=== PATIENT | female | born 1960 | race Caucasian/White ===

== ENCOUNTER → 2018-02-01 09:33 | Outpatient (CLI) | payer OTHER, SELFPAY | DX: Z23 Encounter for immunization (principal) | CPT/HCPCS: 90471; 90686 ==

== ENCOUNTER → 2019-02-09 14:20 | Outpatient (CLI) | payer OTHER, SELFPAY | PROVIDERS: PCP Family Medicine | DX: Z23 Encounter for immunization (principal) | CPT/HCPCS: 90471; 90686 ==

== ENCOUNTER → 2019-04-13 06:39 | Outpatient (CLI) | payer OTHER, SELFPAY ==
--- NOTE | 2019-04-13 06:42 | DI.MRI.S_ITS ---
PROCEDURE: MR STROKE Pre- and post-contrast brain MRI, non-contrast brain MR angiogram, pre- and postcontrast neck MR angiogram INDICATIONS: Vertigo hearing loss on right and confusion TECHNIQUE: Brain: Noncontrast axial T1 spin echo, axial T2 fast spin echo, sagittal and axial FLAIR, coronal T2 fast spin echo, axial gradient echo, axial diffusion and ADC through the brain. After the administration of contrast, axial 3D VIBE of the cranial vasculature and brain. Brain MRA: Non-contrast 3-D time of flight MR angiogram, with multiple covvyaq-bvpdzopim-vweesrxezp (MIP) reformats performed. Neck MRA: Axial and sagittal TruFISP through the neck. Coronal dynamic MR angiogram during administration of contrast in the arterial and venous phases, with 3-dimenstional rdtxyhr-tqzkxbivk-jehiontapb (MIP) reformats constructed from subtraction images. COMPARISON: None. FINDINGS: Image quality: Excellent. BRAIN: CSF spaces: Ventricles are normal in size and shape. Basal cisterns are patent. No extra-axial fluid collections. Brain: No intracranial bleeds or mass effects. There is mild cerebral volume loss. Mild periventricular and subcortical white matter chronic small vessel ischemic changes are present. Diffusion weighted images show no acute ischemic insults. Brainstem appears normal. Normal intravascular flow voids are present. No abnormal intracranial enhancement. Skull and face: Calvarial marrow signal is normal. Orbits appear normal. Sinuses: Sinuses and mastoids are clear. BRAIN MR ANGIOGRAM: Anterior circulation: Intracranial internal carotid arteries are normal in size and enhancement. The flow within the paired anterior cerebral arteries is normal and symmetric. The flow within the middle cerebral arteries is normal and symmetric. The anterior communicating artery is seen. No stenoses, occlusions, or aneurysms. Posterior circulation: The visualized portions of the vertebral arteries demonstrate normal caliber, and join to form a normal appearing basilar artery. The flow within the posterior cerebral arteries is normal and symmetric. No stenoses, occlusions, or aneurysms. NECK MR ANGIOGRAM: Carotids: Great vessels demonstrate a conventional anatomy as they arise from the aortic arch. The origins of the common carotid arteries appear patent. The calibers and courses of both common carotid arteries are normal. The bifurcation regions appear normal bilaterally. The internal carotid arteries demonstrate normal course and caliber. Posterior circulation: The origins of the vertebral arteries appear patent. More superior portions of both vertebral arteries demonstrate normal course and caliber, and join to form a normal appearing basilar artery. Miscellaneous: Subclavian arteries appear patent. Pre-contrast images through the neck show no soft tissue abnormalities. IMPRESSION: BRAIN MRI: 1. No acute intracranial abnormalities. 2. Cerebral volume loss and chronic microvascular ischemic changes. BRAIN MR ANGIOGRAM: 1. No high-grade stenosis or occlusion in anterior circulations. 2. No high-grade stenosis or occlusion in posterior circulations. NECK MR ANGIOGRAM: 1. High-grade stenosis (>70%) in proximal left vertebral artery. 2. Mild stenosis (~30%) in proximal right common carotid artery. Dictated by: Pankaj López M.D. on 04/13/2019 at 9:32 Approved by: Pankaj López M.D. on 04/13/2019 at 19:17
== END ==
PROVIDERS: PCP Family Medicine; Visit Provider Family Medicine
DX: I65.02 Occlusion and stenosis of left vertebral artery (principal); I65.21 Occlusion and stenosis of right carotid artery; H91.90 Unspecified hearing loss, unspecified ear; R41.0 Disorientation, unspecified; R42 Dizziness and giddiness
CPT/HCPCS: 70548; 70553

== ENCOUNTER → 2019-04-18 07:30 | Outpatient (ROUT) | payer OTHER, SELFPAY ==
[2019-04-18 08:13] LABS: Cholesterol 206 mg/dL (140-199); Glucose 108 mg/dL (80-110); HDL Cholesterol 46 mg/dL (40-60); LDL Cholesterol Calculated 144 mg/dL (<100); Triglycerides 82 mg/dL (35-150)
== END ==
PROVIDERS: PCP Family Medicine; Visit Provider Family Medicine
DX: Z13.220 Encounter for screening for lipoid disorders (principal)
CPT/HCPCS: 36415; 80061; 82947

== ENCOUNTER 2019-04-23 12:15 | Outpatient (RCR) | payer OTHER, SELFPAY ==
--- NOTE | 2019-04-14 14:54 | PT.OIE ---
Current Diagnoses Dizziness and giddiness (04/14/19) Past Medical History (Last Updated 08/21/18 @ 10:27 by Venus Mckay MD) Genital herpes (Chronic) Seasonal allergies (Chronic) Past Surgical History (Last Updated 08/21/18 @ 10:27 by Venus Mckay MD) Status post appendectomy (Resolved) Status post delivery (Resolved 10/15/79) Visit Care Team Role Provider Type Venus Mckay MD Attending Provider Physician Primary Care Provider Specialty: [facility] Address: [address] [place] [address] Email: [email or web address] Physical Therapy Initial Evaluation PT-OP-A Visit Information Start: 04/14/19 07:32 Freq: Status: Active Protocol: Document 04/14/19 09:02 MB (Rec: 04/14/19 09:39 MB [id number]) Out-Patient Physical Therapy Visit Information Visit Information Visit Type Initial Evaluation Visit Note Pt has 60 visits Visit Start Time 09:02 Visit Stop Time 09:42 Total Visit Minutes 40 Visit Number 60 Evaluation Information Evaluation Date 04/14/19 PT-OP-B Current Condition Start: 04/14/19 07:32 Freq: Status: Active Protocol: Document 04/14/19 09:02 MB (Rec: 04/14/19 09:39 MB [id number]) Current Condition History of Current Condition Onset Date 04/05/19 Current Complaints Dizziness and neck stiffness History of Current Condition 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 She couldn 't remember her passwords. The next date, she had spinning vertigo when looking down and to the right. She is getting better. She has a strong family history of strokes. Her father and mother had ischemic strokes. Her half-sister had a hemmorrhagic stroke at age 60 and from that. She does not get HAs. Since she was 13 y/o she started having chiropractor care for dizziness and C1-2. She has an adjustment 6-12x/year when she gets dizzy. She us getting high velocity manipulations. She started seeing the optician manager as well. She had manipulation yesterday and was dizzy after treatment . 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 She works 3 12s. Pt sleeps on her right side or back and she has right UE numbness when lying on her right side. Pt denies passing out. She feels light-headed. Pt reports hearing loss in right ear. Pt reports roaring in right ear occ. Pt reports history of fear of heights. Pt reports upper orbital tension, deviated septum and all right sided plugged up. Pt reports right side of jaw goes out. The chiropractor adjusted it yesterday. She is no longer chewing gum. She has upped her B12. Pt went to ENT 2 years ago and she was checked out for BPPV. Prior Treatments and Tests ENT d/t dizziness Regular chiropractor upper cervical manipulations for greater than 45 years d/t dizziness and neck stiffness MRI/MRA head yesterday revealed NAD and 30% occlusion right carotid and 70% left vertebral arteries Future Testing and Treatments Planned Pt is willing to defer future chiropractor manipulations. 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 PT-OP-C Subjective Start: 04/14/19 07:32 Freq: Status: Active Protocol: Document 04/14/19 09:02 MB (Rec: 04/14/19 12:55 MB [id number]) OP-PT Subjective Patient Comments Patient Comments See history of current condition section Patient Questionnaires Dizziness Handicap Inventory DHI Score 72/100, perception of severe handicap DHI Functional Impairment 60 to 79% Impaired (Score 60- 79) PT-OP-K Range of Motion Start: 04/14/19 07:32 Freq: Status: Active Protocol: Document 04/14/19 09:02 MB (Rec: 04/14/19 12:55 MB [id number]) Cervical Spine Range of Motion Cervical Spine Active Testing Position Standing Flexion 20 Extension 30 Rotation Left 70 Rotation Right 60 Shoulder Goniometric Range of Motion Shoulder ROM Limitations Comments B functional PT-OP-M Strength Start: 04/14/19 07:32 Freq: Status: Active Protocol: Document 04/14/19 09:02 MB (Rec: 04/14/19 12:55 MB [id number]) Shoulder Strength Shoulder Manual Muscle Testing Left Flexion 5 Normal Abduction (C5) 5 Normal Right Flexion 5 Normal Abduction (C5) 5 Normal Elbow/Forearm Strength Elbow and Forearm Manual Muscle Testing Left Flexion (C6) 5 Normal Extension (C7) 5 Normal Pronation 5 Normal Supination 5 Normal Right Flexion (C6) 5 Normal Extension (C7) 5 Normal Pronation 5 Normal Supination 5 Normal Wrist Strength Wrist Manual Muscle Testing Left Flexion (C7) 5 Normal Extension (C6) 5 Normal Right Flexion (C7) 5 Normal Extension (C6) 5 Normal PT-OP-O Vestibular Start: 04/14/19 07:33 Freq: Status: Active Protocol: Document 04/14/19 09:02 MB (Rec: 04/14/19 12:55 MB [id number]) Vestibular Assessment Visual Testing Smooth Pursuits Horizontal Normal Smooth Pursuits Vertical Normal Convergence Test WNL Spontaneous Nystagmus Negative Positional Testing Kelly-Hallpike Negative Left,Negative Right Rolling Test Negative Left,Negative Right Supine to Sit Negative Sit to Supine Negative PT-OP-T Assessment and Plan Start: 04/14/19 07:32 Freq: Status: Active Protocol: Document 04/14/19 09:02 MB (Rec: 04/14/19 12:55 MB [id number]) Physical Therapy Assessment Rehab Potential Rehabilitation Potential Good Evaluation Complexity Number of Personal Factors/Comorbidities 1-2 Number of Body Systems Impaired 1-2 Impairments Impairments Pain,Posture,Soft Tissue Mobility,Vestibular Other Impairments 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 Systems involved include vestibular, cervical, possible left vertebral artery , postural. Goals 4 Chef Head Goal (LTG) Pt will perform progressive HEP with I including postural, ROM, VOR, core, shoulder and intrascapular strengthening by 06/15/19. 3 Jail Goal (LTG) Pt will report a 75% improvement in neck stiffness by 06/15/19. LTG Duration 8 weeks 2 Jail Goal (LTG) Pt will present with improved cervical AROM to extension to 30 deg and B rotation to 60 deg without pain by 06/15/19. LTG Duration 8 weeks 1 Chef Head Goal (LTG) Pt will present with improved Dizziness Handicap Index score to reflect no more than low perception of handicap by 06/15. LTG Duration 8 weeks Assessment Summary Assessment Pt is a 59 y/o female presenting with reports of positional vertigo when looking down and to the right that has been improving. She reports a long histoy of dizziness that started when she was 13 y/o and she reports having received intensive care medicine specialist for high velocity manipulations of C1-2 since she was 13 y/o. PT reviewed MRI/MRA of the head yesterday that reveals 70% stenosis left vertebral and 30% stenosis of right carotid. PT encourages pt to follow-up with doctor about findings and PT does encourage pt to reconsider no longer receiving upper cervical cavitations by chiropractor and to monitor her BP and cholesterol. She cut out dairy and thinks this may be helpful. Central screen is negative today. VOR Head Thrust deferred today d/t triaging and pt complaints of pain when she moves her head and with positional vertigo testing. Kelly-Hallpike and Roll Testing are both negative B this date for nystagmus and dizziness. She does not present with BPPV this date. Pt does present with decreasing BP supine to stand and reports history of feeling light-headed. BP & HR in left UE: supine 127/88, 79; standing 110/89, 98 and machine does not read after this. It is possible that pt does present with orthostasis given 17 mmHg drop and symptoms. Pt presents with decreased cervical ROM and pain with rotation and this indicates a cervicogenic component to her sxs. Decreased cervical ROM and pain with cervical rotation limit head movement and engagement of the VOR. In this manner, she will benefit from cervical and postural exercises as well. Pt will benefit from PT for vestibular , postural, cervical and balance training. Barriers include work requirements with long hours at the computer and vertebral artery changes. Physical Therapy Plan Frequency and Duration Frequency of Treatment 2x/Week Duration of Treatment 8 weeks Plan of Care Start Date 04/14/19 Plan of Care End Date 06/15/19 Therapeutic Interventions Therapeutic Interventions Balance Training,Canalithic Repositioning,Home Exercise Program,Manual Therapy, Neuromuscular Re-education, Patient/Caregiver Education, Self-Care/Home Management,Soft Tissue Mobilization,Taping, Therapeutic Exercises, Vestibular Rehabilitation Modalities Cold Pack/Ice Massage,Electric Stimulation,Hot Packs, Ultrasound Next Visit Focus/Plan Next Note Type Treatment Note Next Visit Plan Assess VOR via DVA eye chart and give exercises as appropriate, consider other cervical exercises including racquet ball with gentle cervical rotation.
--- NOTE | 2019-04-14 14:58 | PT.OIE ---
Current Diagnoses Dizziness and giddiness (04/14/19) Past Medical History (Last Updated 08/21/18 @ 10:27 by Venus Mckay MD) Genital herpes (Chronic) Seasonal allergies (Chronic) Past Surgical History (Last Updated 08/21/18 @ 10:27 by Venus Mckay MD) Status post appendectomy (Resolved) Status post delivery (Resolved 10/15/79) Visit Care Team Role Provider Type Venus Mckay MD Attending Provider Physician Primary Care Provider Specialty: [facility] Address: [address] [place] [address] Email: [email or web address] Physical Therapy Initial Evaluation PT-OP-A Visit Information Start: 04/14/19 07:32 Freq: Status: Active Protocol: Document 04/14/19 09:02 MB (Rec: 04/14/19 09:39 MB [id number]) Out-Patient Physical Therapy Visit Information Visit Information Visit Type Initial Evaluation Visit Note Pt has 60 visits Visit Start Time 09:02 Visit Stop Time 09:42 Total Visit Minutes 40 Visit Number 60 Evaluation Information Evaluation Date 04/14/19 PT-OP-B Current Condition Start: 04/14/19 07:32 Freq: Status: Active Protocol: Document 04/14/19 09:02 MB (Rec: 04/14/19 09:39 MB [id number]) Current Condition History of Current Condition Onset Date 04/05/19 Current Complaints Dizziness and neck stiffness History of Current Condition 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 She couldn 't remember her passwords. The next date, she had spinning vertigo when looking down and to the right. She is getting better. She has a strong family history of strokes. Her father and mother had ischemic strokes. Her half-sister had a hemmorrhagic stroke at age 60 and from that. She does not get HAs. Since she was 13 y/o she started having chiropractor care for dizziness and C1-2. She has an adjustment 6-12x/year when she gets dizzy. She us getting high velocity manipulations. She started seeing the patient services manager as well. She had manipulation yesterday and was dizzy after treatment . 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 She works 3 12s. Pt sleeps on her right side or back and she has right UE numbness when lying on her right side. Pt denies passing out. She feels light-headed. Pt reports hearing loss in right ear. Pt reports roaring in right ear occ. Pt reports history of fear of heights. Pt reports upper orbital tension, deviated septum and all right sided plugged up. Pt reports right side of jaw goes out. The chiropractor adjusted it yesterday. She is no longer chewing gum. She has upped her B12. Pt went to ENT 2 years ago and she was checked out for BPPV. Prior Treatments and Tests ENT d/t dizziness Regular chiropractor upper cervical manipulations for greater than 45 years d/t dizziness and neck stiffness MRI/MRA head yesterday revealed NAD and 30% occlusion right carotid and 70% left vertebral arteries Future Testing and Treatments Planned Pt is willing to defer future chiropractor manipulations. 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 PT-OP-C Subjective Start: 04/14/19 07:32 Freq: Status: Active Protocol: Document 04/14/19 09:02 MB (Rec: 04/14/19 12:55 MB [id number]) OP-PT Subjective Patient Comments Patient Comments See history of current condition section Patient Questionnaires Dizziness Handicap Inventory DHI Score 72/100, perception of severe handicap DHI Functional Impairment 60 to 79% Impaired (Score 60- 79) PT-OP-K Range of Motion Start: 04/14/19 07:32 Freq: Status: Active Protocol: Document 04/14/19 09:02 MB (Rec: 04/14/19 12:55 MB [id number]) Cervical Spine Range of Motion Cervical Spine Active Testing Position Standing Flexion 20 Extension 30 Rotation Left 70 Rotation Right 60 Shoulder Goniometric Range of Motion Shoulder ROM Limitations Comments B functional PT-OP-M Strength Start: 04/14/19 07:32 Freq: Status: Active Protocol: Document 04/14/19 09:02 MB (Rec: 04/14/19 12:55 MB [id number]) Shoulder Strength Shoulder Manual Muscle Testing Left Flexion 5 Normal Abduction (C5) 5 Normal Right Flexion 5 Normal Abduction (C5) 5 Normal Elbow/Forearm Strength Elbow and Forearm Manual Muscle Testing Left Flexion (C6) 5 Normal Extension (C7) 5 Normal Pronation 5 Normal Supination 5 Normal Right Flexion (C6) 5 Normal Extension (C7) 5 Normal Pronation 5 Normal Supination 5 Normal Wrist Strength Wrist Manual Muscle Testing Left Flexion (C7) 5 Normal Extension (C6) 5 Normal Right Flexion (C7) 5 Normal Extension (C6) 5 Normal PT-OP-O Vestibular Start: 04/14/19 07:33 Freq: Status: Active Protocol: Document 04/14/19 09:02 MB (Rec: 04/14/19 12:55 MB [id number]) Vestibular Assessment Visual Testing Smooth Pursuits Horizontal Normal Smooth Pursuits Vertical Normal Convergence Test WNL Spontaneous Nystagmus Negative Positional Testing Kelly-Hallpike Negative Left,Negative Right Rolling Test Negative Left,Negative Right Supine to Sit Negative Sit to Supine Negative PT-OP-T Assessment and Plan Start: 04/14/19 07:32 Freq: Status: Active Protocol: Document 04/14/19 09:02 MB (Rec: 04/14/19 12:55 MB [id number]) Physical Therapy Assessment Rehab Potential Rehabilitation Potential Good Evaluation Complexity Number of Personal Factors/Comorbidities 1-2 Number of Body Systems Impaired 1-2 Impairments Impairments Pain,Posture,Soft Tissue Mobility,Vestibular Other Impairments 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 Systems involved include vestibular, cervical, possible left vertebral artery , postural. Goals 4 Casino Attendant Goal (LTG) Pt will perform progressive HEP with I including postural, ROM, VOR, core, shoulder and intrascapular strengthening by 06/15/19. 3 Jail Goal (LTG) Pt will report a 75% improvement in neck stiffness by 06/15/19. LTG Duration 8 weeks 2 Jail Goal (LTG) Pt will present with improved cervical AROM to extension to 30 deg and B rotation to 60 deg without pain by 06/15/19. LTG Duration 8 weeks 1 Casino Attendant Goal (LTG) Pt will present with improved Dizziness Handicap Index score to reflect no more than low perception of handicap by 06/15. LTG Duration 8 weeks Assessment Summary Assessment Pt is a 59 y/o female presenting with reports of positional vertigo when looking down and to the right that has been improving. She reports a long histoy of dizziness that started when she was 13 y/o and she reports having received health care legal assistant for high velocity manipulations of C1-2 since she was 13 y/o. PT reviewed MRI/MRA of the head yesterday that reveals 70% stenosis left vertebral and 30% stenosis of right carotid. PT encourages pt to follow-up with doctor about findings and PT does encourage pt to reconsider no longer receiving upper cervical cavitations by chiropractor and to monitor her BP and cholesterol. She cut out dairy and thinks this may be helpful. Central screen is negative today. VOR Head Thrust deferred today d/t triaging and pt complaints of pain when she moves her head and with positional vertigo testing. Kelly-Hallpike and Roll Testing are both negative B this date for nystagmus and dizziness. She does not present with BPPV this date. Pt does state that she has had bouts of dizziness in the past, right aural plugging with sinus pressure and some hearing changes including right ear hearing loss and roaring. Possible work-up for Meniere's Disease may be appropriate in the future. Pt does present with decreasing BP supine to stand and reports history of feeling light-headed. BP & HR in left UE: supine 127/88, 79; standing 110/89, 98 and machine does not read after this. It is possible that pt does present with orthostasis given 17 mmHg drop and symptoms. Pt presents with decreased cervical ROM and pain with rotation and this indicates a cervicogenic component to her sxs. Decreased cervical ROM and pain with cervical rotation limit head movement and engagement of the VOR. In this manner, she will benefit from cervical and postural exercises as well. Pt will benefit from PT for vestibular , postural, cervical and balance training. Barriers include work requirements with long hours at the computer and vertebral artery changes. Physical Therapy Plan Frequency and Duration Frequency of Treatment 2x/Week Duration of Treatment 8 weeks Plan of Care Start Date 04/14/19 Plan of Care End Date 06/15/19 Therapeutic Interventions Therapeutic Interventions Balance Training,Canalithic Repositioning,Home Exercise Program,Manual Therapy, Neuromuscular Re-education, Patient/Caregiver Education, Self-Care/Home Management,Soft Tissue Mobilization,Taping, Therapeutic Exercises, Vestibular Rehabilitation Modalities Cold Pack/Ice Massage,Electric Stimulation,Hot Packs, Ultrasound Other Referrals/Consults Referrals/Consults Recommended Follow-up with doctor about fluctuating/dropping BP. Also, pt with chronic episodic dizziness, roaring and hearing loss in right ear and so work -up for Meniere's may be appropriate in the future. Also, recommend that she follow-up with doctor about vertebral artery changes in setting of dizziness, 45+ years of chiropractic manipulation fo C1-2 and 3 immediate family member deaths d/t stroke. Next Visit Focus/Plan Next Note Type Treatment Note Next Visit Plan Assess VOR via DVA eye chart and give exercises as appropriate, consider other cervical exercises including racquet ball with gentle cervical rotation.
--- NOTE | 2019-04-16 11:37 | PT.OTN ---
Current Diagnoses Dizziness and giddiness (04/16/19) Physical Therapy Treatment Note PT-OP-A Visit Information Start: 04/14/19 07:32 Freq: Status: Active Protocol: Document 04/16/19 10:33 MB (Rec: 04/16/19 11:34 MB [id number]) Out-Patient Physical Therapy Visit Information Visit Information Visit Type Initial Evaluation Visit Note Pt has 60 visits Visit Start Time 10:33 Visit Stop Time 11:26 Total Visit Minutes 53 Visit Number Evaluation Information Evaluation Date 04/14/19 PT-OP-B Current Condition Start: 04/14/19 07:32 Freq: Status: Active Protocol: Document 04/14/19 09:02 MB (Rec: 04/14/19 09:39 MB [id number]) Current Condition History of Current Condition Onset Date 04/05/19 Current Complaints Dizziness and neck stiffness History of Current Condition 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 She couldn 't remember her passwords. The next date, she had spinning vertigo when looking down and to the right. She is getting better. She has a strong family history of strokes. Her father and mother had ischemic strokes. Her half-sister had a hemmorrhagic stroke at age 60 and from that. She does not get HAs. Since she was 13 y/o she started having chiropractor care for dizziness and C1-2. She has an adjustment 6-12x/year when she gets dizzy. She us getting high velocity manipulations. She started seeing the electrical high tension tester as well. She had manipulation yesterday and was dizzy after treatment . 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 She works 3 12s. Pt sleeps on her right side or back and she has right UE numbness when lying on her right side. Pt denies passing out. She feels light-headed. Pt reports hearing loss in right ear. Pt reports roaring in right ear occ. Pt reports history of fear of heights. Pt reports upper orbital tension, deviated septum and all right sided plugged up. Pt reports right side of jaw goes out. The chiropractor adjusted it yesterday. She is no longer chewing gum. She has upped her B12. Pt went to ENT 2 years ago and she was checked out for BPPV. Prior Treatments and Tests ENT d/t dizziness Regular chiropractor upper cervical manipulations for greater than 45 years d/t dizziness and neck stiffness MRI/MRA head yesterday revealed NAD and 30% occlusion right carotid and 70% left vertebral arteries Future Testing and Treatments Planned Pt is willing to defer future chiropractor manipulations. 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 She had dizziness rolling to the right and sharp neck pain on the posterior right this morning. She has had dizziness all morning. PT-OP-K Range of Motion Start: 04/14/19 07:32 Freq: Status: Active Protocol: Document 04/14/19 09:02 MB (Rec: 04/14/19 12:55 MB [id number]) Cervical Spine Range of Motion Cervical Spine Active Testing Position Standing Flexion 20 Extension 30 Rotation Left 70 Rotation Right 60 Shoulder Goniometric Range of Motion Shoulder ROM Limitations Comments B functional PT-OP-M Strength Start: 04/14/19 07:32 Freq: Status: Active Protocol: Document 04/14/19 09:02 MB (Rec: 04/14/19 12:55 MB [id number]) Shoulder Strength Shoulder Manual Muscle Testing Left Flexion 5 Normal Abduction (C5) 5 Normal Right Flexion 5 Normal Abduction (C5) 5 Normal Elbow/Forearm Strength Elbow and Forearm Manual Muscle Testing Left Flexion (C6) 5 Normal Extension (C7) 5 Normal Pronation 5 Normal Supination 5 Normal Right Flexion (C6) 5 Normal Extension (C7) 5 Normal Pronation 5 Normal Supination 5 Normal Wrist Strength Wrist Manual Muscle Testing Left Flexion (C7) 5 Normal Extension (C6) 5 Normal Right Flexion (C7) 5 Normal Extension (C6) 5 Normal PT-OP-O Vestibular Start: 04/14/19 07:33 Freq: Status: Active Protocol: Document 04/14/19 09:02 MB (Rec: 04/14/19 12:55 MB [id number]) Vestibular Assessment Visual Testing Smooth Pursuits Horizontal Normal Smooth Pursuits Vertical Normal Convergence Test WNL Spontaneous Nystagmus Negative Positional Testing Kelly-Hallpike Negative Left,Negative Right Rolling Test Negative Left,Negative Right Supine to Sit Negative Sit to Supine Negative PT-OP-Q Treatments Start: 04/14/19 07:32 Freq: Status: Active Protocol: Document 04/16/19 10:33 MB (Rec: 04/16/19 11:34 MB [id number]) Therapeutic Exercises Standing Exercises Scapular retraction and chin tuck Comments Perform throughout the day Manual Therapy Treatment Manual Techniques MWM B SCM with PT providing trigger point pressure and pt performing active cervical rotation Comments Performed this date, tighter on the left. Consider adding for self-massage in future. Suboccipital release Self-Care/Home Management Treatment Education Other Education Ed pt to ask for copy of brain MRI/MRA and follow-up with provider about findings, ed pt in changing work posture by using computer on wheels and head set--emphasis on importance of this, ed pt in use of contour pillow, breathing PT-OP-T Assessment and Plan Start: 04/14/19 07:32 Freq: Status: Active Protocol: Document 04/16/19 10:33 MB (Rec: 04/16/19 11:34 MB [id number]) Physical Therapy Assessment Rehab Potential Rehabilitation Potential Good Evaluation Complexity Number of Personal Factors/Comorbidities 1-2 Number of Body Systems Impaired 1-2 Impairments Impairments Pain,Posture,Soft Tissue Mobility,Vestibular Other Impairments 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 Systems involved include vestibular, cervical, possible left vertebral artery , postural. Goals 4 Group Home Goal (LTG) Pt will perform progressive HEP with I including postural, ROM, VOR, core, shoulder and intrascapular strengthening by 06/15/19. 3 Group Home Goal (LTG) Pt will report a 75% improvement in neck stiffness by 06/15/19. LTG Duration 8 weeks 2 Group Home Goal (LTG) Pt will present with improved cervical AROM to extension to 30 deg and B rotation to 60 deg without pain by 06/15/19. LTG Duration 8 weeks 1 Group Home Goal (LTG) Pt will present with improved Dizziness Handicap Index score to reflect no more than low perception of handicap by 2/11 /20. LTG Duration 8 weeks Assessment Summary Assessment Initiated manual work this date. Pt negative for BPPV again this date. PT favors poor neck position and muscle contribution to irritate C1-2 with sleeping as provoker of positional (rolling) dizziness . Pt concerned about symptoms, lots of encouragemnt provided . Con't manual, postural, self -fascial and other exercises. Ed in some to perform at work for relief--racquet ball and band. Physical Therapy Plan Frequency and Duration Frequency of Treatment 2x/Week Duration of Treatment 8 weeks Plan of Care Start Date 04/14/19 Plan of Care End Date 06/15/19 Therapeutic Interventions Therapeutic Interventions Balance Training,Canalithic Repositioning,Home Exercise Program,Manual Therapy, Neuromuscular Re-education, Patient/Caregiver Education, Self-Care/Home Management,Soft Tissue Mobilization,Taping, Therapeutic Exercises, Vestibular Rehabilitation Modalities Cold Pack/Ice Massage,Electric Stimulation,Hot Packs, Ultrasound Other Referrals/Consults Referrals/Consults Recommended Follow-up with doctor about fluctuating/dropping BP. Also, pt with chronic episodic dizziness, roaring and hearing loss in right ear and so work -up for Meniere's may be appropriate in the future. Also, recommend that she follow-up with doctor about vertebral artery changes in setting of dizziness, 45+ years of chiropractic manipulation fo C1-2 and 3 immediate family member deaths d/t stroke. Next Visit Focus/Plan Next Note Type Treatment Note Next Visit Plan Assess VOR via DVA eye chart and give exercises as appropriate, consider other cervical exercises including racquet ball with gentle cervical rotation.
--- NOTE | 2019-04-22 15:37 | PT-OP ANOTE ---
[PT speaks with pt. Pt saw ENT, Dr. Wu Adams, who was concerned about pt's left vertebral artery stenosis. He also wanted to assess her for BPPV tomorrow and pt states that she would rather come to PT d/t having tested negative for BPPV x2. She to call ENT office and request office note. Pt also states that she saw a new PCP, Dr. Tino Whaley, and he is going to refer her to a vascular surgeon to assess her vertebral arteries. Pt c/o neck stiffness. PT educates her that will initiate Counterstrain tomorrow.
--- NOTE | 2019-04-23 13:11 | PT.OTN ---
Current Diagnoses Dizziness and giddiness (04/23/19) Physical Therapy Treatment Note PT-OP-A Visit Information Start: 04/14/19 07:32 Freq: Status: Active Protocol: Document 04/23/19 12:15 MB (Rec: 04/23/19 13:11 MB [id number]) Out-Patient Physical Therapy Visit Information Visit Information Visit Type Treatment Note Visit Note Pt has 60 visits Visit Start Time 12:15 Visit Stop Time 12:55 Total Visit Minutes 40 Visit Number 360 PT-OP-B Current Condition Start: 04/14/19 07:32 Freq: Status: Active Protocol: Document 04/14/19 09:02 MB (Rec: 04/14/19 09:39 MB [id number]) Current Condition History of Current Condition Onset Date 04/05/19 Current Complaints Dizziness and neck stiffness History of Current Condition 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 She couldn 't remember her passwords. The next date, she had spinning vertigo when looking down and to the right. She is getting better. She has a strong family history of strokes. Her father and mother had ischemic strokes. Her half-sister had a hemmorrhagic stroke at age 60 and from that. She does not get HAs. Since she was 13 y/o she started having chiropractor care for dizziness and C1-2. She has an adjustment 6-12x/year when she gets dizzy. She us getting high velocity manipulations. She started seeing the volcanology teacher as well. She had manipulation yesterday and was dizzy after treatment . 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 She works 3 12s. Pt sleeps on her right side or back and she has right UE numbness when lying on her right side. Pt denies passing out. She feels light-headed. Pt reports hearing loss in right ear. Pt reports roaring in right ear occ. Pt reports history of fear of heights. Pt reports upper orbital tension, deviated septum and all right sided plugged up. Pt reports right side of jaw goes out. The chiropractor adjusted it yesterday. She is no longer chewing gum. She has upped her B12. Pt went to ENT 2 years ago and she was checked out for BPPV. Prior Treatments and Tests ENT d/t dizziness Regular chiropractor upper cervical manipulations for greater than 45 years d/t dizziness and neck stiffness MRI/MRA head yesterday revealed NAD and 30% occlusion right carotid and 70% left vertebral arteries Future Testing and Treatments Planned Pt is willing to defer future chiropractor manipulations. 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 Adams, ENT, who states that her dizziness is related to her vertebral artery and possible BPPV. Per Dr. Adams note, pt with right hearing change. Pt has new PCP, Dr. Whaley, and thought she would see a vascular surgeon but now is referred to a neurologist. Pt reports her dizziness is the same for three weeks. The off balance is new. She has to wait on the edge of bed in the morning after rolling to the right. She reports trouble with spinning sensation, tightness on neck. She got a small anxiety pill to use. PT-OP-K Range of Motion Start: 04/14/19 07:32 Freq: Status: Active Protocol: Document 04/14/19 09:02 MB (Rec: 04/14/19 12:55 MB [id number]) Cervical Spine Range of Motion Cervical Spine Active Testing Position Standing Flexion 20 Extension 30 Rotation Left 70 Rotation Right 60 Shoulder Goniometric Range of Motion Shoulder ROM Limitations Comments B functional PT-OP-M Strength Start: 04/14/19 07:32 Freq: Status: Active Protocol: Document 04/14/19 09:02 MB (Rec: 04/14/19 12:55 MB [id number]) Shoulder Strength Shoulder Manual Muscle Testing Left Flexion 5 Normal Abduction (C5) 5 Normal Right Flexion 5 Normal Abduction (C5) 5 Normal Elbow/Forearm Strength Elbow and Forearm Manual Muscle Testing Left Flexion (C6) 5 Normal Extension (C7) 5 Normal Pronation 5 Normal Supination 5 Normal Right Flexion (C6) 5 Normal Extension (C7) 5 Normal Pronation 5 Normal Supination 5 Normal Wrist Strength Wrist Manual Muscle Testing Left Flexion (C7) 5 Normal Extension (C6) 5 Normal Right Flexion (C7) 5 Normal Extension (C6) 5 Normal PT-OP-O Vestibular Start: 04/14/19 07:33 Freq: Status: Active Protocol: Document 04/14/19 09:02 MB (Rec: 04/14/19 12:55 MB [id number]) Vestibular Assessment Visual Testing Smooth Pursuits Horizontal Normal Smooth Pursuits Vertical Normal Convergence Test WNL Spontaneous Nystagmus Negative Positional Testing Kelly-Hallpike Negative Left,Negative Right Rolling Test Negative Left,Negative Right Supine to Sit Negative Sit to Supine Negative PT-OP-Q Treatments Start: 04/14/19 07:32 Freq: Status: Active Protocol: Document 04/23/19 12:15 MB (Rec: 04/23/19 13:11 MB [id number]) Manual Therapy Treatment Other Other Manual Treatments Counterstrain to assess and treat fascial tightness. Pt is agreeable. PT treats stacks: vestibular neural fascial, epidural venous. Also performed gentle suboccipital release. 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 Systems involved include vestibular, cervical, possible left vertebral artery , postural. Goals 4 Build Engineer Goal (LTG) Pt will perform progressive HEP with I including postural, ROM, VOR, core, shoulder and intrascapular strengthening by 06/15/19. 3 Fdc Goal (LTG) Pt will report a 75% improvement in neck stiffness by 06/15/19. LTG Duration 8 weeks 2 Build Engineer Goal (LTG) Pt will present with improved cervical AROM to extension to 30 deg and B rotation to 60 deg without pain by 06/15/19. LTG Duration 8 weeks 1 Build Engineer Goal (LTG) Pt will present with improved Dizziness Handicap Index score to reflect no more than low perception of handicap by 2/11 /20. LTG Duration 8 weeks Assessment Summary Assessment Initiated Counterstrain this date. All Counterstrain treatment is gentle, slow and superficial treatment with pt' s head and neck supported. Pt is agreeable. Pt has dizziness lying flat with cervical support, reports dizziness with brushing teeth and combing hair on the right side . Pt presents with neck in left side bend in supine that always returns to this position. PT feels pt might have an upper cervical malalignment given recent manipulation by chiropractor. PT encourages pt to go to ED if her sxs worse. PT encourages pt to call MD office to let her know about multiple manipulations. Physical Therapy Plan Frequency and Duration Frequency of Treatment 2x/Week Duration of Treatment 8 weeks Plan of Care Start Date 04/14/19 Plan of Care End Date 06/15/19 Therapeutic Interventions Therapeutic Interventions Balance Training,Canalithic Repositioning,Home Exercise Program,Manual Therapy, Neuromuscular Re-education, Patient/Caregiver Education, Self-Care/Home Management,Soft Tissue Mobilization,Taping, Therapeutic Exercises, Vestibular Rehabilitation Modalities Cold Pack/Ice Massage,Electric Stimulation,Hot Packs, Ultrasound Other Referrals/Consults Referrals/Consults Recommended Follow-up with doctor about fluctuating/dropping BP. Also, pt with chronic episodic dizziness, roaring and hearing loss in right ear and so work -up for Meniere's may be appropriate in the future. Also, recommend that she follow-up with doctor about vertebral artery changes in setting of dizziness, 45+ years of chiropractic manipulation fo C1-2 and 3 immediate family member deaths d/t stroke. Next Visit Focus/Plan Next Note Type Treatment Note Next Visit Plan Assess VOR via DVA eye chart and give exercises as appropriate, consider other cervical exercises including racquet ball with gentle cervical rotation.
--- NOTE | 2019-04-23 16:12 | PT-OP ANOTE ---
Pt does not report increased dizziness during gentle fascial Counterstrain in supine with head supported. She reports dizziness when moving to sitting up to the left that has been ongoing for three weeks.
--- NOTE | 2019-05-10 12:09 | PT.OPDS ---
Current Diagnoses Dizziness and giddiness (04/23/19) Visit Care Team Role Provider Type Venus Mckay MD Attending Provider Physician Primary Care Provider Specialty: Family Practice Address: [address] [place] [address], [address], [place], [address] Email: [email or web address] Visit Number Visit Number Discharge Summary PT-OP-B Current Condition Start: 04/14/19 07:32 Freq: Status: Active Protocol: Document 04/14/19 09:02 MB (Rec: 04/14/19 09:39 MB [id number]) Current Condition History of Current Condition Onset Date 04/05/19 Current Complaints Dizziness and neck stiffness History of Current Condition 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 She couldn 't remember her passwords. The next date, she had spinning vertigo when looking down and to the right. She is getting better. She has a strong family history of strokes. Her father and mother had ischemic strokes. Her half-sister had a hemmorrhagic stroke at age 60 and from that. She does not get HAs. Since she was 13 y/o she started having chiropractor care for dizziness and C1-2. She has an adjustment 6-12x/year when she gets dizzy. She us getting high velocity manipulations. She started seeing the telegraph repeater installer as well. She had manipulation yesterday and was dizzy after treatment . 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 She works 3 12s. Pt sleeps on her right side or back and she has right UE numbness when lying on her right side. Pt denies passing out. She feels light-headed. Pt reports hearing loss in right ear. Pt reports roaring in right ear occ. Pt reports history of fear of heights. Pt reports upper orbital tension, deviated septum and all right sided plugged up. Pt reports right side of jaw goes out. The chiropractor adjusted it yesterday. She is no longer chewing gum. She has upped her B12. Pt went to ENT 2 years ago and she was checked out for BPPV. Prior Treatments and Tests ENT d/t dizziness Regular chiropractor upper cervical manipulations for greater than 45 years d/t dizziness and neck stiffness MRI/MRA head yesterday revealed NAD and 30% occlusion right carotid and 70% left vertebral arteries Future Testing and Treatments Planned Pt is willing to defer future chiropractor manipulations. 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 Adams, ENT, who states that her dizziness is related to her vertebral artery and possible BPPV. Per Dr. Adams note, pt with right hearing change. Pt has new PCP, Dr. Whaley, and thought she would see a vascular surgeon but now is referred to a neurologist. Pt reports her dizziness is the same for three weeks. The off balance is new. She has to wait on the edge of bed in the morning after rolling to the right. She reports trouble with spinning sensation, tightness on neck. She got a small anxiety pill to use. PT-OP-K Range of Motion Start: 04/14/19 07:32 Freq: Status: Active Protocol: Document 04/14/19 09:02 MB (Rec: 04/14/19 12:55 MB [id number]) Cervical Spine Range of Motion Cervical Spine Active Testing Position Standing Flexion 20 Extension 30 Rotation Left 70 Rotation Right 60 Shoulder Goniometric Range of Motion Shoulder ROM Limitations Comments B functional PT-OP-M Strength Start: 04/14/19 07:32 Freq: Status: Active Protocol: Document 04/14/19 09:02 MB (Rec: 04/14/19 12:55 MB [id number]) Shoulder Strength Shoulder Manual Muscle Testing Left Flexion 5 Normal Abduction (C5) 5 Normal Right Flexion 5 Normal Abduction (C5) 5 Normal Elbow/Forearm Strength Elbow and Forearm Manual Muscle Testing Left Flexion (C6) 5 Normal Extension (C7) 5 Normal Pronation 5 Normal Supination 5 Normal Right Flexion (C6) 5 Normal Extension (C7) 5 Normal Pronation 5 Normal Supination 5 Normal Wrist Strength Wrist Manual Muscle Testing Left Flexion (C7) 5 Normal Extension (C6) 5 Normal Right Flexion (C7) 5 Normal Extension (C6) 5 Normal PT-OP-O Vestibular Start: 04/14/19 07:33 Freq: Status: Active Protocol: Document 04/14/19 09:02 MB (Rec: 04/14/19 12:55 MB [id number]) Vestibular Assessment Visual Testing Smooth Pursuits Horizontal Normal Smooth Pursuits Vertical Normal Convergence Test WNL Spontaneous Nystagmus Negative Positional Testing Kelly-Hallpike Negative Left,Negative Right Rolling Test Negative Left,Negative Right Supine to Sit Negative Sit to Supine Negative PT-OP-T Assessment and Plan Start: 04/14/19 07:32 Freq: Status: Active Protocol: Document 05/10/19 12:08 MB (Rec: 05/10/19 12:09 MB [id number]) Physical Therapy Plan Discharge Physical Therapy Discharge Comments Pt calls to cancel all future appointments. She leaves message without reaason, per front office. PT calls pt and leaves message. Will d/c PT at this time.
== END 2019-04-23 13:15 ==
LOC: PHYS 12:15
PROVIDERS: PCP Family Medicine; Visit Provider Family Medicine
DX: R42 Dizziness and giddiness (principal)
CPT/HCPCS: 97110; 97140; 97162; 97535

== ENCOUNTER → 2019-04-29 16:43 | Outpatient (CLI) | payer OTHER, SELFPAY ==
[2019-04-29 16:59] LABS: Add Manual Diff / Slide Review NO; Basophils Absolute Auto 100 /uL (0-100); Basophils Percent Auto 1.1 % (0-2); Eosinophils Absolute Auto 100 /uL (0-450); Eosinophils Percent Auto 1.2 % (2-4); Hematocrit 42.8 % (36-46); Hemoglobin 14.5 g/dL (12.0-16.0); Lymphocytes Absolute Auto 2000 /uL (1100-4500); Lymphocytes Percent Auto 29.9 % (25-40); Mean Corpuscular Hemoglobin 32.1 PG (26-34); Mean Corpuscular Volume 94.5 fL (80-100); Monocytes Absolute Auto 400 /uL (0-900); Monocytes Percent Auto 5.8 % (3-14); Neutrophils Absolute Auto 4100 /uL (1500-7000); Platelet Count 320 X10^3/uL (150-400); Red Blood Cell Count 4.53 X10^6/uL (4.0-5.2); White Blood Cell Count 6.6 X10^3/uL (4.5-11.0)
[2019-04-29 17:59] LABS: Alanine Aminotransferase 16 IU/L (<35); Albumin 5.2 g/dL (3.5-5.0); Albumin Globulin Ratio 1.7 (1.0-2.8); Alkaline Phosphatase 111 U/L (38-126); Aspartate Aminotransferase 29 IU/L (14-36); BUN Creatinine Ratio 17.5 (6-22); Bilirubin Total 0.4 mg/dL (0.2-1.3); Blood Urea Nitrogen 14 mg/dL (7-17); Calcium 9.9 mg/dL (8.4-10.2); Carbon Dioxide 28 mmol/L (22-32); Chloride 104 mmol/L (98-107); Estimated Glomerular Filt Rate > 60.0 mL/min (>60); Glucose 101 mg/dL (80-110); HEMOLYSIS < 15 (0-50); Potassium 4.4 mmol/L (3.4-5.1); Sodium 142 mmol/L (137-145); Total Protein 8.2 g/dL (6.3-8.2)
[2019-04-29 18:15] LABS: Vitamin D 25 Hydroxy (D3) 29.2 ng/mL (30.0-100.0)
[2019-04-29 18:29] LABS: TSH w/ Reflex to FT4 2.05 uIU/mL (0.47-4.68)
[2019-04-29 18:48] LABS: Vitamin B12 > 1000 pg/mL (239-931)
== END ==
PROVIDERS: PCP Family Medicine; Visit Provider Family Medicine
DX: Z13.29 Encounter for screening for other suspected endocrine disorder (principal); R42 Dizziness and giddiness; E55.9 Vitamin D deficiency, unspecified
CPT/HCPCS: 36415; 80053; 82306; 82607; 84443; 85025

== ENCOUNTER 2019-05-26 05:40 | Emergency (ER) | payer OTHER, SELFPAY ==
--- NOTE | 2019-05-26 05:49 | ED.CHESTPAIN ---
HPI - Chest Pain General Chief Complaint: Chest Pain Stated Complaint: chest tightness, heart racing irregular Time Seen by Provider: 05/26/19 05:49 History of Present Illness HPI narrative: 59-year-old woman with no significant medical history presents with a month of increasing mid epigastric and lower chest pain. Is associated with increasing anxiety and a sense of tightness throughout her chest. It tends to radiate towards her back. She began having vertigo symptoms about a month ago has had evaluations with Physical therapy and ENT and is not felt to be positional vertigo. This is getting somewhat better when she saw her primary care physician who did an osteopathic vagal release with deep pressure in the epigastrium. This caused a significant amount of pain and Karen feels that it his triggered more issues including constipation, bloating, increased anxiety, loss of appetite, difficulty sleeping, weight loss because of the appetite loss, chest tightness without dyspnea or diaphoresis. She tried Ativan for a couple of days and felt that this did not help her anxiety did increase emotional lability and exacerbated her vertigo symptoms. She presents to the emergency room today because the chest tightness is gotten worse the abdominal pain continues the anxiety is significant and she has gotten very little sleep overnight. She is visibly trembling and anxious despite being in a setting with which she is quite comfortable. She is significantly hypertensive and typically has blood pressures with systolics in the 110 range. She describes no significant heartburn. Over the last couple of days she has noticed increased mild hoarseness as well as increased right ear pain and pressure. Related Data Home Medications Medication Instructions Recorded Confirmed cetirizine 10 mg PO Q DAY #0 01/25/13 04/29/19 Previous Rx's Medication Instructions Recorded valacyclovir 500 mg tablet 500 mg PO QDAY #90 tab 08/21/18 hydroxyzine HCl 25 mg tablet 25 mg PO TID PRN #30 tab 04/16/19 omeprazole 20 mg PO DAILY #30 cap 05/26/19 Allergies Allergy/AdvReac Type Severity Reaction Status Date / Time ASPIRIN Allergy Mild RINGING IN Uncoded 04/16/19 16:02 EARS Azithromycin Allergy Mild NAUSEA/VOMI Uncoded 04/16/19 16:02 TING From COLD MEDICINE PLUS Allergy Mild TUNNEL Uncoded 04/16/19 16:02 VISION LACTOSE Allergy Mild INTOLERANT Uncoded 04/16/19 16:02 Latex Allergy Mild ITCHY Uncoded 04/16/19 16:02 AMOXICILLIN Allergy Unknown Uncoded 04/16/19 16:02 Review of Systems Review of Systems Narrative: All systems reviewed and are unremarkable except as noted in HPI and below Patient History Medical History Back stiffness (Acute) BPPV (benign paroxysmal positional vertigo) (Acute) Cervical somatic dysfunction (Acute) Chronic neck pain (Acute) Cranial somatic dysfunction (Acute) Establishing care with new doctor, encounter for (Acute) Genital herpes (Chronic) Pelvic somatic dysfunction (Acute) Seasonal allergies (Chronic) Segmental and somatic dysfunction of abdomen and other regions (Acute) Segmental and somatic dysfunction of rib cage (Acute) Segmental and somatic dysfunction of sacral region (Acute) Segmental and somatic dysfunction of thoracic region (Acute) Stiff neck (Acute) Surgical History Status post appendectomy (Resolved) Status post delivery (Resolved 10/15/79) Family History Father Stroke Mother Stroke Dementia Sister Stroke Social History marital status: household members: spouse lives independently: Yes caregiver/support person: No occupational status: employed Smoking Status: Never smoker second hand exposure: No alcohol intake: current substance use type: does not use Smoking Status: Never smoker Exam Narrative Exam Narrative: General: Healthy appearing, in no acute distress but visibly anxious. Able to give a complete and coherent history. Well-nourished well-developed HEENT: Moist mucous membranes, normal sclera with reactive pupils, Neck: No JVD, supple Respiratory: Lungs are clear to auscultation, no wheezing no rales no rhonchi. Full and symmetrical air movement Cardiac: Regular rate and rhythm no murmurs no bruits Abdomen: Tender in the mid epigastrium without rebound or guarding. No hepatosplenomegaly. Good bowel tones, no flank pain Skin: Warm and dry, no rashes Neurologic: Grossly neurologically intact with no obvious asymmetries or abnormalities Extremities: No trauma, well perfused Psych: Cooperative, appropriate insight and affect Initial Vital Signs Initial Vital Signs: Vital Signs Temperature 97.2 F L 01/22/20 06:00 Pulse Rate 74 05/26/19 06:00 Respiratory Rate 18 05/26/19 06:00 Blood Pressure 167/104 H 05/26/19 06:00 Pulse Oximetry 100 05/26/19 06:00 Course Orders Ordered: ED Orders 05/26/19 EKG-12 Lead Stat 05/26/19 06:00 Complete Blood Count AUTO DIFF Stat Comprehensive Metabolic Panel Stat D Dimer Stat Lipase Stat Thyroid Stimulating Hormone Stat Troponin & CK Cardiac Panel Stat 05/26/19 06:17 XR chest 1V Stat Sodium Chloride (Normal Saline 0.9%) 1,000 mls @ 150 mls/hr IV CONT HAZEL Last Admin: 05/26/19 06:26 Dose: 150 mls/hr Documented by: BIA Discontinued Medications Al Hydrox/Mg Hydrox/Simethicone 20 ml/ Lidocaine HCl 15 ml 0 ml PO NOW ONE Stop: 05/26/19 06:18 Last Admin: 05/26/19 06:26 Dose: 35 ml Documented by: BIA Ketorolac Tromethamine (Toradol) 15 mg IV NOW ONE Stop: 05/26/19 07:13 Pantoprazole Sodium (Protonix) 40 mg IV NOW ONE Stop: 05/26/19 07:13 Vital Signs Vital signs: Vital Signs - 8 hr 05/26/19 06:00 05/26/19 06:21 05/26/19 06:30 Temperature 97.2 F L 97.2 F L Pulse Rate 74 74 67 Respiratory Rate 18 18 17 Blood Pressure 167/104 H 167/104 H Blood Pressure [Right Arm] 138/87 Pulse Oximetry 100 100 97 MDM - Chest Pain Medical Records Data Attestation: I reviewed the patient's medical records. Lab Data Attestation: I reviewed the patient's lab results. Result diagrams: 05/26/19 06:00 05/26/19 06:00 Labs: Lab Results 05/26/19 05/26/19 05/26/19 Range/Units 06:00 06:00 06:00 WBC 6.7 (4.5-11.0) X10^3/uL RBC 4.35 (4.0-5.2) X10^6/uL Hgb 14.0 (12.0-16.0) g/dL Hct 41.1 (36-46) % MCV 94.4 (80-100) fL MCH 32.3 (26-34) PG MCHC 34.2 (30-36) % RDW 13.1 (11.6-14.8) % Plt Count 277 (150-400) X10^3/uL Neut % (Auto) 66.0 (50-75) % Lymph % (Auto) 24.3 L (25-40) % [place] % (Auto) 6.8 (3-14) % Eos % (Auto) 1.7 L (2-4) % Baso % (Auto) 1.2 (0-2) % Neut # (Auto) 4400 (3875-2620) /uL Lymph # (Auto) 1600 (7503-9503) /uL [place] # (Auto) 500 (0-900) /uL Eos # (Auto) 100 (0-450) /uL Baso # (Auto) 100 (0-100) /uL D-Dimer < 200 (<230) ng/mL Sodium 142 (137-145) mmol/L Potassium 3.9 (3.4-5.1) mmol/L Chloride 106 (98-107) mmol/L Carbon Dioxide 27 (22-32) mmol/L BUN 14 (7-17) mg/dL Creatinine 0.80 (0.52-1.04) mg/dL Estimated GFR > 60.0 (>60) mL/min BUN/Creatinine Ratio 17.5 (6-22) Glucose 104 (80-110) mg/dL Calcium 9.5 (8.4-10.2) mg/dL Total Bilirubin 0.4 (0.2-1.3) mg/dL AST 26 (14-36) IU/L ALT 16 (<35) IU/L Alkaline Phosphatase 98 (38-126) U/L Total Creatine Kinase 78 (30-135) U/L CK-MB (CK-2) TNP CK-MB (CK-2) Rel Index TNP Troponin I < 0.012 (0.01-0.034) ng/mL Total Protein 7.9 (6.3-8.2) g/dL Albumin 4.7 (3.5-5.0) g/dL Globulin 3.2 (1.7-4.1) g/dL Albumin/Globulin Ratio 1.5 (1.0-2.8) Lipase 43 (23-300) U/L TSH (0.47-4.68) uIU/mL 05/26/19 Range/Units 06:00 WBC (4.5-11.0) X10^3/uL RBC (4.0-5.2) X10^6/uL Hgb (12.0-16.0) g/dL Hct (36-46) % MCV (80-100) fL MCH (26-34) PG MCHC (30-36) % RDW (11.6-14.8) % Plt Count (150-400) X10^3/uL Neut % (Auto) (50-75) % Lymph % (Auto) (25-40) % [place] % (Auto) (3-14) % Eos % (Auto) (2-4) % Baso % (Auto) (0-2) % Neut # (Auto) (7916-1639) /uL Lymph # (Auto) (4312-2166) /uL [place] # (Auto) (0-900) /uL Eos # (Auto) (0-450) /uL Baso # (Auto) (0-100) /uL D-Dimer (<230) ng/mL Sodium (137-145) mmol/L Potassium (3.4-5.1) mmol/L Chloride (98-107) mmol/L Carbon Dioxide (22-32) mmol/L BUN (7-17) mg/dL Creatinine (0.52-1.04) mg/dL Estimated GFR (>60) mL/min BUN/Creatinine Ratio (6-22) Glucose (80-110) mg/dL Calcium (8.4-10.2) mg/dL Total Bilirubin (0.2-1.3) mg/dL AST (14-36) IU/L ALT (<35) IU/L Alkaline Phosphatase (38-126) U/L Total Creatine Kinase (30-135) U/L CK-MB (CK-2) CK-MB (CK-2) Rel Index Troponin I (0.01-0.034) ng/mL Total Protein (6.3-8.2) g/dL Albumin (3.5-5.0) g/dL Globulin (1.7-4.1) g/dL Albumin/Globulin Ratio (1.0-2.8) Lipase (23-300) U/L TSH 3.03 (0.47-4.68) uIU/mL Imaging Data Chest x-ray: Attestation: I personally reviewed and interpreted this imaging study as follows: My Impression: Normal chest without evidence of pneumothorax, pulmonary consolidation, no masses, normal cardiac silhouette ECG Data Interpretation: Normal sinus rhythm at a rate of 74 Normal intervals, axis and no ST T-wave changes to suggest ischemia MDM Narrative Medical decision making narrative: 59-year-old woman with significant chest pain tightness anxiety and markedly positive review of systems. No evidence of acute coronary syndrome. Her symptoms were moderately relieved with a GI cocktail. It is absolutely conceivable that she is having acid reflux is causing some of her increased hoarseness and the tightness she sensing through chest. She also had a osteopathic vagal release maneuver that she is concerned has caused majority of the symptoms. I'm wondering that simply caused a costochondral strain that is exacerbating her anxiety and contributing to increased reflux symptoms. She has tried anxiety medications in the past and they've caused more depressive symptoms. Will place her on a proton pump inhibitor and asked her to follow-up with her primary care physician. No signs of life-threatening issues are appreciated today and she is safe for home discharge Discharge Plan Departure Patient Disposition: Home Clinical Impression: Anxiety, Costochondritis Gastritis Qualifiers: Gastritis type: unspecified gastritis Chronicity: unspecified Gastritis bleeding: without bleeding Qualified Code(s): K29.70 - Gastritis, unspecified, without bleeding Activity Restrictions/Additional Instructions: Thank you for coming in today. Your workup was actually quite reassuring. There's no evidence of thyroid dysfunction, acute coronary syndrome, pulmonary embolism, pneumonia. I'm wondering if some of your symptoms are related to gastric reflux and the development of a gastritis. I'm going to suggest that you try omeprazole 20 mg daily for the next 2 weeks to see if this influences your pain. 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 I would recommend Tylenol for this rather than nonsteroidals because nonsteroidals can exacerbate the stomach issues. Finally, each of these issues seems to be exacerbating her underlying anxiety and perseverating thoughts. It may be worth discussing these issues with your primary care provider to see if there are other alternatives to help you more effectively deal with your stress so that you are able to eat, sleep,and function more efficiently Prescriptions: New omeprazole 20 mg capsule,delayed release(DR/EC) 20 mg PO DAILY Qty: 30 RF: 0 No Action hydroxyzine HCl 25 mg tablet 25 mg PO TID PRN (Reason: anxiety) Qty: 30 RF: 2 cetirizine 10 MG tablet 10 mg PO Q DAY Qty: 0 RF: 0 valacyclovir 500 mg tablet 500 mg PO QDAY Qty: 90 RF: 3 Referrals: Tevin Retana DO [Primary Care Provider] -
[2019-05-26 06:00] VITALS: BP 167/104; PULSE 74; RESP 18; TEMP 36.2; O2SAT 100; BMI 28.2
--- NOTE | 2019-05-26 06:17 | DI.RAD.S_ITS ---
PROCEDURE: XR CHEST 1V INDICATIONS: Chest pain TECHNIQUE: One view of the chest was acquired. COMPARISON: None. FINDINGS: Surgical changes and devices: None. Lungs and pleura: Lungs are clear. No pleural effusions or pneumothorax. Mediastinum: Mediastinal contours appear normal. Heart size is normal. Bones and chest wall: No suspicious bony lesions. Overlying soft tissues appear unremarkable. IMPRESSION: No acute cardiopulmonary disease process. Dictated by: Jaylene Person MD, PhD on 05/26/2019 at 10:10 Approved by: Jaylene Person MD, PhD on 05/26/2019 at 10:10
[2019-05-26 06:21] VITALS: BP 167/104; PULSE 74; RESP 18; TEMP 36.2; O2SAT 100; BMI 28.2
[2019-05-26 06:26] LABS: Add Manual Diff / Slide Review NO; Basophils Absolute Auto 100 /uL (0-100); Basophils Percent Auto 1.2 % (0-2); Eosinophils Absolute Auto 100 /uL (0-450); Eosinophils Percent Auto 1.7 % (2-4); Hematocrit 41.1 % (36-46); Lymphocytes Absolute Auto 1600 /uL (1100-4500); Lymphocytes Percent Auto 24.3 % (25-40); Mean Corpuscular HGB Conc 34.2 % (30-36); Mean Corpuscular Hemoglobin 32.3 PG (26-34); Mean Corpuscular Volume 94.4 fL (80-100); Monocytes Absolute Auto 500 /uL (0-900); Monocytes Percent Auto 6.8 % (3-14); Neutrophils Absolute Auto 4400 /uL (1500-7000); Platelet Count 277 X10^3/uL (150-400); Red Blood Cell Count 4.35 X10^6/uL (4.0-5.2); Red Cell Distribution Width 13.1 % (11.6-14.8); White Blood Cell Count 6.7 X10^3/uL (4.5-11.0)
[2019-05-26] MEDS: SODIUM CHLORIDE 0.9% 1,000 ML 150 ML IV (06:26)
[2019-05-26] MEDS: MAG HYDROX/ALUMINUM/SIMETH SUS 20 ML, LIDOCAINE VISCOUS 2% 15 ML PO (06:26)
[2019-05-26 06:30] VITALS: BP 138/87; PULSE 67; RESP 17; O2SAT 97
[2019-05-26 06:33] LABS: Alanine Aminotransferase 16 IU/L (<35); Albumin 4.7 g/dL (3.5-5.0); Albumin Globulin Ratio 1.5 (1.0-2.8); Alkaline Phosphatase 98 U/L (38-126); Aspartate Aminotransferase 26 IU/L (14-36); BUN Creatinine Ratio 17.5 (6-22); Bilirubin Total 0.4 mg/dL (0.2-1.3); Blood Urea Nitrogen 14 mg/dL (7-17); Calcium 9.5 mg/dL (8.4-10.2); Carbon Dioxide 27 mmol/L (22-32); Chloride 106 mmol/L (98-107); Creatine Kinase 78 U/L (30-135); Estimated Glomerular Filt Rate > 60.0 mL/min (>60); Globulin 3.2 g/dL (1.7-4.1); Glucose 104 mg/dL (80-110); HEMOLYSIS 20 (0-50); Lipase 43 U/L (23-300); Potassium 3.9 mmol/L (3.4-5.1); Sodium 142 mmol/L (137-145); Total Protein 7.9 g/dL (6.3-8.2)
[2019-05-26 06:45] LABS: Troponin I < 0.012 ng/mL (0.01-0.034)
[2019-05-26 07:02] LABS: Thyroid Stimulating Hormone 3.03 uIU/mL (0.47-4.68)
[2019-05-26 07:15] LABS: D Dimer < 200 ng/mL (<230)
[2019-05-26] MEDS: KETOROLAC 60 MG/2 ML VIAL 15 MG IV (07:20)
[2019-05-26] MEDS: PANTOPRAZOLE 40 MG VIAL IV (07:21)
[2019-05-26 07:36] VITALS: BP 136/79; PULSE 65; RESP 18; O2SAT 98
== END 2019-05-26 07:38 | disposition home or self-care (01) ==
PROVIDERS: Emergency Provider Emergency Medicine; PCP Internal Medicine
DX: F41.9 Anxiety disorder, unspecified (principal); M94.0 Chondrocostal junction syndrome [Tietze]; K29.70 Gastritis, unspecified, without bleeding; R07.9 Chest pain, unspecified
CPT/HCPCS: 71045; 80053; 82550; 83690; 84443; 84484; 85025; 85379; 93005; 93010; 96374; 96375; 99284; 99285; C9113; J1885

== ENCOUNTER → 2019-05-28 09:35 | Outpatient (CLI) | payer OTHER, SELFPAY ==
--- NOTE | 2019-05-28 10:13 | DI.CT.S_ITS ---
PROCEDURE: CT CHEST W CON INDICATIONS: ATYPICAL CHEST PAIN TECHNIQUE: After the administration of intravenous contrast, 5 mm thick sections acquired from the pulmonary apices to the posterior costophrenic angles. 1 mm axial lung, 5 mm thick coronal and sagittal reformats and 7 mm axial MIP were acquired. For radiation dose reduction, the following was used: automated exposure control, adjustment of mA and/or kV according to patient size. COMPARISON: None. FINDINGS: Image quality: Excellent. Lungs and pleura: No acute consolidation. Medial right lower lobe atelectasis/scarring. No pleural effusions or pneumothorax. Central and peripheral airways are patent and normal in caliber. Mediastinum: Heart size is normal. No pericardial effusion. No mediastinal or hilar adenopathy by size criteria. Thoracic aorta and central pulmonary arteries are normal in size. Esophagus is normal in caliber. No hiatal hernia. Bones and chest wall: No suspicious bony lesions. No vertebral body compression fractures. No axillary or supraclavicular adenopathy by size criteria. Thyroid gland negative. Abdomen: Visualized upper abdominal solid organs appear normal. Upper abdominal bowel loops are normal in caliber. IMPRESSION: Negative examination. No acute consolidation. Dictated by: Fuentes Gloria M.D. on 05/28/2019 at 11:25 Approved by: Fuentes Gloria M.D. on 05/28/2019 at 11:28
== END ==
PROVIDERS: PCP Internal Medicine; Visit Provider Internal Medicine
DX: R07.89 Other chest pain (principal)
CPT/HCPCS: 71260; Q9967

== ENCOUNTER → 2019-07-20 11:54 | Outpatient (CLI) | payer OTHER, SELFPAY ==
[2019-07-20 13:16] LABS: Add Manual Diff / Slide Review NO; Basophils Absolute Auto 100 /uL (0-100); Eosinophils Absolute Auto 0 /uL (0-450); Eosinophils Percent Auto 0.5 % (2-4); Hematocrit 44.6 % (36-46); Hemoglobin 15.1 g/dL (12.0-16.0); Lymphocytes Absolute Auto 2000 /uL (1100-4500); Lymphocytes Percent Auto 29.4 % (25-40); Mean Corpuscular HGB Conc 33.8 % (30-36); Mean Corpuscular Hemoglobin 32.2 PG (26-34); Mean Corpuscular Volume 95.2 fL (80-100); Monocytes Absolute Auto 400 /uL (0-900); Monocytes Percent Auto 5.3 % (3-14); Neutrophils Absolute Auto 4400 /uL (1500-7000); Neutrophils Percent Auto 63.8 % (50-75); Platelet Count 335 X10^3/uL (150-400); Red Blood Cell Count 4.68 X10^6/uL (4.0-5.2); Red Cell Distribution Width 13.3 % (11.6-14.8); White Blood Cell Count 6.9 X10^3/uL (4.5-11.0)
[2019-07-20 13:31] LABS: Erythrocyte Sedimentation Rate 2 MM/HR (0-20)
[2019-07-20 15:25] LABS: Alanine Aminotransferase 18 IU/L (<35); Albumin 5.2 g/dL (3.5-5.0); Albumin Globulin Ratio 1.6 (1.0-2.8); Alkaline Phosphatase 125 U/L (38-126); Aspartate Aminotransferase 29 IU/L (14-36); BUN Creatinine Ratio 13.6 (6-22); Bilirubin Total 0.5 mg/dL (0.2-1.3); Blood Urea Nitrogen 11 mg/dL (7-17); Calcium 10.2 mg/dL (8.4-10.2); Carbon Dioxide 27 mmol/L (22-32); Chloride 102 mmol/L (98-107); Estimated Glomerular Filt Rate > 60.0 mL/min (>60); Globulin 3.3 g/dL (1.7-4.1); Glucose 99 mg/dL (80-110); HEMOLYSIS < 15 (0-50); Potassium 4.5 mmol/L (3.4-5.1); Sodium 139 mmol/L (137-145); Total Protein 8.5 g/dL (6.3-8.2)
[2019-07-20 15:37] LABS: C-Reactive Protein Quant < 0.5 mg/dL (<1.0)
[2019-07-22 13:02] LABS: ANA Screen, IFA Negative (.)
[2019-07-22 17:37] LABS: CCP Antibodies IgG/IgA 7 units (0-19)
== END ==
PROVIDERS: PCP Physician Assistant; Referring Provider Physician Assistant; Visit Provider Physician Assistant
DX: F41.9 Anxiety disorder, unspecified (principal); D35.00 Benign neoplasm of unspecified adrenal gland; M79.10 Myalgia, unspecified site; M25.50 Pain in unspecified joint; R00.2 Palpitations; M79.2 Neuralgia and neuritis, unspecified
CPT/HCPCS: 36415; 80053; 85025; 85651; 86038; 86140; 86200

== ENCOUNTER → 2019-07-21 15:32 | Outpatient (ROUT) | payer OTHER, SELFPAY ==
[2019-07-23 15:13] LABS: Cortisol Fr ug/24hr urine 26 ug/24 hr (6-42); Cortisol, Free, Urine 18 ug/L (Undefined)
== END ==
PROVIDERS: PCP Physician Assistant; Visit Provider Physician Assistant
DX: F41.9 Anxiety disorder, unspecified (principal); D35.00 Benign neoplasm of unspecified adrenal gland; M79.10 Myalgia, unspecified site; M25.50 Pain in unspecified joint; R00.2 Palpitations; M79.2 Neuralgia and neuritis, unspecified
CPT/HCPCS: 82530

== ENCOUNTER 2019-07-25 04:11 | Emergency (ER) | payer OTHER, SELFPAY ==
[2019-07-25 04:26] VITALS: BP 155/90; PULSE 89; RESP 16; TEMP 36.3; O2SAT 99; BMI 27.4
--- NOTE | 2019-07-25 04:31 | ED.ABDPAIN ---
HPI - Abdominal Pain <Alfredo Villanueva MD - Last Filed: 07/25/19 19:13> General Stated Complaint: upper abd pain/no appetite/x 4 days Time Seen by Provider: 07/25/19 04:31 Source: patient Mode of arrival: Family Vehicle Limitations: no limitations History of Present Illness HPI narrative: HPI: The patient is a 59-year-old female who complained of diffuse upper abdominal pain with the pain primarily being located in the epigastrium and right upper quadrant. She describes her abdominal pain as a tight pain. The pain has gotten worse over the last few days prior to admission. She has had no relief from antacids or Pepcid. She complains that it is a burning discomfort in the center of her chest. And points up and down in the area of her esophagus. She denies any water brash or sour taste or burning in her mouth or posterior pharynx. She has had no jaw pain neck pain shoulder pain or arm pain. She states that she was seen by Dr. Suarez who diagnosed her to have GERD, gastritis that she had peptic ulcer disease. She she has never been evaluated for Manisha injure Ortiz syndrome. She has had an appendectomy performed but no cholecystectomy. and costal chondritis. The pain has suddenly gotten worse. She denies ever being told that she has had peptic ulcer disease or ZE syndrome. She has had her appendix removed but not her gallbladder. She denies a myocardial infarction rule hypertension diabetes mellitus or pancreatitis. She does not smoke cigarettes drink alcohol or use marijuana. She denies headache but has had nasal drainage sinus drainage in minimal sore throat. She has had mild shortness of breath a tickle cough and chest pain. She has been nauseous but has had no vomiting or diarrhea. She denies any urinary symptoms. She informed 1 of the nurses that she had been on at a [place] on a daily basis for at least 2 months and then she just stopped it cold turkey on July 05 and her symptoms of anxiety returned exponentially worse. Related Data Home Medications Medication Instructions Recorded Confirmed cetirizine 10 mg PO Q DAY #0 01/25/13 04/29/19 Previous Rx's Medication Instructions Recorded valacyclovir 500 mg tablet 500 mg PO QDAY #90 tab 08/21/18 hydroxyzine HCl 25 mg tablet 25 mg PO TID PRN #30 tab 12/13/19 omeprazole 20 mg PO DAILY #30 cap 05/26/19 Allergies Allergy/AdvReac Type Severity Reaction Status Date / Time ASPIRIN Allergy Mild RINGING IN Uncoded 04/16/19 16:02 EARS Azithromycin Allergy Mild NAUSEA/VOMI Uncoded 04/16/19 16:02 TING From COLD MEDICINE PLUS Allergy Mild TUNNEL Uncoded 04/16/19 16:02 VISION LACTOSE Allergy Mild INTOLERANT Uncoded 04/16/19 16:02 Latex Allergy Mild ITCHY Uncoded 04/16/19 16:02 AMOXICILLIN Allergy Unknown Uncoded 04/16/19 16:02 Review of Systems <Alfredo Villanueva MD - Last Filed: 07/25/19 19:13> Review of Systems Narrative: Her review of systems were all negative except for those mentioned in the history of present illness. Patient History <Alfredo Villanueva MD - Last Filed: 07/25/19 19:13> Medical History Back stiffness (Acute) BPPV (benign paroxysmal positional vertigo) (Acute) Cervical somatic dysfunction (Acute) Chronic neck pain (Acute) Cranial somatic dysfunction (Acute) Establishing care with new doctor, encounter for (Acute) Genital herpes (Chronic) Pelvic somatic dysfunction (Acute) Seasonal allergies (Chronic) Segmental and somatic dysfunction of abdomen and other regions (Acute) Segmental and somatic dysfunction of rib cage (Acute) Segmental and somatic dysfunction of sacral region (Acute) Segmental and somatic dysfunction of thoracic region (Acute) Stiff neck (Acute) Surgical History Status post appendectomy (Resolved) Status post delivery (Resolved 10/15/79) Family History Father Stroke Mother Stroke Dementia Sister Stroke Social History marital status: household members: spouse lives independently: Yes caregiver/support person: No occupational status: employed Smoking Status: Never smoker second hand exposure: No alcohol intake: current substance use type: does not use Smoking Status: Never smoker alcohol intake frequency: 0-2 drinks per day Substance Use Type: does not use Exam <Alfredo Villanueva MD - Last Filed: 07/25/19 19:13> Narrative Exam Narrative: PHYSICAL EXAM: CONSTITUTIONAL: Awake, Alert, Oriented, Coherent, Cooperative does not appear to be in any acute distress. She does not not appear toxic or ill. During the exam and encounters the patient seems to be smiling almost inappropriately for the amount of distress she describes. HEAD: AT/NC EENT: PERRL, FROM of eyes, no discharge, . No epistaxis or nasal drainage Oral mucosa is moist and pink, posterior pharynx is without erythema or exudate. NECK: Supple, no obvious JVD, Trachea is midline without stridor, no palpable LN or masses. The patient is tender without any palpable mass in the supraclavicular and manubrial notches. SPINE: No gross deformity, no palpable tenderness of the cervical, thoracic, lumbar or sacral spine. No CVA tenderness. THORAX: No deformity, retractions. There was no tenderness to anterior-posterior compression. However palpation of the manubrial sternal notch right and left costal sternal margins and safety sternum were tender to palpation and mimicked her pain and discomfort. LUNGS: Clear with symmetrical breath sounds without respiratory distress HEART: Normal heart tones, regular rhythm and rate without murmur. ABDOMEN: Soft and tender in the epigastrium right upper quadrant with minimal to mild guarding no rebound no rigidity no palpable organomegaly. EXTREMITIES: No edema, cyanosis, deformity or tenderness. SKIN: No rash, bruising, petechiae or purpura. NEURO: Awake, alert, oriented, conversive, cranial nerves II-XII are symmetrical, moves all 4 extremities and is ambulatory Initial Vital Signs Initial Vital Signs: Vital Signs Temperature 97.3 F L 07/25/19 04:26 Pulse Rate 89 07/25/19 04:26 Respiratory Rate 16 07/25/19 04:26 Blood Pressure 155/90 H 07/25/19 04:26 Pulse Oximetry 99 07/25/19 04:26 <Emmett Walker DO - Last Filed: 07/25/19 10:40> Initial Vital Signs Initial Vital Signs: Vital Signs Temperature 97.3 F L 07/25/19 04:26 Pulse Rate 89 07/25/19 04:26 Respiratory Rate 16 07/25/19 04:26 Blood Pressure 155/90 H 07/25/19 04:26 Pulse Oximetry 99 07/25/19 04:26 Course <Alfredo Villanueva MD - Last Filed: 07/25/19 19:13> Course Course Narrative: 0544 the patient's chest x-ray per the radiologist revealed minimal subsegmental atelectasis no other acute process. There was no evidence of consolidation or effusion on chest x-ray. The patient's CT scan of the abdomen and pelvis with contrast per the radiologist's revealed a mildly hypodense a cup to wall thickening at the gastroesophageal junction favoring inflammatory processes from a gastroesophageal reflex. There is no surrounding fat induration or fluid no other acute finding within the abdomen or pelvis. There was no CT evidence of the patient having any acute cholecystitis or stones or acute pancreatitis. Patient's laboratory chemistries revealed white blood count is 6.9 hemoglobin 14.6 hematocrit 43.6. Her complete metabolic panel is within normal limits. Liver functions were within normal limits. Troponin is less than 0.012, lipase is normal at 60. 0600 I went in to see of the patient was doing and to inform her that her CT scan of the abdomen did not reveal any gallstones cholecystitis pancreatitis or any other pathology other than inflammatory changes around the gastroesophageal junction. I informed her that her chest x-ray was completely normal and that her chemistries were all normal including her troponin. We will perform a 2 hour troponin on her. She stated that the last time the Toradol helped her pain and discomfort. The nurse informed me that she just administered the medicine prior to my going in to evaluate and talked to the patient. The patient was smiling when she informed me that nothing was working. This creates a quandary since the patient's radiological studies and laboratory chemistries are all normal. Clinically the patient does not appear to be in any acute distress but is anxious. The patient refused the Ativan that I had ordered for her acute anxiety. She informed the nurse that she recently stopped her Ativan on July [address] [facility] after taking it continuously on a daily basis for the previous 2 months. The patient realized after she discontinued taking the medication she became more anxious. I am questioning whether not the patient has a state of hyper acid secretionlike Aurelio Ortiz Syndrome. I ordered an additional 40 cc of of Mylanta to neutralize a large volume of acid. Solu-Medrol was ordered to help with the inflammatory causes of costochondritis. Reglan 10 mg IV and Benadryl 25 mg was ordered to help relieve a possible gastroesophageal spasm. I believe the patient has an anxiety component which may be relieved by the Benadryl and prevent a tardive a response to the Reglan.. Orders Ordered: Discontinued Medications Al Hydrox/Mg Hydrox/Simethicone (Maalox Plus) 45 ml PO NOW ONE Stop: 07/25/19 06:17 Last Admin: 07/25/19 06:45 Dose: 45 ml Documented by: RIGOBERTO Al Hydrox/Mg Hydrox/Simethicone 40 ml/ Lidocaine HCl 15 ml 0 ml PO NOW ONE Stop: 07/25/19 04:49 Last Admin: 07/25/19 05:35 Dose: 55 ml Documented by: RIGOBERTO Diphenhydramine HCl (Benadryl) 25 mg IV NOW ONE Stop: 07/25/19 06:19 Last Admin: 07/25/19 06:46 Dose: 25 mg Documented by: RIGOBERTO Sodium Chloride (Normal Saline 0.9%) 1,000 mls @ 150 mls/hr IV CONT HAZEL Last Infusion: 07/25/19 10:56 Dose: 0 mls/hr Documented by: Admin: 07/25/19 05:28 Dose: 150 mls/hr Documented by: RIGOBERTO Ketorolac Tromethamine (Toradol) 30 mg IV NOW ONE Stop: 07/25/19 04:49 Last Admin: 07/25/19 05:34 Dose: 30 mg Documented by: RIGOBERTO Lorazepam (Ativan) 1 mg IV NOW ONE Stop: 07/25/19 04:54 Last Admin: 07/25/19 10:54 Dose: Not Given Documented by: YAKOV Methylprednisolone (Solu-Medrol 125 Mg Vial) 125 mg IV NOW ONE Stop: 07/25/19 06:19 Last Admin: 07/25/19 06:46 Dose: 125 mg Documented by: RIGOBERTO Metoclopramide HCl (Reglan) 10 mg IV NOW ONE Stop: 07/25/19 06:19 Last Admin: 07/25/19 06:46 Dose: 10 mg Documented by: RIGOBERTO Ondansetron HCl (Zofran) 4 mg IV NOW ONE Stop: 07/25/19 04:49 Last Admin: 07/25/19 05:34 Dose: 4 mg Documented by: RIGOBERTO Pantoprazole Sodium (Protonix) 40 mg IV NOW ONE Stop: 07/25/19 04:49 Last Admin: 07/25/19 05:34 Dose: 40 mg Documented by: RIGOBERTO Phenobarbital (Phenobarbital) 130 mg IV NOW ONE Stop: 07/25/19 09:07 Last Admin: 07/25/19 09:41 Dose: 130 mg Documented by: YAKOV Vital Signs Vital signs: Vital Signs - 8 hr 07/25/19 04:26 07/25/19 07:10 07/25/19 07:30 Temperature 97.3 F L Pulse Rate 89 78 75 Respiratory Rate 16 32 H 17 Blood Pressure 155/90 H Blood Pressure [Left Arm] 138/74 138/74 Pulse Oximetry 99 99 96 07/25/19 08:53 07/25/19 09:52 07/25/19 10:00 Temperature Pulse Rate 78 63 61 Respiratory Rate 18 18 19 Blood Pressure Blood Pressure [Left Arm] 138/74 114/71 114/67 Pulse Oximetry 96 <Emmett Walker, DO - Last Filed: 07/25/19 10:40> Course Course Narrative: Patient was received in sign-out from Dr. Villanueva. I have performed an independent history and physical exam. Patient is feeling better. I have treated her for benzodiazepine withdrawal. She has had her questions answered to her apparent satisfaction and understands return precautions as evidenced by her ability to recite them back. Orders Ordered: Discontinued Medications Al Hydrox/Mg Hydrox/Simethicone (Maalox Plus) 45 ml PO NOW ONE Stop: 07/25/19 06:17 Last Admin: 07/25/19 06:45 Dose: 45 ml Documented by: RIGOBERTO Al Hydrox/Mg Hydrox/Simethicone 40 ml/ Lidocaine HCl 15 ml 0 ml PO NOW ONE Stop: 07/25/19 04:49 Last Admin: 07/25/19 05:35 Dose: 55 ml Documented by: RIGOBERTO Diphenhydramine HCl (Benadryl) 25 mg IV NOW ONE Stop: 07/25/19 06:19 Last Admin: 07/25/19 06:46 Dose: 25 mg Documented by: RIGOBERTO Sodium Chloride (Normal Saline 0.9%) 1,000 mls @ 150 mls/hr IV CONT HAZEL Last Infusion: 07/25/19 10:56 Dose: 0 mls/hr Documented by: Admin: 07/25/19 05:28 Dose: 150 mls/hr Documented by: RIGOBERTO Ketorolac Tromethamine (Toradol) 30 mg IV NOW ONE Stop: 07/25/19 04:49 Last Admin: 07/25/19 05:34 Dose: 30 mg Documented by: RIGOBERTO Lorazepam (Ativan) 1 mg IV NOW ONE Stop: 07/25/19 04:54 Last Admin: 07/25/19 10:54 Dose: Not Given Documented by: YAKOV Methylprednisolone (Solu-Medrol 125 Mg Vial) 125 mg IV NOW ONE Stop: 07/25/19 06:19 Last Admin: 07/25/19 06:46 Dose: 125 mg Documented by: RIGOBERTO Metoclopramide HCl (Reglan) 10 mg IV NOW ONE Stop: 07/25/19 06:19 Last Admin: 07/25/19 06:46 Dose: 10 mg Documented by: RIGOBERTO Ondansetron HCl (Zofran) 4 mg IV NOW ONE Stop: 07/25/19 04:49 Last Admin: 07/25/19 05:34 Dose: 4 mg Documented by: RIGOBERTO Pantoprazole Sodium (Protonix) 40 mg IV NOW ONE Stop: 07/25/19 04:49 Last Admin: 07/25/19 05:34 Dose: 40 mg Documented by: RIGOBERTO Phenobarbital (Phenobarbital) 130 mg IV NOW ONE Stop: 07/25/19 09:07 Last Admin: 07/25/19 09:41 Dose: 130 mg Documented by: YAKOV Vital Signs Vital signs: Vital Signs - 8 hr 07/25/19 04:26 07/25/19 07:10 07/25/19 07:30 Temperature 97.3 F L Pulse Rate 89 78 75 Respiratory Rate 16 32 H 17 Blood Pressure 155/90 H Blood Pressure [Left Arm] 138/74 138/74 Pulse Oximetry 99 99 96 07/25/19 08:53 07/25/19 09:52 07/25/19 10:00 Temperature Pulse Rate 78 63 61 Respiratory Rate 18 18 19 Blood Pressure Blood Pressure [Left Arm] 138/74 114/71 114/67 Pulse Oximetry 96 MDM - Abdominal Pain <Alfredo Villanueva MD - Last Filed: 07/25/19 19:13> Medical Records Attestation: I reviewed the patient's medical records. Lab Data Result diagrams: 07/25/19 04:37 07/25/19 04:37 Labs: Lab Results 07/25/19 07/25/19 07/25/19 Range/Units 04:37 04:37 07:20 WBC 6.9 (4.5-11.0) X10^3/uL RBC 4.56 (4.0-5.2) X10^6/uL Hgb 14.6 (12.0-16.0) g/dL Hct 43.6 (36-46) % MCV 95.5 (80-100) fL MCH 32.0 (26-34) PG MCHC 33.5 (30-36) % RDW 13.4 (11.6-14.8) % Plt Count 291 (150-400) X10^3/uL Neut % (Auto) 65.4 (50-75) % Lymph % (Auto) 26.6 (25-40) % Mcdowell % (Auto) 6.1 (3-14) % Eos % (Auto) 1.0 L (2-4) % Baso % (Auto) 0.9 (0-2) % Neut # (Auto) 4500 (3953-8460) /uL Lymph # (Auto) 1800 (6598-0839) /uL Mcdowell # (Auto) 400 (0-900) /uL Eos # (Auto) 100 (0-450) /uL Baso # (Auto) 100 (0-100) /uL Sodium 139 (137-145) mmol/L Potassium 4.0 (3.4-5.1) mmol/L Chloride 103 (98-107) mmol/L Carbon Dioxide 26 (22-32) mmol/L BUN 13 (7-17) mg/dL Creatinine 0.76 (0.52-1.04) mg/dL Estimated GFR > 60.0 (>60) mL/min BUN/Creatinine Ratio 17.1 (6-22) Glucose 104 (80-110) mg/dL Calcium 9.8 (8.4-10.2) mg/dL Total Bilirubin 0.6 (0.2-1.3) mg/dL AST 30 (14-36) IU/L ALT 17 (<35) IU/L Alkaline Phosphatase 110 (38-126) U/L Total Creatine Kinase 65 (30-135) U/L Troponin I < 0.012 < 0.012 (0.01-0.034) ng/mL Total Protein 8.5 H (6.3-8.2) g/dL Albumin 4.8 (3.5-5.0) g/dL Globulin 3.7 (1.7-4.1) g/dL Albumin/Globulin Ratio 1.3 (1.0-2.8) Lipase 60 (23-300) U/L ECG Data Attestation: I personally reviewed and interpreted this ECG as follows: Interpretation: The patient's EKG obtained on July 24 at 04:2 3:23 a.m. reveals a sinus rhythm with a shortened p.r. interval of 112 milliseconds. QRS is 98 milliseconds duration and QTC is normal at 414 milliseconds. Lincoln is normal. The patient has small R-wave in lead V1 but has an inverted T-wave. The T-wave in II 3 lead is flattened. There are no other acute diagnostic ST or T-wave changes on her EKG. <Emmett Walker, DO - Last Filed: 07/25/19 10:40> Lab Data Labs: Lab Results 07/25/19 07/25/19 07/25/19 Range/Units 04:37 04:37 07:20 WBC 6.9 (4.5-11.0) X10^3/uL RBC 4.56 (4.0-5.2) X10^6/uL Hgb 14.6 (12.0-16.0) g/dL Hct 43.6 (36-46) % MCV 95.5 (80-100) fL MCH 32.0 (26-34) PG MCHC 33.5 (30-36) % RDW 13.4 (11.6-14.8) % Plt Count 291 (150-400) X10^3/uL Neut % (Auto) 65.4 (50-75) % Lymph % (Auto) 26.6 (25-40) % Mcdowell % (Auto) 6.1 (3-14) % Eos % (Auto) 1.0 L (2-4) % Baso % (Auto) 0.9 (0-2) % Neut # (Auto) 4500 (9883-7328) /uL Lymph # (Auto) 1800 (7916-1570) /uL Mcdowell # (Auto) 400 (0-900) /uL Eos # (Auto) 100 (0-450) /uL Baso # (Auto) 100 (0-100) /uL Sodium 139 (137-145) mmol/L Potassium 4.0 (3.4-5.1) mmol/L Chloride 103 (98-107) mmol/L Carbon Dioxide 26 (22-32) mmol/L BUN 13 (7-17) mg/dL Creatinine 0.76 (0.52-1.04) mg/dL Estimated GFR > 60.0 (>60) mL/min BUN/Creatinine Ratio 17.1 (6-22) Glucose 104 (80-110) mg/dL Calcium 9.8 (8.4-10.2) mg/dL Total Bilirubin 0.6 (0.2-1.3) mg/dL AST 30 (14-36) IU/L ALT 17 (<35) IU/L Alkaline Phosphatase 110 (38-126) U/L Total Creatine Kinase 65 (30-135) U/L Troponin I < 0.012 < 0.012 (0.01-0.034) ng/mL Total Protein 8.5 H (6.3-8.2) g/dL Albumin 4.8 (3.5-5.0) g/dL Globulin 3.7 (1.7-4.1) g/dL Albumin/Globulin Ratio 1.3 (1.0-2.8) Lipase 60 (23-300) U/L Discharge Plan Departure Patient Disposition: Home Clinical Impression: Abdominal pain Qualifiers: Abdominal location: epigastric Qualified Code(s): R10.13 - Epigastric pain Benzodiazepine withdrawal Qualifiers: Complication of substance-induced condition: uncomplicated Qualified Code(s): F13.230 - Sedative, hypnotic or anxiolytic dependence with withdrawal, uncomplicated Discharge Date/Time: 07/25/19 10:54 Activity Restrictions/Additional Instructions: *You have been diagnosed with [epigastric pain, likely gastritis or esophagitis as well as benzodiazepine withdrawal] *What to do: *Take medications as directed *Follow up with your primary care provider in 2-3 days, call for an appointment. Let them know you were seen in the Emergency Department and that we ask that you be seen in follow up *Return to ER if you should have any new, worsening or concerning symptoms Prescriptions: No Action hydroxyzine HCl 25 mg tablet 25 mg PO TID PRN (Reason: anxiety) Qty: 30 RF: 2 cetirizine 10 MG tablet 10 mg PO Q DAY Qty: 0 RF: 0 valacyclovir 500 mg tablet 500 mg PO QDAY Qty: 90 RF: 3 omeprazole 20 mg capsule,delayed release(DR/EC) 20 mg PO DAILY Qty: 30 RF: 0 Referrals: Priscilla Morris PA-C [Primary Care Provider] - ED Sign-out <Alfredo Villanueva MD - Last Filed: 07/25/19 19:13> Cosign ED Attending Velasquez Attestation: I was immediately available in the department for consultation. This documentation has been reviewed and I agree with assessment and plan. Supervised by Alfredo Villanueva MD
--- NOTE | 2019-07-25 04:48 | DI.CT.S_ITS ---
PROCEDURE: CT ABDOMEN PELVIS W CON INDICATIONS: upper abdominal pain TECHNIQUE: After the administration of oral and intravenous contrast, 5 mm thick sections acquired from the diaphragms to the symphysis. 5 mm thick coronal and sagittal reformats were performed. For radiation dose reduction, the following was used: automated exposure control, adjustment of mA and/or kV according to patient size. COMPARISON: [facility], CR, XR CHEST 2V, 07/25/2019, 4:50. FINDINGS: Image quality: Diagnostic. ABDOMEN: Lung bases: Lung bases are clear. Heart size is normal. Solid organs: Liver is normal in size and enhancement. Gallbladder is not enlarged radical be characterized on CT. Biliary system is non-dilated. Pancreas enhances normally. Spleen is normal in size and enhancement. No adrenal nodules. Kidneys are normal in size and enhancement, without hydronephrosis. Peritoneum and bowel: Stomach, small bowel, and colon loops are normal in caliber and wall thickness. No free fluid or air. No air-filled distended small bowel loops are evident. Moderate amount of stool seen within the colon. The appendix is not clearly evident. Nodes and vessels: No retroperitoneal or mesenteric adenopathy. Aorta and inferior vena cava are normal in caliber. Bones: No acute fracture or suspicious osseous lesion is evident. PELVIS: Genitourinary: Bladder wall thickness is normal. The uterus and ovaries are not adequately evaluated. Miscellaneous: No inguinal hernias or adenopathy. No free fluid or loculated fluid collection is identified. There is no free air. Bones: No suspicious bony lesions. No acute pelvic fractures are identified. IMPRESSION: 1. No acute abnormality is appreciated within the abdomen or pelvis. 2. Possible constipation. No bowel obstruction. Dictated by: Chuy Sarah M.D. on 07/25/2019 at 9:27 Approved by: Chuy Sarah M.D. on 07/25/2019 at 9:30
--- NOTE | 2019-07-25 04:48 | DI.RAD.S_ITS ---
PROCEDURE: XR CHEST 2V INDICATIONS: atypical chest pain TECHNIQUE: 2 views of the chest were acquired. COMPARISON: [facility], CR, XR CHEST 1V, 05/26/2019, 6:28. FINDINGS: Surgical changes and devices: None. Lungs and pleura: Lungs are clear. No pleural effusions or pneumothorax. Mediastinum: Mediastinal contours are normal. Heart size is normal. Bones and chest wall: No suspicious bony abnormalities. Soft tissues appear unremarkable. IMPRESSION: No acute cardiopulmonary process is evident. Dictated by: Chuy Sarah M.D. on 07/25/2019 at 7:42 Approved by: Chuy Sarah M.D. on 07/25/2019 at 7:43
[2019-07-25 05:09] LABS: Add Manual Diff / Slide Review NO; Basophils Absolute Auto 100 /uL (0-100); Basophils Percent Auto 0.9 % (0-2); Eosinophils Absolute Auto 100 /uL (0-450); Hematocrit 43.6 % (36-46); Hemoglobin 14.6 g/dL (12.0-16.0); Lymphocytes Absolute Auto 1800 /uL (1100-4500); Lymphocytes Percent Auto 26.6 % (25-40); Mean Corpuscular HGB Conc 33.5 % (30-36); Mean Corpuscular Volume 95.5 fL (80-100); Monocytes Absolute Auto 400 /uL (0-900); Monocytes Percent Auto 6.1 % (3-14); Neutrophils Absolute Auto 4500 /uL (1500-7000); Neutrophils Percent Auto 65.4 % (50-75); Platelet Count 291 X10^3/uL (150-400); Red Blood Cell Count 4.56 X10^6/uL (4.0-5.2); Red Cell Distribution Width 13.4 % (11.6-14.8); White Blood Cell Count 6.9 X10^3/uL (4.5-11.0)
[2019-07-25 05:13] LABS: Alanine Aminotransferase 17 IU/L (<35); Albumin 4.8 g/dL (3.5-5.0); Albumin Globulin Ratio 1.3 (1.0-2.8); Alkaline Phosphatase 110 U/L (38-126); Aspartate Aminotransferase 30 IU/L (14-36); BUN Creatinine Ratio 17.1 (6-22); Bilirubin Total 0.6 mg/dL (0.2-1.3); Blood Urea Nitrogen 13 mg/dL (7-17); Calcium 9.8 mg/dL (8.4-10.2); Carbon Dioxide 26 mmol/L (22-32); Chloride 103 mmol/L (98-107); Creatine Kinase 65 U/L (30-135); Estimated Glomerular Filt Rate > 60.0 mL/min (>60); Globulin 3.7 g/dL (1.7-4.1); Glucose 104 mg/dL (80-110); HEMOLYSIS 38 (0-50); Lipase 60 U/L (23-300); Sodium 139 mmol/L (137-145); Total Protein 8.5 g/dL (6.3-8.2)
[2019-07-25 05:25] LABS: Troponin I < 0.012 ng/mL (0.01-0.034)
[2019-07-25] MEDS: SODIUM CHLORIDE 0.9% 1,000 ML 150 ML IV (05:28)
[2019-07-25] MEDS: ONDANSETRON 4 MG/2 ML INJ IV (05:34)
[2019-07-25] MEDS: KETOROLAC 60 MG/2 ML VIAL 30 MG IV (05:34)
[2019-07-25] MEDS: PANTOPRAZOLE 40 MG VIAL IV (05:34)
[2019-07-25] MEDS: MAG HYDROX/ALUMINUM/SIMETH SUS 40 ML, LIDOCAINE VISCOUS 2% 15 ML PO (05:35)
[2019-07-25] MEDS: MAG HYDROX/ALUM/SIMETH 30 ML UDC 45 ML PO (06:45)
[2019-07-25] MEDS: methylPREDNISolone 125 MG/2 ML VIAL IV (06:46)
[2019-07-25] MEDS: METOCLOPRAMIDE 10 MG/2 ML INJ IV (06:46)
[2019-07-25] MEDS: diphenhydrAMINE 50 MG/ML VIAL 25 MG IV (06:46)
[2019-07-25 07:10] VITALS: BP 138/74; PULSE 78; RESP 32; O2SAT 99
[2019-07-25 07:30] VITALS: BP 138/74; PULSE 75; RESP 17; O2SAT 96
[2019-07-25 07:53] LABS: Troponin I < 0.012 ng/mL (0.01-0.034)
[2019-07-25 08:53] VITALS: BP 138/74; PULSE 78; RESP 18
[2019-07-25] MEDS: PHENobarbital 65 MG/ML VIAL 130 MG IV (09:41)
[2019-07-25 09:52] VITALS: BP 114/71; PULSE 63; RESP 18
[2019-07-25 10:00] VITALS: BP 114/67; PULSE 61; RESP 19; O2SAT 96
--- NOTE | 2019-07-25 10:36 | PC.NURSE ---
with steady gait.
== END 2019-07-25 10:54 | disposition home or self-care (01) ==
PROVIDERS: Emergency Medicine; Emergency Provider Emergency Medicine; PCP Physician Assistant
DX: R10.13 Epigastric pain (principal); F13.230 Sedative, hypnotic or anxiolytic dependence with withdrawal, uncomplicated; K21.9 Gastro-esophageal reflux disease without esophagitis
CPT/HCPCS: 36415; 71046; 74177; 80053; 82550; 83690; 84484; 85025; 93005; 96361; 96374; 96375; 99285; C9113; J1200; J1885; J2405; J2560; J2765; J2930; Q9967

== ENCOUNTER 2019-09-25 15:04 | Emergency (ER) | payer OTHER, SELFPAY ==
[2019-09-25 15:36] VITALS: BP 178/96; PULSE 105; RESP 22; TEMP 36.5; O2SAT 97; BMI 25.0
--- NOTE | 2019-09-25 15:48 | PC.NURSE ---
Patient reports having a wonderful and son and a lot of time left on this earth. But states she can't go on living like this.
[2019-09-25 16:18] LABS: Add Manual Diff / Slide Review NO; Basophils Absolute Auto 100 /uL (0-100); Basophils Percent Auto 0.9 % (0-2); Eosinophils Absolute Auto 100 /uL (0-450); Eosinophils Percent Auto 0.7 % (2-4); Hematocrit 40.6 % (36-46); Hemoglobin 14.2 g/dL (12.0-16.0); Lymphocytes Absolute Auto 2000 /uL (1100-4500); Lymphocytes Percent Auto 26.7 % (25-40); Mean Corpuscular Hemoglobin 33.4 PG (26-34); Mean Corpuscular Volume 95.4 fL (80-100); Monocytes Absolute Auto 400 /uL (0-900); Monocytes Percent Auto 5.8 % (3-14); Neutrophils Absolute Auto 4900 /uL (1500-7000); Neutrophils Percent Auto 65.9 % (50-75); Platelet Count 283 X10^3/uL (150-400); Red Blood Cell Count 4.26 X10^6/uL (4.0-5.2); Red Cell Distribution Width 13.4 % (11.6-14.8); White Blood Cell Count 7.4 X10^3/uL (4.5-11.0)
[2019-09-25 16:27] LABS: Acetaminophen < 10 ug/mL (10-30); Alanine Aminotransferase 18 IU/L (<35); Albumin 4.7 g/dL (3.5-5.0); Albumin Globulin Ratio 1.4 (1.0-2.8); Alkaline Phosphatase 83 U/L (38-126); Aspartate Aminotransferase 27 IU/L (14-36); BUN Creatinine Ratio 20.3 (6-22); Bilirubin Total 0.6 mg/dL (0.2-1.3); Blood Urea Nitrogen 14 mg/dL (7-17); Calcium 9.6 mg/dL (8.4-10.2); Carbon Dioxide 26 mmol/L (22-32); Chloride 107 mmol/L (98-107); Estimated Glomerular Filt Rate > 60.0 mL/min (>60); Ethanol (ETOH) < 10 mg/dL; Globulin 3.3 g/dL (1.7-4.1); Glucose 100 mg/dL (80-110); HEMOLYSIS 16 (0-50); Potassium 4.5 mmol/L (3.4-5.1); Salicylate < 1.0 mg/dL (<20); Sodium 142 mmol/L (137-145)
[2019-09-25 16:49] LABS: Free T4, Direct Thyroxine 1.07 ng/dL (0.78-2.19)
[2019-09-25 17:03] LABS: Thyroid Stimulating Hormone 2.08 uIU/mL (0.47-4.68)
--- NOTE | 2019-09-25 17:05 | PC.NURSE ---
social work at bedside
--- NOTE | 2019-09-25 17:05 | ED.PSYCH ---
HPI - Psych <Alfredo Villanueva MD - Last Filed: 09/26/19 15:22> General Chief Complaint: Psychiatric Symptoms Stated Complaint: Mental Break Down Time Seen by Provider: 09/25/19 17:01 Source: patient Mode of arrival: Ambulatory Related Data Home Medications Medication Instructions Recorded Confirmed cholecalciferol (vitamin D3) 25 2,000 unit PO DAILY cap 09/09/19 09/25/19 mcg (1,000 unit) capsule multivitamin 1 cap PO DAILY 09/09/19 09/25/19 omega-3 fatty acids 1,000 mg 2,000 mg PO DAILY 09/09/19 09/25/19 capsule Allergies Allergy/AdvReac Type Severity Reaction Status Date / Time azithromycin Allergy Intermediate Vomiting Verified 09/25/19 17:46 latex Allergy Intermediate Irritable Verified 09/25/19 17:46 amoxicillin Allergy Unknown Verified 09/25/19 17:46 aspirin AdvReac Intermediate Verified 09/25/19 17:46 lactose AdvReac Intermediate Diarrhea Verified 09/25/19 17:46 <Tabitha Suarez MD - Last Filed: 09/25/19 22:12> History of Present Illness HPI Narrative: 59-year-old woman with progressive anxiety over the last 3 months to the point that she has developed significant fixed paranoid delusions regarding the etiology of the anxiety, agoraphobia, dramatic insomnia, anxiety significant that she is having akathisia, panic attacks with significant palpitations, weight loss, dry mouth. She is been seeing outpatient providers and is getting continually worse. She took her citalopram for total of 9 days with worsening of all symptoms. She presents to [facility] today at the end of her rope requesting help. She is quite frightened and recognizes that her anxiety is dramatically inappropriate yet can not quite seem to alleviate it. There is no drug use and no significant severe depression previously. She is not currently suicidal however she does note if her symptoms can't improve, she has no interest in in living if she can't return to activities that she enjoys such as simply walking outside. <Tabitha Suarez MD - Last Filed: 09/25/19 22:12> Review of Systems Narrative: Pertinent positive and negative findings as per HPI. Significant fatigue and falling asleep during the day. Dramatic insomnia with only minimal sleep at night. Remainder of review of systems is otherwise unremarkable for Constitutional: Fevers, chills, weakness ENT: No sore throat, neck pain, ear pain CV: dyspnea on exertion Respiratory: Cough, wheeze, dyspnea GI: vomiting, diarrhea, change in bowel habits, black or bloody stools : Dysuria, hematuria, flank pain MS: Muscle weakness, numbness, joint swelling or warmth Skin: Rashes, nonhealing lesions Neuro: Syncope, dizziness, tingling Heme: Easy bruising or bleeding Patient History <Alfredo Villanueva MD - Last Filed: 09/26/19 15:22> Medical History Anxiety disorder, unspecified (Acute) Back stiffness (Acute) BPPV (benign paroxysmal positional vertigo) (Acute) Cervical somatic dysfunction (Acute) Chronic neck pain (Acute) Cranial somatic dysfunction (Acute) 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 (Acute) Establishing care with new doctor, encounter for (Acute) Genital herpes (Chronic) Pelvic somatic dysfunction (Acute) Seasonal allergies (Chronic) Segmental and somatic dysfunction of abdomen and other regions (Acute) Segmental and somatic dysfunction of rib cage (Acute) Segmental and somatic dysfunction of sacral region (Acute) Segmental and somatic dysfunction of thoracic region (Acute) Stiff neck (Acute) Surgical History Status post appendectomy (Resolved) Status post delivery (Resolved 10/15/79) Family History Father Stroke Mother Stroke Dementia Sister Stroke Social History marital status: household members: spouse lives independently: Yes caregiver/support person: No occupational status: employed Smoking Status: Never smoker second hand exposure: No alcohol intake: current substance use type: does not use Smoking Status: Never smoker alcohol intake frequency: 0-2 drinks per day Substance Use Type: does not use Exam <Alfredo Villanueva MD - Last Filed: 09/26/19 15:22> Initial Vital Signs Initial Vital Signs: Vital Signs Temperature 97.7 F 09/25/19 15:36 Pulse Rate 105 H 09/25/19 15:36 Respiratory Rate 22 09/25/19 15:36 Blood Pressure 178/96 H 09/25/19 15:36 Pulse Oximetry 97 09/25/19 15:36 <Tabitha Suarez MD - Last Filed: 09/25/19 22:12> Narrative Exam Narrative: General: Healthy appearing, obviously anxious with akesthesia, tearful but Able to give a complete and coherent history. HEENT: Moist mucous membranes, normal sclera with reactive pupils, Respiratory: Lungs are clear to auscultation, no wheezing no rales no rhonchi. Full and symmetrical air movement Cardiac: Regular rate and rhythm no murmurs no bruits Abdomen: Soft nontender good bowel tones, no flank pain Skin: Warm and dry, no rashes Neurologic: Grossly neurologically intact with no obvious asymmetries or abnormalities Extremities: No trauma, well perfused Psych: Cooperative, appropriate insight and affect Initial Vital Signs Initial Vital Signs: Vital Signs Temperature 97.7 F 09/25/19 15:36 Pulse Rate 105 H 09/25/19 15:36 Respiratory Rate 22 09/25/19 15:36 Blood Pressure 178/96 H 09/25/19 15:36 Pulse Oximetry 97 09/25/19 15:36 Course <Alfredo Villanueva MD - Last Filed: 09/26/19 15:22> Course Course Narrative: 9099: I went in to evaluate the patient and the medical staff assistant Anmol was already in the room evaluating the patient. Orders Ordered: Discontinued Medications Diazepam (Valium) 5 mg PO NOW ONE Stop: 09/25/19 20:19 Last Admin: 09/25/19 21:52 Dose: 5 mg Documented by: MICHELLE Vital Signs Vital signs: Vital Signs - 8 hr 09/25/19 15:36 09/25/19 17:30 09/25/19 21:56 Temperature 97.7 F Pulse Rate 105 H 72 70 Respiratory Rate 22 16 17 Blood Pressure 178/96 H Blood Pressure [Right Arm] 148/90 H 117/76 Pulse Oximetry 97 97 <Tabitha Suarez MD - Last Filed: 09/25/19 22:12> Orders Ordered: Discontinued Medications Diazepam (Valium) 5 mg PO NOW ONE Stop: 09/25/19 20:19 Last Admin: 09/25/19 21:52 Dose: 5 mg Documented by: FHUDSON Vital Signs Vital signs: Vital Signs - 8 hr 09/25/19 15:36 09/25/19 17:30 09/25/19 21:56 Temperature 97.7 F Pulse Rate 105 H 72 70 Respiratory Rate 22 16 17 Blood Pressure 178/96 H Blood Pressure [Right Arm] 148/90 H 117/76 Pulse Oximetry 97 97 [facility] - Psych <Alfredo Villanueva MD - Last Filed: 09/26/19 15:22> Lab Data Result diagrams: 09/25/19 16:08 09/25/19 16:08 Labs: Lab Results 09/25/19 09/25/19 09/25/19 Range/Units 16:08 16:08 16:08 WBC 7.4 (4.5-11.0) X10^3/uL RBC 4.26 (4.0-5.2) X10^6/uL Hgb 14.2 (12.0-16.0) g/dL Hct 40.6 (36-46) % MCV 95.4 (80-100) fL MCH 33.4 (26-34) PG MCHC 35.0 (30-36) % RDW 13.4 (11.6-14.8) % Plt Count 283 (150-400) X10^3/uL Neut % (Auto) 65.9 (50-75) % Lymph % (Auto) 26.7 (25-40) % [place] % (Auto) 5.8 (3-14) % Eos % (Auto) 0.7 L (2-4) % Baso % (Auto) 0.9 (0-2) % Neut # (Auto) 4900 (2058-8985) /uL Lymph # (Auto) 2000 (6732-8906) /uL [place] # (Auto) 400 (0-900) /uL Eos # (Auto) 100 (0-450) /uL Baso # (Auto) 100 (0-100) /uL Sodium 142 (137-145) mmol/L Potassium 4.5 (3.4-5.1) mmol/L Chloride 107 (98-107) mmol/L Carbon Dioxide 26 (22-32) mmol/L BUN 14 (7-17) mg/dL Creatinine 0.69 (0.52-1.04) mg/dL Estimated GFR > 60.0 (>60) mL/min BUN/Creatinine Ratio 20.3 (6-22) Glucose 100 (80-110) mg/dL Calcium 9.6 (8.4-10.2) mg/dL Total Bilirubin 0.6 (0.2-1.3) mg/dL AST 27 (14-36) IU/L ALT 18 (<35) IU/L Alkaline Phosphatase 83 (38-126) U/L Total Protein 8.0 (6.3-8.2) g/dL Albumin 4.7 (3.5-5.0) g/dL Globulin 3.3 (1.7-4.1) g/dL Albumin/Globulin Ratio 1.4 (1.0-2.8) TSH 2.08 (0.47-4.68) uIU/mL Free T4 1.07 (0.78-2.19) ng/dL Salicylates < 1.0 (<20) mg/dL U Opiates 300ng/mL cut (Negative) Ur Oxycodone Screen (Negative) Urine Methadone Screen (Negative) Acetaminophen < 10 L (10-30) ug/mL Ur Barbiturates Screen (Negative) U Tricyclic Antidepress (Negative) Ur Phencyclidine Scrn (Negative) Ur Amphetamines Screen (Negative) U Methamphetamines Scrn (Negative) Ur MDMA Scrn (Ecstasy) (Negative) U Benzodiazepines Scrn (Negative) Urine Cocaine Screen (Negative) U Marijuana (THC) Screen (Negative) Ethyl Alcohol < 10 ( - 10) mg/dL 05//20 Range/Units 18:35 WBC (4.5-11.0) X10^3/uL RBC (4.0-5.2) X10^6/uL Hgb (12.0-16.0) g/dL Hct (36-46) % MCV (80-100) fL MCH (26-34) PG MCHC (30-36) % RDW (11.6-14.8) % Plt Count (150-400) X10^3/uL Neut % (Auto) (50-75) % Lymph % (Auto) (25-40) % [place] % (Auto) (3-14) % Eos % (Auto) (2-4) % Baso % (Auto) (0-2) % Neut # (Auto) (1067-5013) /uL Lymph # (Auto) (6793-1379) /uL [place] # (Auto) (0-900) /uL Eos # (Auto) (0-450) /uL Baso # (Auto) (0-100) /uL Sodium (137-145) mmol/L Potassium (3.4-5.1) mmol/L Chloride (98-107) mmol/L Carbon Dioxide (22-32) mmol/L BUN (7-17) mg/dL Creatinine (0.52-1.04) mg/dL Estimated GFR (>60) mL/min BUN/Creatinine Ratio (6-22) Glucose (80-110) mg/dL Calcium (8.4-10.2) mg/dL Total Bilirubin (0.2-1.3) mg/dL AST (14-36) IU/L ALT (<35) IU/L Alkaline Phosphatase (38-126) U/L Total Protein (6.3-8.2) g/dL Albumin (3.5-5.0) g/dL Globulin (1.7-4.1) g/dL Albumin/Globulin Ratio (1.0-2.8) TSH (0.47-4.68) uIU/mL Free T4 (0.78-2.19) ng/dL Salicylates (<20) mg/dL U Opiates 300ng/mL cut Negative (Negative) Ur Oxycodone Screen Negative (Negative) Urine Methadone Screen Negative (Negative) Acetaminophen (10-30) ug/mL Ur Barbiturates Screen Negative (Negative) U Tricyclic Antidepress Negative (Negative) Ur Phencyclidine Scrn Negative (Negative) Ur Amphetamines Screen Negative (Negative) U Methamphetamines Scrn Negative (Negative) Ur MDMA Scrn (Ecstasy) Negative (Negative) U Benzodiazepines Scrn Negative (Negative) Urine Cocaine Screen Negative (Negative) U Marijuana (THC) Screen Negative (Negative) Ethyl Alcohol ( - 10) mg/dL Urine Dip Bedside Urine Glucose Negative Bedside Urine Bilirubin - Negative Bedside Urine Ketone - Negative Urine Specific [place] 1.020 Bedside Urine Occult Blood - Negative Bedside Urine pH 6.0 Bedside Urine Protein - Negative Bedside Urine Urobilinogen - Negative Bedside Urine Nitrite - Negative Bedside Urine Leukocytes - Negative Esterase <Tabitha Suarez MD - Last Filed: 09/25/19 22:12> Medical Records Attestation: I reviewed the patient's medical records. Lab Data Attestation: I reviewed the patient's lab results. Labs: Lab Results 09/25/19 09/25/19 09/25/19 Range/Units 16:08 16:08 16:08 WBC 7.4 (4.5-11.0) X10^3/uL RBC 4.26 (4.0-5.2) X10^6/uL Hgb 14.2 (12.0-16.0) g/dL Hct 40.6 (36-46) % MCV 95.4 (80-100) fL MCH 33.4 (26-34) PG MCHC 35.0 (30-36) % RDW 13.4 (11.6-14.8) % Plt Count 283 (150-400) X10^3/uL Neut % (Auto) 65.9 (50-75) % Lymph % (Auto) 26.7 (25-40) % [place] % (Auto) 5.8 (3-14) % Eos % (Auto) 0.7 L (2-4) % Baso % (Auto) 0.9 (0-2) % Neut # (Auto) 4900 (3699-7229) /uL Lymph # (Auto) 2000 (5528-1565) /uL [place] # (Auto) 400 (0-900) /uL Eos # (Auto) 100 (0-450) /uL Baso # (Auto) 100 (0-100) /uL Sodium 142 (137-145) mmol/L Potassium 4.5 (3.4-5.1) mmol/L Chloride 107 (98-107) mmol/L Carbon Dioxide 26 (22-32) mmol/L BUN 14 (7-17) mg/dL Creatinine 0.69 (0.52-1.04) mg/dL Estimated GFR > 60.0 (>60) mL/min BUN/Creatinine Ratio 20.3 (6-22) Glucose 100 (80-110) mg/dL Calcium 9.6 (8.4-10.2) mg/dL Total Bilirubin 0.6 (0.2-1.3) mg/dL AST 27 (14-36) IU/L ALT 18 (<35) IU/L Alkaline Phosphatase 83 (38-126) U/L Total Protein 8.0 (6.3-8.2) g/dL Albumin 4.7 (3.5-5.0) g/dL Globulin 3.3 (1.7-4.1) g/dL Albumin/Globulin Ratio 1.4 (1.0-2.8) TSH 2.08 (0.47-4.68) uIU/mL Free T4 1.07 (0.78-2.19) ng/dL Salicylates < 1.0 (<20) mg/dL U Opiates 300ng/mL cut (Negative) Ur Oxycodone Screen (Negative) Urine Methadone Screen (Negative) Acetaminophen < 10 L (10-30) ug/mL Ur Barbiturates Screen (Negative) U Tricyclic Antidepress (Negative) Ur Phencyclidine Scrn (Negative) Ur Amphetamines Screen (Negative) U Methamphetamines Scrn (Negative) Ur MDMA Scrn (Ecstasy) (Negative) U Benzodiazepines Scrn (Negative) Urine Cocaine Screen (Negative) U Marijuana (THC) Screen (Negative) Ethyl Alcohol < 10 ( - 10) mg/dL 09/25/19 Range/Units 18:35 WBC (4.5-11.0) X10^3/uL RBC (4.0-5.2) X10^6/uL Hgb (12.0-16.0) g/dL Hct (36-46) % MCV (80-100) fL MCH (26-34) PG MCHC (30-36) % RDW (11.6-14.8) % Plt Count (150-400) X10^3/uL Neut % (Auto) (50-75) % Lymph % (Auto) (25-40) % [place] % (Auto) (3-14) % Eos % (Auto) (2-4) % Baso % (Auto) (0-2) % Neut # (Auto) (8841-2958) /uL Lymph # (Auto) (0125-2457) /uL [place] # (Auto) (0-900) /uL Eos # (Auto) (0-450) /uL Baso # (Auto) (0-100) /uL Sodium (137-145) mmol/L Potassium (3.4-5.1) mmol/L Chloride (98-107) mmol/L Carbon Dioxide (22-32) mmol/L BUN (7-17) mg/dL Creatinine (0.52-1.04) mg/dL Estimated GFR (>60) mL/min BUN/Creatinine Ratio (6-22) Glucose (80-110) mg/dL Calcium (8.4-10.2) mg/dL Total Bilirubin (0.2-1.3) mg/dL AST (14-36) IU/L ALT (<35) IU/L Alkaline Phosphatase (38-126) U/L Total Protein (6.3-8.2) g/dL Albumin (3.5-5.0) g/dL Globulin (1.7-4.1) g/dL Albumin/Globulin Ratio (1.0-2.8) TSH (0.47-4.68) uIU/mL Free T4 (0.78-2.19) ng/dL Salicylates (<20) mg/dL U Opiates 300ng/mL cut Negative (Negative) Ur Oxycodone Screen Negative (Negative) Urine Methadone Screen Negative (Negative) Acetaminophen (10-30) ug/mL Ur Barbiturates Screen Negative (Negative) U Tricyclic Antidepress Negative (Negative) Ur Phencyclidine Scrn Negative (Negative) Ur Amphetamines Screen Negative (Negative) U Methamphetamines Scrn Negative (Negative) Ur MDMA Scrn (Ecstasy) Negative (Negative) U Benzodiazepines Scrn Negative (Negative) Urine Cocaine Screen Negative (Negative) U Marijuana (THC) Screen Negative (Negative) Ethyl Alcohol ( - 10) mg/dL Urine Dip Bedside Urine Glucose Negative Bedside Urine Bilirubin - Negative Bedside Urine Ketone - Negative Urine Specific [place] 1.020 Bedside Urine Occult Blood - Negative Bedside Urine pH 6.0 Bedside Urine Protein - Negative Bedside Urine Urobilinogen - Negative Bedside Urine Nitrite - Negative Bedside Urine Leukocytes - Negative Esterase MDM Narrative Medical decision making narrative: 59-year-old woman with dramatically progressive anxiety over the last approximately 3 months to the point where she is no longer able to sleep, is losing weight because she has no appetite and is nauseated all the time, having difficulty focusing, afraid to go outside and tearful most of the day. She is requesting voluntary psychiatric admission to help with her acute anxiety issues. She is medically clear. Will give her 5 mg of Valium in the emergency department help with the acute anxiety associated with this evaluation and with anticipated transport to [facility] for inpatient voluntary psychiatric admission Accepted at [facility], voluntary admission. Transport arrange for arrival in admission to facility by midnight. Safe for transport Discharge Plan Departure Patient Disposition: Xfer Psychiatric Hosp Clinical Impression: Anxiety, Paranoid delusion Discharge Date/Time: 09/25/19 22:37 Referrals: Priscilla Morris PA-C [Primary Care Provider] -
[2019-09-25 17:30] VITALS: BP 148/90; PULSE 72; RESP 16; O2SAT 97
--- NOTE | 2019-09-25 17:56 | CM.SWNOTE ---
Addendum entered by Anmol Corea 09/25/19 21:14: Kristyn from [facility] called [employer] and informed [employer] DESIGN CONSULTANT that patient was accepted for placement. Accepting physician: Dr. Zapata. [id number]: [phone]. Intake contact Kristyn. Check in midnight/ 0000 09/25. Address [address] [place] [address] [place], [address]. [employer] CON[employer]ANT called [facility] to check status on bed. Staff at reported that they were processing several intakes for open bed before the intake for patient, and that it was unlikely that she would be placed there tonight. [employer] DESIGN CONSULTANT asked staff at [facility] to cancel referral. RAILRO[employer] DESIGN CONSULTANT informed patient, BENIGNO Small, and Dr. Suarez of acceptance to [facility] and of details of transfer. Plan: Patient to transfer to [facility] in [place] for check in time of 0000 09/25. MARITZA Cornejo Addendum entered by Anmol Corea 09/25/19 20:25: [employer]ILRO[employer] DESIGN CONSULTANT note [facility] DESIGN CONS[facility]ANT called [facility] and [facility] seeking inpatient behavioral health placement for patient. Both facilities were full. [facility] DESIGN CONSULTANT called [facility] intake and spoke to Kristyn. Kristyn informed [facility] they may have a bed and requested that clinicals be fax[facility]. [facility] DESIGN CONSULTANT faxed clinicals to [facility]. Kristyn called [employer] shortly after fax had been recieved and requested updated chart. Kristyn informed [employer] DES[employer] CONSULTANT that it was likely that patient was a good fit for [facility] and she would follow up with [employer] by 2100. [employer] DES[employer] CONS[employer]ANT faxed updated chart to Kristyn. RAILRO[employer] DESIGN CONSULTANT met with patient and discussed update. Patient said she was open to [facility] and requested that [facility] DES[employer] CONS[facility]ANT see if [facility] had any availability, and indicated preference for [facility] due to proximity to home. Patient provides consent for clinicals to be faxed to [facility] as well. [facility] DESIGN CONSULTANT called [facility] and spoke to Teri. Teri informs [employer] that there are several referrals already in line for any open beds, but completes phone screening and requests that [employer] fax clinicals. [employer] CONS[facility]ANT faxes clinicals to [facility]. [employer] DESIGN CONSULTANT provides update to BENIGNO Small and patient. RA[employer]RO[employer] DESIGN CONSULTANT will follow up with both hospitals, patient, and RN before end of shift at 2130 on 09/24. MARITZA Cornejo Original Note: [employer]IGN CONS[employer]ANT note [employer] CONSULTANT consult requested for patient. Patient is a 59 y/o female who presents to the ED for stated complaint of mental health breakdown. RAILROAD DESIGN CONSULTANT enters room and introduces self to patient. Patient is accompanied by Rosales and friend Abby. RAILROAD DESIGN CONSULTANT asks if she is consents to Rosales and Abby being present for interview and patient provides consent. Patient reports a change in personality starting 6 weeks ago, with a significant escalation of feelings of anxiety, fear of going outside, insomnia, lack of energy and motivation, panic attacks and SI over the past two weeks. Patient reports no prior history of mental health issues or concerns and patient, Rosales, and Abby describe patient as having a high amount of energy and positively prior to the onset of these symptoms. Patient reports that she believes the onset of her symptoms followed an an adjustment performed on her sternum by an osteopath in May. Patient reports that she started to immediately feel physical presentations of anxiety after the adjustment. Patient stated her PCP prescribed her an anti-depressant, but patient discontinued this after 9 doses. Patient reports discontinuing medicine roughly 6 weeks ago. Patient reports that she is unable to eat unless someone is supervising her consumption, is experiencing insomnia, is feeling detached from herself and who she was, and is having looping thoughts about the change in personality. Patient report that these looping thoughts can often make her feel as though she is having a panic attack. Rosales has taken over 6 weeks off of work to be at home with patient due to concern for safety and her mental health since the start 2019. Patient reports that she does not feel safe unless Rosales is present, and patient, Rosales, and Abby, all indicate that this is a marked shift from patient's base state, and report that patient was previously very comfortable being alone and being outside. When asked about SI, Patient reports having thoughts about taking all of [her] pills, and states she just doesn't want to feel this way for the rest of my life. Throughout interview, patient states makes reference to suicide multiple times stating: I don't want to kill myself, but I can't go on feeling this way. Patient reports several somatic experiences of anxiety including heart palpitation and a consistent feeling of itching under her skin, and regular tremors and feelings of shakiness. Patient reports that she hasn't slept more than 1-2 hours per night for the past several weeks. Patient reports attempting psychiatry during the past 6 weeks but found it unsuccessful. Patient reports having been to emergency departments 4 times during the past 13 days for this mental health concern. Patient had two visits to ED earlier in the year for topics related to current concern as well. At this time, it is the recommendation of [employer] CONS[employer]ANT that patient receive inpatient behavioral health hospitalization. RAILROAD DESIGN CONSULTANT explains recommendation to patient and family. Patient says the thought of inpatient treatment scares her, but she states she is no longer safe at home and says she isn't able to keep herself safe at home without supervision at this time. Patient, family, and RA[employer]RO[employer] DESIGN CONSULTANT discuss inpatient hospitalization for behavioral health, and all Patient is calm and cooperative throughout visit. Patient cries during assessment, is visibly shaky, and expresses desire for help. RAILROAD DESIGN CONSULTANT informs patient and family of next steps for inpatient treatment and exits room. RAILROAD DESIGN CONSULTANT staffed case with Dr. Villanueva and informed Dr. Villanueva of recommendation. Pl: RAILROAD DESIGN CONSULTANT to seek bed for voluntary behavioral health hospitalization for patient. MARITZA Cornejo
[2019-09-25 18:54] LABS: UR Morphine/Opiate cutoff 300 Negative (Negative); Ur Creatinine Normal (Normal); Ur Specific Gravity Normal (Normal); Urine Amphetamines Negative (Negative); Urine Barbiturates Negative (Negative); Urine Benzodiazepines Negative (Negative); Urine Cocaine Negative (Negative); Urine MDMA Negative (Negative); Urine Methadone Negative (Negative); Urine Methamphetamines Negative (Negative); Urine Oxycodone Negative (Negative); Urine Phencyclidine Negative (Negative); Urine Tetrahydrocannabinol Negative (Negative); Urine Tricyclic Antidepressant Negative (Negative); Urine pH Normal (Normal)
[2019-09-25] MEDS: diazePAM 5 MG TABLET PO (21:52)
[2019-09-25 21:56] VITALS: BP 117/76; PULSE 70; RESP 17
--- NOTE | 2019-09-26 07:47 | CM.SWNOTE ---
CLINICAL RN LIAISON had Social Work Consult order on patient from the evening before and per previous SW note from Anmol yesterday 09/25/19 looks that patient was able to be voluntarily placed at [facility] late last night/early this morning for mental health stabilization and no further SW needs at this time. MARITZA Yancey
== END 2019-09-25 22:37 ==
PROVIDERS: Emergency Medicine; Emergency Provider Emergency Medicine; PCP Physician Assistant
DX: F41.9 Anxiety disorder, unspecified (principal); F22 Delusional disorders
CPT/HCPCS: 36415; 80053; 80305; 80320; 80329; 81003; 84439; 84443; 85025; 93005; 99284; G0480

== ENCOUNTER 2024-07-16 09:42 | Emergency (ER) | payer OTHER, SELFPAY ==
[2024-07-16 09:48] VITALS: BP 137/85; PULSE 91; RESP 14; TEMP 36.1; O2SAT 99; BMI 29.0
--- NOTE | 2024-07-16 10:04 | EKG_ITS ---
[address] [address] Test Date: 2024-07-16 Pat Name: Karen Rao Department: Room: Gender: Female Geospatial Intelligence Analyst: FIDEL : 1960 Requested By: Order Number: [id number] Reading MD: Tarik Matthews Measurements Intervals [place] Rate: 79 P: 65 NV: 120 QRS: 53 QRSD: 88 T: 35 QT: 384 QTc: 440 Interpretive Statements Normal sinus rhythm Possible Left atrial enlargement Electronically Signed On 07-17-2024 18:29:09 PDT by Tarik Matthews
[2024-07-16 10:35] LABS: Add Manual Diff / Slide Review NO; Alanine Aminotransferase 19 IU/L (<35); Albumin Globulin Ratio 1.4 (1.0-2.8); Alkaline Phosphatase 99 U/L (38-126); Aspartate Aminotransferase 30 IU/L (14-36); BUN Creatinine Ratio 15.5 (6-22); Basophils Absolute Auto 100 /uL (0-100); Bilirubin Total 0.5 mg/dL (0.2-1.3); Blood Urea Nitrogen 15 mg/dL (7-17); Calcium 10.3 mg/dL (8.4-10.2); Carbon Dioxide 26 mmol/L (22-32); Chloride 103 mmol/L (98-107); Eosinophils Absolute Auto 0 /uL (0-450); Eosinophils Percent Auto 0.5 % (2-4); Estimated Glomerular Filt Rate > 60 mL/min (>60); Globulin 3.6 g/dL (1.7-4.1); Glucose 109 mg/dL (80-110); HEMOLYSIS < 15 (0-50); Hematocrit 46.8 % (36-46); Hemoglobin 15.6 g/dL (12.0-16.0); Lipase 36 U/L (23-300); Lymphocytes Absolute Auto 1500 /uL (1100-4500); Lymphocytes Percent Auto 19.6 % (25-40); Mean Corpuscular HGB Conc 33.4 % (30-36); Mean Corpuscular Hemoglobin 31.9 PG (26-34); Mean Corpuscular Volume 95.5 fL (80-100); Monocytes Absolute Auto 500 /uL (0-900); Monocytes Percent Auto 5.9 % (3-14); Neutrophils Absolute Auto 5600 /uL (1500-7000); Platelet Count 305 X10^3/uL (150-400); Potassium 4.4 mmol/L (3.4-5.1); Red Blood Cell Count 4.89 X10^6/uL (4.0-5.2); Red Cell Distribution Width 13.3 % (11.6-14.8); Sodium 141 mmol/L (137-145); Total Protein 8.6 g/dL (6.3-8.2); White Blood Cell Count 7.6 X10^3/uL (4.5-11.0)
--- NOTE | 2024-07-16 11:56 | ED_ITS ---
HPI - Abdominal Pain <LESLI Medina Last Filed: 07/16/24 14:39> General Chief Complaint: Abdominal Pain Stated Complaint: abd pain 5wks, weakness Time Seen by Provider: 07/16/24 11:18 Mode of arrival: Ambulatory History of Present Illness HPI narrative: Ms. Rao is a pleasant 64-year-old female with a past medical history of bipolar disorder, depression, anxiety, chronic neck pain, BPPV who presents to the emergency department for epigastric abdominal pain x5 weeks. Patient states that she was taking Zyrtec allergy pill for 10 years for seasonal allergies but about 5 weeks ago realized that she no longer has allergies and does not need to be taking it so she stopped his medication ?cold turkey? and states that she immediately developed headache, abdominal pain, and severe abdominal burning immediately after stopping it. This abdominal burning has continued for the last 5 weeks in addition to diffuse abdominal pain and constipation. States that she is concerned it is due to a drastic increase in histamine. She has not taken any medications for this pain. She denies fevers, chills, vomiting, diarrhea, dysuria, hematuria. She admits to decreased appetite and constipation. Prior abdominal surgeries include 2 cyst removals and a C- section. Recent negative H pylori testing. Related Data Home Medications Medication Instructions Recorded Confirmed eszopiclone 1 mg tablet (Lunesta) 1 mg PO BEDTIME PRN sleep 10/06/19 11/01/19 Previous Rx's Medication Instructions Recorded clonazepam 0.5 mg tablet 0.5 mg PO TID #10 tabs 10/27/19 pantoprazole 20 mg tablet,delayed 20 mg PO DAILY #30 tabs 07/16/24 release (Protonix) Allergies Allergy/AdvReac Type Severity Reaction Status Date / Time azithromycin Allergy Intermediate Vomiting Verified 07/16/24 09:48 latex Allergy Intermediate Irritable Verified 07/16/24 09:48 amoxicillin Allergy Unknown Verified 07/16/24 09:48 aspirin AdvReac Intermediate Verified 07/16/24 09:48 lactose AdvReac Intermediate Diarrhea Verified 07/16/24 09:48 Review of Systems <LESLI Medina Last Filed: 07/16/24 14:39> Review of Systems ROS Unobtainable: All systems reviewed & are unremarkable except as noted in HPI and below Patient History <Sharlene Goff PA-C - Last Filed: 07/16/24 14:39> Medical History (Updated 07/16/24 @ 13:44 by Sharlene Goff PA-C) 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 Anxiety disorder, unspecified Segmental and somatic dysfunction of abdomen and other regions Segmental and somatic dysfunction of sacral region Pelvic somatic dysfunction Segmental and somatic dysfunction of rib cage Segmental and somatic dysfunction of thoracic region Cervical somatic dysfunction Cranial somatic dysfunction Back stiffness Chronic neck pain Stiff neck BPPV (benign paroxysmal positional vertigo) Establishing care with new doctor, encounter for Genital herpes Seasonal allergies Surgical History Status post delivery (10/15/79) Status post appendectomy Family History Father Stroke Mother Stroke Dementia Sister Stroke Social History marital status: household members: spouse lives independently: Yes caregiver/support person: No occupational status: employed Smoking Status: Never smoker second hand exposure: No alcohol intake: current substance use type: does not use Smoking Status: Never smoker alcohol intake frequency: 0-2 drinks per day Exam <Sharlene Goff PA-C - Last Filed: 07/16/24 14:39> Narrative Exam Narrative: GENERAL: 64 year old patient appears stated age. Well-developed patient, in no acute distress. HEAD: Atraumatic. Normocephalic. NECK: Trachea midline. Cervical ROM intact. CARDIOVASCULAR: Regular rate and rhythm. RESPIRATORY: ?Nonlabored respirations. ?Speaking in clear, full sentences. ?Clear to auscultation. Breath sounds equal bilaterally. No wheezes, rales, or rhonchi. ? GASTROINTESTINAL: Abdomen soft, nondistended, no rebound or guarding. Subjective tenderness to palpation throughout the entire abdomen but worse in the epigastric region. EXTREMITIES: No edema or joint tenderness. BACK: No CVA tenderness. NEURO: AOx3. ?Clear speech. ?Moves all 4 extremities appropriately. SKIN: No rash or erythema of visible areas Initial Vital Signs Initial Vital Signs: Vital Signs Temperature 97.0 F L 07/16/24 09:48 Pulse Rate 91 H 07/16/24 09:48 Respiratory Rate 14 07/16/24 09:48 Blood Pressure 137/85 07/16/24 09:48 Pulse Oximetry 99 07/16/24 09:48 Oxygen Delivery Method Room Air 07/16/24 09:48 <Kristie Oglesby DO - Last Filed: 07/17/24 23:25> Initial Vital Signs Initial Vital Signs: Vital Signs Temperature 97.0 F L 07/16/24 09:48 Pulse Rate 91 H 07/16/24 09:48 Respiratory Rate 14 07/16/24 09:48 Blood Pressure 137/85 07/16/24 09:48 Pulse Oximetry 99 07/16/24 09:48 Oxygen Delivery Method Room Air 07/16/24 09:48 Course <Sharlene Goff PA-C - Last Filed: 07/16/24 14:39> Orders Ordered: Discontinued Medications Al Hydrox/Mg Hydrox/Simethicone 20 ml/ Lidocaine HCl 15 ml 0 ml PO NOW ONE Stop: 07/16/24 11:55 Last Admin: 07/16/24 12:14 Dose: 35 ml Documented By: EDGAR Sodium Chloride (Normal Saline 0.9%) 1,000 mls @ 1,000 mls/hr IV BOLUS ONE Stop: 07/16/24 12:53 Last Infusion: 07/16/24 13:30 Dose: Infused Documented By: Admin: 07/16/24 12:17 Dose: 1,000 mls/hr Documented By: EDGAR Ondansetron HCl (Ondansetron 4 Mg/2 Ml Inj) 4 mg IV NOW PRN PRN Reason: Nausea And Vomiting Ondansetron HCl (Ondansetron 4 Mg Odt) 4 mg PO NOW PRN PRN Reason: Nausea And Vomiting Pantoprazole Sodium (Pantoprazole 40 Mg Vial) 40 mg IV NOW ONE Stop: 07/16/24 11:55 Last Admin: 07/16/24 12:17 Dose: 40 mg Documented By: EDGAR Vital Signs Vital signs: Vital Signs - 8 hr 07/16/24 09:48 07/16/24 14:09 Temperature 97.0 F L Pulse Rate 91 H 71 Respiratory Rate 14 17 Blood Pressure 137/85 181/80 H Pulse Oximetry 99 97 Oxygen Delivery Method Room Air Room Air <DO Los Sheets Last Filed: 07/17/24 23:25> Orders Ordered: Discontinued Medications Al Hydrox/Mg Hydrox/Simethicone 20 ml/ Lidocaine HCl 15 ml 0 ml PO NOW ONE Stop: 07/16/24 11:55 Last Admin: 07/16/24 12:14 Dose: 35 ml Documented By: EDGAR Sodium Chloride (Normal Saline 0.9%) 1,000 mls @ 1,000 mls/hr IV BOLUS ONE Stop: 07/16/24 12:53 Last Infusion: 07/16/24 13:30 Dose: Infused Documented By: Admin: 07/16/24 12:17 Dose: 1,000 mls/hr Documented By: EDGAR Ondansetron HCl (Ondansetron 4 Mg/2 Ml Inj) 4 mg IV NOW PRN PRN Reason: Nausea And Vomiting Ondansetron HCl (Ondansetron 4 Mg Odt) 4 mg PO NOW PRN PRN Reason: Nausea And Vomiting Pantoprazole Sodium (Pantoprazole 40 Mg Vial) 40 mg IV NOW ONE Stop: 07/16/24 11:55 Last Admin: 07/16/24 12:17 Dose: 40 mg Documented By: EDGAR Vital Signs Vital signs: Vital Signs - 8 hr 07/16/24 09:48 07/16/24 14:09 Temperature 97.0 F L Pulse Rate 91 H 71 Respiratory Rate 14 17 Blood Pressure 137/85 181/80 H Pulse Oximetry 99 97 Oxygen Delivery Method Room Air Room Air MDM - Abdominal Pain <Sharlene Goff PA-C - Last Filed: 07/16/24 14:39> Medical Records Attestation: I reviewed the patient's medical records. Lab Data 07/16/24 10:10 07/16/24 10:10 Labs: Lab Results 07/16/24 07/16/24 Range/Units 10:10 13:03 WBC 7.6 (4.5-11.0) X10^3/uL RBC 4.89 (4.0-5.2) X10^6/uL Hgb 15.6 (12.0-16.0) g/dL Hct 46.8 H (36-46) % MCV 95.5 (80-100) fL MCH 31.9 (26-34) PG MCHC 33.4 (30-36) % RDW 13.3 (11.6-14.8) % Plt Count 305 (150-400) X10^3/uL Neut % (Auto) 73.0 (50-75) % Lymph % (Auto) 19.6 L (25-40) % [place] % (Auto) 5.9 (3-14) % Eos % (Auto) 0.5 L (2-4) % Baso % (Auto) 1.0 (0-2) % Neut # (Auto) 5600 (7437-8537) /uL Lymph # (Auto) 1500 (8094-9056) /uL [place] # (Auto) 500 (0-900) /uL Eos # (Auto) 0 (0-450) /uL Baso # (Auto) 100 (0-100) /uL Sodium 141 (137-145) mmol/L Potassium 4.4 (3.4-5.1) mmol/L Chloride 103 (98-107) mmol/L Carbon Dioxide 26 (22-32) mmol/L BUN 15 (7-17) mg/dL Creatinine 0.97 (0.52-1.04) mg/dL Estimated GFR > 60 (>60) mL/min BUN/Creatinine Ratio 15.5 (6-22) Glucose 109 (80-110) mg/dL Calcium 10.3 H (8.4-10.2) mg/dL Total Bilirubin 0.5 (0.2-1.3) mg/dL AST 30 (14-36) IU/L ALT 19 (<35) IU/L Alkaline Phosphatase 99 (38-126) U/L Total Protein 8.6 H (6.3-8.2) g/dL Albumin 5.0 (3.5-5.0) g/dL Globulin 3.6 (1.7-4.1) g/dL Albumin/Globulin Ratio 1.4 (1.0-2.8) Lipase 36 (23-300) U/L Urine RBC 1-5/hpf (0-5/HPF) Urine WBC 1-5/hpf (0-5/HPF) Ur Squamous Epith Cells 1-5 /hpf (0-5/HPF) Calcium Oxalate Crystal Moderate H Urine Bacteria Occasional (0-1) (None) Urine Mucus 2+ H (Negative) Ur Culture Indicated? Cult not indicated Vol Urine Centrifuged 10ml (spun) Point of care testing: Urine Dip Bedside Urine Glucose Negative Bedside Urine Bilirubin - Negative Bedside Urine Ketone + 15 Urine Specific [place] 1.030 Bedside Urine Occult Blood - Negative Bedside Urine pH 5.5 Bedside Urine Protein +/- 15 Bedside Urine Urobilinogen - Negative Bedside Urine Nitrite - Negative Bedside Urine Leukocytes - Negative Esterase Imaging Data CT scan - abdomen/pelvis: Radiologist's Impression: PROCEDURE: CT ABDOMEN PELVIS W CON INDICATIONS: diffuse abd pain, burning epigastrum TECHNIQUE: After the administration of intravenous contrast, axial sections acquired from the lung bases to the pubic symphysis. Coronal and sagittal reformats were performed. For radiation dose reduction, the following was used: automated exposure control, adjustment of mA and/or kV according to patient size. COMPARISON: [facility], CT, CT ABDOMEN PELVIS W CON, 07/25/2019, 4:54. FINDINGS: Image quality: Diagnostic. Lower Chest: No significant findings. ABDOMEN: Liver: No solid mass. Gallbladder: No radiopaque gallstones or wall thickening. Biliary ducts: No biliary dilation. Pancreas: No ductal dilation. Spleen: Size is within normal limits. Adrenal Glands: No adrenal nodules. Kidneys and Ureters: No hydronephrosis. No solid mass. No complex renal cystic lesion which requires follow up. Stomach and Bowel: Normal colonic caliber, without significant wall thickening. Peritoneum: No abnormal intraperitoneal fluid. No free air. Ventral Wall: No significant ventral hernia. Abdominal Nodes: No retroperitoneal or mesenteric adenopathy by size criteria. Vessels: Aorta and inferior vena cava are normal in size. PELVIS: Pelvic Organs: Unremarkable. Bladder: No bladder wall thickening, accounting for underdistention. Pelvic Nodes: No enlarged lymph nodes. Miscellaneous: No inguinal hernias are seen. Bones: No aggressive osseous abnormality. IMPRESSION: No acute abdominal process noted. MDM Narrative Medical decision making narrative: 64-year-old female with a past medical history of bipolar disorder, depression, anxiety, chronic neck pain, BPPV who presents to the emergency department for epigastric abdominal pain x5 weeks. Patient states that she was taking Zyrtec allergy pill for 10 years for seasonal allergies but about 5 weeks ago realized that she no longer has allergies and does not need to be taking it so she stopped his medication ?cold turkey? and states that she immediately developed headache, abdominal pain, and severe abdominal burning immediately after stopping it. Differential diagnosis includes but is not limited to GERD, pancreatitis, cholecystitis, diverticulitis, constipation, UTI, electrolyte abnormality, etc. On exam the patient is in no acute distress, nontoxic appearing, vital signs appropriate. Abdomen is soft but she does report discomfort with palpation everywhere but worse in the epigastrium. Lab work obtained in triage reveals mild hypercalcemia of 10.3 normal renal function and liver function, normal WBC count. We will proceed with IV fluids for hypercalcemia, GI cocktail and Protonix for pain, and CT abdomen and pelvis with IV contrast for further evaluation of abdominal tenderness. Patient's pain improved with ED treatment but she states there is some residual pain still deep within her stomach. GI cocktail resolved burning. CT abdomen pelvis reveals no acute abnormalities. Imaging was printed and discussed with the patient. Suspect at this time potential underlying GERD/esophagitis gastritis. Patient is concerned symptoms are related to discontinuation of Zyrtec, and while she does not have typical rash itching or other symptoms of increased histamine, potentially she has an underlying eosinophilic esophagitis. Recommended the patient start on daily Protonix and follow up with surgery for an endoscopy. Discussed follow up with PCP for further eval and repeat labs. Patient verbalized understanding of all information is agreeable to this plan. Abdominal exam benign, she is stable for discharge home <Kristie Oglesby, DO - Last Filed: 07/17/24 23:25> Lab Data Labs: Lab Results 07/16/24 07/16/24 Range/Units 10:10 13:03 WBC 7.6 (4.5-11.0) X10^3/uL RBC 4.89 (4.0-5.2) X10^6/uL Hgb 15.6 (12.0-16.0) g/dL Hct 46.8 H (36-46) % MCV 95.5 (80-100) fL MCH 31.9 (26-34) PG MCHC 33.4 (30-36) % RDW 13.3 (11.6-14.8) % Plt Count 305 (150-400) X10^3/uL Neut % (Auto) 73.0 (50-75) % Lymph % (Auto) 19.6 L (25-40) % [place] % (Auto) 5.9 (3-14) % Eos % (Auto) 0.5 L (2-4) % Baso % (Auto) 1.0 (0-2) % Neut # (Auto) 5600 (8964-8089) /uL Lymph # (Auto) 1500 (9994-8536) /uL [place] # (Auto) 500 (0-900) /uL Eos # (Auto) 0 (0-450) /uL Baso # (Auto) 100 (0-100) /uL Sodium 141 (137-145) mmol/L Potassium 4.4 (3.4-5.1) mmol/L Chloride 103 (98-107) mmol/L Carbon Dioxide 26 (22-32) mmol/L BUN 15 (7-17) mg/dL Creatinine 0.97 (0.52-1.04) mg/dL Estimated GFR > 60 (>60) mL/min BUN/Creatinine Ratio 15.5 (6-22) Glucose 109 (80-110) mg/dL Calcium 10.3 H (8.4-10.2) mg/dL Total Bilirubin 0.5 (0.2-1.3) mg/dL AST 30 (14-36) IU/L ALT 19 (<35) IU/L Alkaline Phosphatase 99 (38-126) U/L Total Protein 8.6 H (6.3-8.2) g/dL Albumin 5.0 (3.5-5.0) g/dL Globulin 3.6 (1.7-4.1) g/dL Albumin/Globulin Ratio 1.4 (1.0-2.8) Lipase 36 (23-300) U/L Urine RBC 1-5/hpf (0-5/HPF) Urine WBC 1-5/hpf (0-5/HPF) Ur Squamous Epith Cells 1-5 /hpf (0-5/HPF) Calcium Oxalate Crystal Moderate H Urine Bacteria Occasional (0-1) (None) Urine Mucus 2+ H (Negative) Ur Culture Indicated? Cult not indicated Vol Urine Centrifuged 10ml (spun) Point of care testing: Urine Dip Bedside Urine Glucose Negative Bedside Urine Bilirubin - Negative Bedside Urine Ketone + 15 Urine Specific [place] 1.030 Bedside Urine Occult Blood - Negative Bedside Urine pH 5.5 Bedside Urine Protein +/- 15 Bedside Urine Urobilinogen - Negative Bedside Urine Nitrite - Negative Bedside Urine Leukocytes - Negative Esterase ECG Data Interpretation: [place]- Normal sinus rhythm rate 79 OH interval 120 QRS [address] changes no T-wave inversions Discharge Plan Departure Patient Disposition: Home Clinical Impression: Hypercalcemia, Abdominal pain, epigastric Instructions: DI for Epigastric Pain Activity Restrictions/Additional Instructions: Dear Ms. Rao, Thank you for coming to the emergency department. Today you were evaluated for 5 weeks of abdominal pain. Your CT scan was very reassuring and did not show any intra-abdominal abnormalities. On your blood work, your calcium level was slightly high and you were treated with IV fluids. I would like you to follow up with the primary care doctor and also a surgeon for an upper endoscopy for further evaluation of potential gastritis or esophagitis. I prescribed you Protonix to take each morning for the next month. You may call to schedule an appointment with [facility] at [phone] for endoscopy. Please follow up with your primary care doctor within the next 2-3 days for ER follow-up. (If you do not have a PCP you can call [phone]. ?to schedule an appointment with an [facility] Primary Care Provider) IF YOU DEVELOP ANY NEW OR WORSENING SYMPTOMS, RETURN TO THE ER! Please read the attached instructions, they highlight more specific treatments and interventions for you at home. Thank you for letting me participate in your care, Sharlene Goff PA-C Prescriptions: New pantoprazole [Protonix] 20 mg tablet,delayed release (DR/EC) 20 mg PO DAILY Qty: 30 0RF No Action clonazepam 0.5 mg tablet 0.5 mg PO TID Qty: 10 0RF Hold Instructions: side effects eszopiclone [Lunesta] 1 mg tablet 1 mg PO BEDTIME PRN (Reason: sleep) Hold Instructions: starting quetiapine at HS 10/06/19 Referrals: Priscilla Morris PA-C [Primary Care Provider] - Stand Alone Forms: Patient Portal/API/Survey ED Sign-out <Kristie Oglesby DO - Last Filed: 07/17/24 23:25> Cosign ED Attending Crissature Attestation: I was available for consultation.
[2024-07-16] MEDS: MAG HYDROX/ALUMINUM/SIMETH SUS 20 ML, LIDOCAINE VISCOUS 2% 15 ML PO (12:14)
[2024-07-16] MEDS: SODIUM CHLORIDE 0.9% 1,000 ML 1000 ML IV (12:17)
[2024-07-16] MEDS: PANTOPRAZOLE 40 MG VIAL IV (12:17)
[2024-07-16 13:56] LABS: Bacteria Urine Occasional (0-1); Calcium Oxalate Crystals Urine Moderate; RBC Urine 1-5/HPF (0-5/HPF); Squamous Epithelial Cell Urine 1-5 /HPF (0-5/HPF); Urine Volume 10mL (spun); WBC Urine 1-5/HPF (0-5/HPF)
[2024-07-16 13:57] LABS: Culture Indicated Urine Cult Not Indicated; Mucus Urine 2+ (Negative)
[2024-07-16 14:09] VITALS: BP 181/80; PULSE 71; RESP 17; O2SAT 97
== END 2024-07-16 14:10 | disposition home or self-care (01) ==
PROVIDERS: Emergency Medicine; Emergency Provider Physician Assistant; PCP Physician Assistant
DX: R10.13 Epigastric pain (principal); E83.52 Hypercalcemia
CPT/HCPCS: 36415; 74177; 80053; 81003; 81015; 83690; 85025; 93005; 96361; 96374; 99284; J2470; Q9967

== ENCOUNTER 2024-07-19 07:12 | Emergency (ER) | payer OTHER, SELFPAY ==
[2024-07-19] VITALS (8 sets, daily range): BP systolic 134–166; BP diastolic 77–99; PULSE 77–87; RESP 20–25; TEMP 36.5; O2SAT 93–99; BMI 29.0
--- NOTE | 2024-07-19 07:23 | ED.GENADULT ---
HPI - General Adult General Chief complaint: Chest Pain Stated complaint: irregular heart rate, high BP Time Seen by Provider: 07/19/24 07:16 History of Present Illness HPI narrative: 64-year-old female complains of irregular fast heartbeat sensation onset 11:00 p.m. last night lasting through early this morning, went away, no associated diaphoresis, no associated nausea or vomiting, some associated anterior chest discomfort, no particular maneuver or medication tried to make the symptoms go away. No history of known CAD. She attributes symptoms related to stopping Zyrtec last month. No associated hives or itching with symptoms today. She has some upper abdominal discomfort, recent evaluation here with CT scan negative, she attributes her pain due to histamine release after stopping her Zyrtec, still taking her pantoprazole medication. No frequent or painful urination. No fevers or chills. Related Data Home Medications Medication Instructions Recorded Confirmed eszopiclone 1 mg tablet (Lunesta) 1 mg PO BEDTIME PRN sleep 10/06/19 11/01/19 Previous Rx's Medication Instructions Recorded clonazepam 0.5 mg tablet 0.5 mg PO TID #10 tabs 10/27/19 pantoprazole 20 mg tablet,delayed 20 mg PO DAILY #30 tabs 07/16/24 release (Protonix) hydroxyzine HCl 50 mg tablet 50 mg PO TID PRN anxiety #60 tabs 07/19/24 Allergies Allergy/AdvReac Type Severity Reaction Status Date / Time azithromycin Allergy Intermediate Vomiting Verified 07/16/24 09:48 latex Allergy Intermediate Irritable Verified 07/16/24 09:48 amoxicillin Allergy Unknown Verified 07/16/24 09:48 aspirin AdvReac Intermediate Verified 07/16/24 09:48 lactose AdvReac Intermediate Diarrhea Verified 07/16/24 09:48 Patient History Medical History (Updated 07/19/24 @ 10:37 by Frankie Mota MD) 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 Anxiety disorder, unspecified Segmental and somatic dysfunction of abdomen and other regions Segmental and somatic dysfunction of sacral region Pelvic somatic dysfunction Segmental and somatic dysfunction of rib cage Segmental and somatic dysfunction of thoracic region Cervical somatic dysfunction Cranial somatic dysfunction Back stiffness Chronic neck pain Stiff neck BPPV (benign paroxysmal positional vertigo) Establishing care with new doctor, encounter for Genital herpes Seasonal allergies Surgical History Status post delivery (10/15/79) Status post appendectomy Family History Father Stroke Mother Stroke Dementia Sister Stroke Social History marital status: household members: spouse lives independently: Yes caregiver/support person: No occupational status: employed Smoking Status: Never smoker second hand exposure: No alcohol intake: current substance use type: does not use Smoking Status: Never smoker alcohol intake frequency: 0-2 drinks per day Exam Narrative Exam Narrative: GENERAL: Well-developed patient, in mild distress. HEAD: Atraumatic. Normocephalic. EYES: Pupils equal round and reactive. Extraocular motions intact. No scleral icterus. No injection or drainage. ENT: Nose without bleeding, purulent drainage. Throat without erythema, tonsillar hypertrophy or exudate. Airway patent. NECK: Trachea midline. Non tender CARDIOVASCULAR: Regular rate and rhythm without murmurs, gallops, or rubs. RESPIRATORY: Clear to auscultation. Breath sounds equal bilaterally. No wheezes, rales, or rhonchi. GASTROINTESTINAL: Abdomen soft, non-tender, nondistended. EXTREMITIES: No edema or joint tenderness. BACK: Nontender without deformity or crepitance. No flank tenderness. NEURO: AOx3. Motor functions grossly nonfocal SKIN: No rash or erythema of visible areas Initial Vital Signs Initial Vital Signs: Vital Signs Temperature 97.7 F 07/19/24 07:20 Pulse Rate 86 07/19/24 07:20 Respiratory Rate 20 07/19/24 07:20 Blood Pressure 166/91 H 07/19/24 07:20 Pulse Oximetry 99 07/19/24 07:20 Oxygen Delivery Method Room Air 07/19/24 07:20 Course Orders Ordered: ED Orders 07/19/24 07:25 XR chest 1V Stat EKG-12 Lead Stat 07/19/24 07:30 Complete Blood Count AUTO DIFF Stat Comprehensive Metabolic Panel Stat Lipase Stat Magnesium Stat NT-proBNP (BNP-Adult 18+) Stat PTT Partial Thromboplastin Beto Stat Prothrombin Time INR Stat Troponin & CK Cardiac Panel Stat 07/19/24 09:30 Troponin I Stat Discontinued Medications Aspirin (Aspirin 81 Mg Chew Tab) 324 mg PO NOW ONE Stop: 07/19/24 07:26 Last Admin: 07/19/24 08:22 Dose: Not Given Documented By: RB Vital Signs Vital signs: Vital Signs - 8 hr 07/19/24 07:20 07/19/24 07:20 07/19/24 07:30 Temperature 97.7 F Pulse Rate 86 82 80 Respiratory Rate 20 Blood Pressure 166/91 H Pulse Oximetry 99 99 98 Oxygen Delivery Method Room Air Room Air 07/19/24 07:30 07/19/24 08:00 07/19/24 08:00 Temperature Pulse Rate 80 Respiratory Rate 25 H Blood Pressure 152/99 H 138/77 Pulse Oximetry 95 Oxygen Delivery Method 07/19/24 08:30 07/19/24 08:30 07/19/24 09:00 Temperature Pulse Rate 77 79 Respiratory Rate 22 25 H Blood Pressure 152/81 H Pulse Oximetry 93 95 Oxygen Delivery Method 07/19/24 09:00 07/19/24 09:30 07/19/24 09:30 Temperature Pulse Rate 78 Respiratory Rate 25 H Blood Pressure 140/87 134/78 Pulse Oximetry 97 Oxygen Delivery Method Room Air 07/19/24 10:00 07/19/24 10:00 07/19/24 10:30 Temperature Pulse Rate 83 87 Respiratory Rate 23 Blood Pressure 141/81 H Pulse Oximetry 95 97 Oxygen Delivery Method 07/19/24 10:30 Temperature Pulse Rate Respiratory Rate Blood Pressure 139/83 Pulse Oximetry Oxygen Delivery Method Medical Decision Making Lab Data Lab results reviewed: Yes I reviewed the patient's lab results. Lab results narrative: White blood cell count 6800, hemoglobin 15.3, platelets adequate. Glucose 104. BUN 14 with creatinine 0.78 normal renal function. Serum CO2 23 normal. Electrolytes unremarkable. Liver functions and lipase normal. Troponin negative/unmeasurable for 2 sets. 07/19/24 07:30 07/19/24 07:30 Labs: Lab Results 07/19/24 07/19/24 Range/Units 07:30 09:30 WBC 6.8 (4.5-11.0) X10^3/uL RBC 4.78 (4.0-5.2) X10^6/uL Hgb 15.3 (12.0-16.0) g/dL Hct 45.6 (36-46) % MCV 95.3 (80-100) fL MCH 31.9 (26-34) PG MCHC 33.5 (30-36) % RDW 13.1 (11.6-14.8) % Plt Count 310 (150-400) X10^3/uL Neut % (Auto) 76.0 H (50-75) % Lymph % (Auto) 18.4 L (25-40) % [place] % (Auto) 4.3 (3-14) % Eos % (Auto) 0.4 L (2-4) % Baso % (Auto) 0.9 (0-2) % Neut # (Auto) 5200 (9759-8203) /uL Lymph # (Auto) 1200 (2799-2505) /uL [place] # (Auto) 300 (0-900) /uL Eos # (Auto) 0 (0-450) /uL Baso # (Auto) 100 (0-100) /uL PT 11.4 (9.4-12.5) SECONDS INR 1.0 (0.9-1.3) APTT 35 (25.1-36.5) SECONDS Sodium 140 (137-145) mmol/L Potassium 3.6 (3.4-5.1) mmol/L Chloride 103 (98-107) mmol/L Carbon Dioxide 23 (22-32) mmol/L BUN 14 (7-17) mg/dL Creatinine 0.78 (0.52-1.04) mg/dL Estimated GFR > 60 (>60) mL/min BUN/Creatinine Ratio 17.9 (6-22) Glucose 104 (80-110) mg/dL Calcium 9.9 (8.4-10.2) mg/dL Magnesium 2.0 (1.6-2.3) mg/dL Total Bilirubin 0.7 (0.2-1.3) mg/dL AST 30 (14-36) IU/L ALT 20 (<35) IU/L Alkaline Phosphatase 109 (38-126) U/L Total Creatine Kinase 77 (30-135) U/L Troponin I < 0.012 < 0.012 (0.01-0.034) ng/mL NT-Pro-B Natriuret Pep 56 (<125) pg/mL Total Protein 9.0 H (6.3-8.2) g/dL Albumin 5.2 H (3.5-5.0) g/dL Globulin 3.8 (1.7-4.1) g/dL Albumin/Globulin Ratio 1.4 (1.0-2.8) Lipase 40 (23-300) U/L ECG Data Attestation: I personally reviewed and interpreted this ECG as follows: Interpretation: Normal sinus rhythm with rate 74, no obvious ST segment elevation or depression changes. SC 120, QRS 88, QTC 439. MDM Narrative Medical decision making narrative: 64-year-old female with palpitations overnight, history of anxiety, recent abdominal pain workup with CT scan negative, feels that her symptoms have been worse since stopping Zyrtec last month. Had some chest discomfort overnight as well. Currently without chest discomfort or palpitation like symptoms. No syncope or presyncopal symptoms. Afebrile, sirs screen negative. Screening EKG unremarkable. Initial troponin negative/unmeasurable, interim repeat troponin also negative. Consider cardiac monitoring as an outpatient, contact information for local conference center manager provided, has no local PCP, contact information for calling for PCP also provided. She would like something for anxiety, trial of hydroxyzine after discussion of antihistamine classes. We will send prescription for hydroxyzine trial to her pharmacy. Discharged home with family. Return precautions discussed. Follow up with Cardiology for possible outpatient cardiac monitoring and further workup as an outpatient for now. Home with . Discharge Plan Departure Patient Disposition: Home Clinical Impression: Heart palpitations, Anxiety Instructions: DI for Atypical Chest Pain, DI for Arrhythmias Activity Restrictions/Additional Instructions: Ms Rao, You had reported history of anxiety, chest palpitation like symptoms with chest discomfort overnight. EKG and serial blood tests not suggestive of heart attack at this time. No abnormal rhythms on awake overnight monitor noted. Screening labs also unremarkable. Trial of hydroxyzine antihistamine for anxiety, prescription sent to your pharmacy. Consider outpatient awake overnight monitor to screen for cardiac rhythm problems, though none detected so far with your emergency department evaluation. Contact information for local conference center manager on-call provided. Consider calling for PCP establish care visit, at [phone]. Further workup as an outpatient for now. Return to this/nearest emergency department for any change worsening symptoms or any concerns prior. Thank you for allowing our team to evaluate you today. Prescriptions: New hydroxyzine HCl 50 mg tablet 50 mg PO TID PRN (Reason: anxiety) Qty: 60 0RF No Action clonazepam 0.5 mg tablet 0.5 mg PO TID Qty: 10 0RF Hold Instructions: side effects eszopiclone [Lunesta] 1 mg tablet 1 mg PO BEDTIME PRN (Reason: sleep) Hold Instructions: starting quetiapine at HS 6/20 pantoprazole [Protonix] 20 mg tablet,delayed release (DR/EC) 20 mg PO DAILY Qty: 30 0RF Referrals: Priscilla Morris PA-C [Primary Care Provider] - Zahra Becker DO [Physician] - Stand Alone Forms: Patient Portal/API/Survey
--- NOTE | 2024-07-19 07:25 | DI.RAD.S_ITS ---
PROCEDURE: XR CHEST 1V INDICATIONS: chest pain TECHNIQUE: One view of the chest was acquired. COMPARISON: [facility], CR, XR CHEST 2V, 07/25/2019, 4:50. [facility], CR, XR CHEST 1V, 05/26/2019, 6:28. FINDINGS AND IMPRESSION: On this single view study, no consolidation or pleural effusion. Heart size is at the upper limit of normal, unchanged. Degenerative osseous findings. Dictated by: Frank Gorman M.D. on 07/19/2024 at 7:47 Approved by: Frank Gorman M.D. on 07/19/2024 at 7:48
--- NOTE | 2024-07-19 07:25 | EKG_ITS ---
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
[2024-07-19 07:39] LABS: Add Manual Diff / Slide Review NO; Basophils Absolute Auto 100 /uL (0-100); Basophils Percent Auto 0.9 % (0-2); Eosinophils Absolute Auto 0 /uL (0-450); Eosinophils Percent Auto 0.4 % (2-4); Hematocrit 45.6 % (36-46); Hemoglobin 15.3 g/dL (12.0-16.0); Lymphocytes Absolute Auto 1200 /uL (1100-4500); Lymphocytes Percent Auto 18.4 % (25-40); Mean Corpuscular HGB Conc 33.5 % (30-36); Mean Corpuscular Hemoglobin 31.9 PG (26-34); Mean Corpuscular Volume 95.3 fL (80-100); Monocytes Absolute Auto 300 /uL (0-900); Monocytes Percent Auto 4.3 % (3-14); Neutrophils Absolute Auto 5200 /uL (1500-7000); Platelet Count 310 X10^3/uL (150-400); Red Blood Cell Count 4.78 X10^6/uL (4.0-5.2); Red Cell Distribution Width 13.1 % (11.6-14.8); White Blood Cell Count 6.8 X10^3/uL (4.5-11.0)
[2024-07-19 07:45] LABS: Prothrombin Time 11.4 SECONDS (9.4-12.5)
[2024-07-19 07:48] LABS: PTT Partial Thromboplastin Tim 35 SECONDS (25.1-36.5)
[2024-07-19 07:55] LABS: Alanine Aminotransferase 20 IU/L (<35); Albumin 5.2 g/dL (3.5-5.0); Albumin Globulin Ratio 1.4 (1.0-2.8); Alkaline Phosphatase 109 U/L (38-126); Aspartate Aminotransferase 30 IU/L (14-36); BUN Creatinine Ratio 17.9 (6-22); Bilirubin Total 0.7 mg/dL (0.2-1.3); Blood Urea Nitrogen 14 mg/dL (7-17); Calcium 9.9 mg/dL (8.4-10.2); Carbon Dioxide 23 mmol/L (22-32); Chloride 103 mmol/L (98-107); Creatine Kinase 77 U/L (30-135); Estimated Glomerular Filt Rate > 60 mL/min (>60); Globulin 3.8 g/dL (1.7-4.1); Glucose 104 mg/dL (80-110); Lipase 40 U/L (23-300); Potassium 3.6 mmol/L (3.4-5.1); Sodium 140 mmol/L (137-145)
[2024-07-19 08:05] LABS: HEMOLYSIS < 15 (0-50); NT-proBNP (BNP-Adult 18+) 56 pg/mL (<125)
[2024-07-19 08:06] LABS: Troponin I < 0.012 ng/mL (0.01-0.034)
--- NOTE | 2024-07-19 08:22 | PC.NURSE ---
Patient declined aspirin due to allergy of dizziness. Provider informed.
[2024-07-19 09:57] LABS: Troponin I < 0.012 ng/mL (0.01-0.034)
== END 2024-07-19 11:09 | disposition home or self-care (01) ==
PROVIDERS: Emergency Provider Emergency Medicine; PCP Physician Assistant
DX: R00.2 Palpitations (principal); F41.9 Anxiety disorder, unspecified; R07.89 Other chest pain
CPT/HCPCS: 36415; 71045; 80053; 82550; 83690; 83735; 83880; 84484; 85025; 85610; 85730; 93005; 99283; 99284

== ENCOUNTER → 2024-09-24 12:46 | Outpatient (CLI) | payer OTHER, SELFPAY ==
[2024-09-24 13:25] LABS: Calcium 9.7 mg/dL (8.4-10.2)
[2024-09-24 19:33] LABS: Vitamin D 25 Hydroxy (D3) 33.2 ng/mL (30.0-100.0)
[2024-09-28 03:11] LABS: Parathyroid Hormone Int 64 pg/mL (15-65)
== END ==
PROVIDERS: PCP Naturopath; Referring Provider Naturopath; Visit Provider Naturopath
DX: E83.52 Hypercalcemia (principal)
CPT/HCPCS: 36415; 82306; 82310; 83970

== ENCOUNTER 2025-02-18 16:22 | Emergency (ER) | payer OTHER, SELFPAY ==
[2025-02-18 16:31] VITALS: BP 155/85; PULSE 85; RESP 18; TEMP 37.2; O2SAT 98; BMI 26.6
[2025-02-18 17:20] LABS: UR Morphine/Opiate cutoff 300 Negative (Negative); Ur Specific Gravity Normal (Normal); Urine MDMA Negative (Negative); Urine Methamphetamines Negative (Negative); Urine Tetrahydrocannabinol Negative (Negative); Urine Tricyclic Antidepressant Negative (Negative)
[2025-02-18 17:22] LABS: Culture Indicated Urine Cult Not Indicated
--- NOTE | 2025-02-18 18:43 | CM.SWNOTE ---
ED CHEMICALS FERMENTATION OPERATOR Assessment Discharge Planning/Care Management ED Crisis Response Assessment Start: 02/18/25 16:42 Freq: Q4H Status: Active Protocol: Document 02/18/25 16:42 AI (Rec: 02/18/25 18:10 AI [id number]) ED Crisis Response Assessment CHEMICALS FERMENTATION OPERATOR Assessment Type Other Reason for CHEMICALS FERMENTATION OPERATOR pt wanting detox from benzos, pt reports current Referral Anxiety, depression and PTSD hx of same in 2019, left AMA from [facility] earlier this month Referred by ED provider Presenting Problem benzo withdrawal Suicidal thoughts No Past Suicidal No thoughts Current Suicidal No thoughts Prior Suicide No attempts Current plan for No self harm Thoughts of harm to No others Past thoughts of No harm to others Current thoughts of No harming others Prior attempts to No harm others Current plan to harm No others ED Psychiatric Symptoms Assessment Start: 02/18/25 16:42 Freq: Q2H Status: Active Protocol: Document 02/18/25 16:42 AI (Rec: 02/18/25 18:10 AI [id number]) Psychiatric Symptoms Assessment Symptoms/Complaint Feels Depressed Onset ongoing Duration Getting Worse History Of Same Yes Context New Medications,Not Taking Psychiatric Medications Improves With Nothing Worsens With Nothing Associated Racing Thoughts Psychiatric Symptoms Associated Symptoms Denies Other Symptoms Details of Plan no plan Level of Observation Intermittent Level of Alert,Awake Consciousness Patient Orientation Name,Age,Birthday,Month,Date,Year,Day of Week,Place, Situation Patient Behavior/ Anxious Mood Ability to Follow Good Directions Affect Description Anxious Patient Appearance Well Groomed Hallucination Type None Delusion Description Not Present Thought Process: Disorganized Depressive Symptoms Difficulty Concentrating,Difficulty Sleeping,Difficulty Making Decisions,Hopelessness,Increased Anxiety, Increased Fatigue,Increased Irritability,Loss of Interest in Activities,Unhappiness Feelings of Yes Hopelessness Suicidal Ideation None Suicide Plan No Plan Homicidal Ideation None Nausea/Vomiting None CHEMICALS FERMENTATION OPERATOR - Deputy Grand Jury Assessment Start: 02/18/25 18:16 Freq: Status: Active Protocol: Document 02/18/25 18:16 LN (Rec: 02/18/25 18:43 LN [id number]) CHEMICALS FERMENTATION OPERATOR/Deputy Grand Jury Assessment Start date 02/18/25 Visit Start Time 17:15 End date 02/18/25 Visit End Time 17:30 Total time Care 15 minutes Management spent on patient visit-in minutes Presenting Problem Patient presents to ED via private vehicle with spouse due to concern for increased debilitating anxiety impacting daily activities at home, as well as concern for withdrawals from benzodiazepines. Patient endorses concern for safety at home. Precipitating Event( Patient was recently admitted at [facility] in the unit s) last week twice and left AMA both times (02/08/25-) and (02/10/25-02/12/25). Patient presents with adamant concern that this anxiety and symptoms are triggered from the medication protonix that she was put on in June 2024. Patient states that she has had to be on FMLA twice this year and been significantly impacted with anxiety and depression. Patient endorses concern for lack of sleep. Per EMR patient has hx of MH crisis in 2019 resulting in hospitalization, with similar presentation placing concern for causation of anxiety and depression symptoms because of medications prescribed. Patient Strengths Patient has supportive sposue Current Behavioral Patient sees therapist Estella Alan, Ed.S, [facility] at [facility] Provider([facility]) [facility] regularly (ph. # [phone] Facility, [id number]) Provider, Ph. # Patient states she previously saw Psychiatrist Dr. Hoang but does not have a current psychiatrist. Psych. Hx Mental Patient endorses hx of Anxiety, PTSD and Depression. Health and Chemical Patient denies any substance or ETOH use. Dependency Family Hx of None reported Behavioral Abuse Psychiatric Patient has hx of hospitalization in September [address] [facility] ( [facility], patient endorses hx of date(s)/location) hospitalization at [facility] in 2019. Patient has hx of voluntary hospitalization twice this month at [facility], patient left AMA both times. Psychosocial Patient is 64 y/o female who resides in [place] with information & spouse. Patient endorses spouse as support. Support Systems School/Work Patient currently on FMLA Legal Matters - None reported Outstanding Issues Orientation (Person/ A/Ox4 Place/Time) Stated Mood anxious Affect (Congruent anxious, full range, congruent with mood with Mood?) Thought Content - Patient denies visual hallucinations, auditory Specify/Describe hallucinations and paranoia. Obsessions, Delusions, Hallucinations Thought Processes ( detailed Logical-Coherent- Goal Directed- Detailed-Tangential- Circumstantial- Logical-Disorganized -Thought Blocking) Speech (Normal-Slow- soft/normal Jtkcdoz-Wyfkr-Tqhb- Loud-Pressured) Motor (Normal- normal Uzbiblkhu-Icid-Optph ) Insight (Good-Fair- limited Poor/Limited) Judgement (Good-Fair limited -Poor/Limited) Impulse Control ( adequate Adequate-Impaired) Memory (Immediate- intact, not formally assessed Recent-Remote, Impaired-Intact) Concentration ( intact Intact-Impaired) Attention (Intact- intact Impaired) Behavior ( appropriate Appropriate- Inappropriate) Additional Comment patient presents as calm, cooperative and communicative . Suicidal Ideation ( No Plan) Homicidal Ideation ( No Plan) Comment Patient denies HI and SI. Intervention CHEMICALS FERMENTATION OPERATOR enters room to meet with patient, present in room is patient's spouse. Patient gives consent for patient' s spouse to be present. Patient presents with concern for her anxiety, depression, difficulty partaking in ADLs at home and lack of sleep. Patient endorses that she was not comfortable in the Psychiatric environment and does not feel comfortable returning home. Patient endorses that she is seeking benzodiazepine withdrawal detox. Per ED provider Dr. Suarez it is not identified that patient is withdrawing from benzodiazepines and patient 's presentation is psychiatric in nature. Patient endorses concerns for agoraphobia, not being able to leave the home, patient states that she has missed therapy appts due to this. Patient endorses concern maintaining her job as she is on FMLA for the second time this year. Patient endorses concern for irritability, easily triggered by anxiety and concern for lack of sleep. Patient states she is seeking rehab to wean off the poison. Patient states she feels imprisoned at home. Patient endorses preference to go to [facility] as mentioned during her stay at [facility], it is reported that patient had initial intake screening via phone with this facility. CHEMICALS FERMENTATION OPERATOR calls intake there, it is reported that patient cancelled admission assessment and that they did not accept patient's insurance. Intake reported concern that patient was not willing to admit dependance of benzodiazpines and presented as fixated on causation from medications. It is reported that [facility] does not provide detox services. CHEMICALS FERMENTATION OPERATOR reviews this with patient and patient does not recall that they did not take her insurance or that the do not provide detox. It is the opinion of this CHEMICALS FERMENTATION OPERATOR that patient would benefit from inpatient hospitalization for medication management, safety and crisis stabilization due to concern Generalized Anxiety Disorder and Grave Disability. CHEMICALS FERMENTATION OPERATOR reviews this with ED provider Dr. Suarez, who indicates agreement and understanding. Dr. Suarez reports that patient does not meet criteria for detox. RA Plan ED provider to evaluate patient further and discuss realistic expectations of plan of care. After ED provider meets with patient, patient is voluntary for inpatient hospitalization. CHEMICALS FERMENTATION OPERATOR and ED team to seek voluntary inpatient placement for patient. IRMA CazaresSW
--- NOTE | 2025-02-18 18:58 | EKG_ITS ---
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
[2025-02-18] MEDS: OLANZapine ODT 10 MG TAB PO ×2 (19:20→23:00)
[2025-02-18 19:38] VITALS: BP 157/65; PULSE 70; O2SAT 98
[2025-02-18 19:39] VITALS: BP 135/81; PULSE 70; RESP 16; O2SAT 99
[2025-02-18 19:44] LABS: Alanine Aminotransferase 56 IU/L (<35); Albumin 4.8 g/dL (3.5-5.0); Albumin Globulin Ratio 1.4 (1.0-2.8); Alkaline Phosphatase 103 U/L (38-126); Blood Urea Nitrogen 12 mg/dL (7-17); Calcium 9.7 mg/dL (8.4-10.2); Carbon Dioxide 28 mmol/L (22-32); Chloride 101 mmol/L (98-107); Estimated Glomerular Filt Rate > 60 mL/min (>60); Ethanol (ETOH) < 10 mg/dL (<10); Globulin 3.4 g/dL (1.7-4.1); Glucose 100 mg/dL (70-99); HEMOLYSIS < 15 (0-50); Potassium 4.9 mmol/L (3.4-5.1); Sodium 139 mmol/L (137-145); Total Protein 8.2 g/dL (6.3-8.2)
[2025-02-18 20:20] LABS: TSH w/ Reflex to FT4 1.78 uIU/mL (0.47-4.68)
[2025-02-18 20:21] LABS: COVID19 -Nasal RAPID Negative (Negative)
--- NOTE | 2025-02-18 21:51 | ED.PSYCH ---
HPI - Psych <Tabitha Suarez MD - Last Filed: 02/21/25 23:24> General Chief Complaint: Psychiatric Symptoms Stated Complaint: coming off meds, withdrawal affecting mental state Time Seen by Provider: 02/18/25 17:00 Source: patient Mode of arrival: Ambulatory History of Present Illness HPI Narrative: 64-year-old woman presents with concern for benzodiazepine withdrawal as every time she does not take 2.5 mg of diazepam she has increasing anxiety. She has been on 2.5 mg b.i.d. of diazepam for 6 days now. She has a history of anxiety disorder. In 2019 she had an episode of sudden anxiety in depression she did not have significant benefit with medications and once all medications were stopped symptoms eventually abated. Over the last 6 months she has again been having increasing difficulties with anxiety to the point of agoraphobia, not being able to get off the couch, significant interference with activities of daily living as well as personal relationships, job difficulties and I believe is currently on FMLA leave. She was seen at [facility] and admitted to their psychiatric facility from February 11 and left against medical advice on the as there was another patient who was quite agitated who made her anxiety worse. She reports that she has significant adverse reactions with almost all medications. She notes that hydroxyzine, antidepressants all give her dramatic increased psychomotor agitation. She has been having significant difficulty with sleep. She feels that her anxiety was significantly worsened after taking pantoprazole for 2 weeks. She was prescribed 25 mg of quetiapine which did not help with sleep but did not necessarily seemed to make her more agitated. It seems that the majority of SSRIs and SNRIs have always caused worsening agitation. She is to the point now where she is afraid to be alone, afraid to go out, unable to attend to basic grooming and self-care, difficulty even getting on the couch. She comes to the ER today looking for further help. 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 Recognizing the degree of debility that she is currently experiencing she is open to inpatient psychiatric treatment. She initially is requesting help with detox. In the last 6 days she has had a total of 5 mg of diazepam each day. This is not benzodiazepine withdrawal. It does appear that the benzodiazepines are helpful in controlling her anxiety and as they were offer anxiety is returning. Related Data Home Medications ?Medication ?Instructions ?Recorded ?Confirmed eszopiclone 1 mg tablet (Lunesta) 1 mg PO BEDTIME PRN sleep 10/06/19 11/01/19 Held on 10/06/19. Instructions: starting quetiapine at HS 10/06/19 Previous Rx's ?Medication ?Instructions ?Recorded clonazepam 0.5 mg tablet 0.5 mg PO TID #10 tabs 10/27/19 Held on 10/28/19. Instructions: side effects pantoprazole 20 mg tablet,delayed 20 mg PO DAILY #30 tabs 07/16/24 release (Protonix) hydroxyzine HCl 50 mg tablet 50 mg PO TID PRN anxiety #60 tabs 07/19/24 quetiapine 25 mg tablet 25 mg PO BEDTIME #30 tabs 08/30/24 Allergies Allergy/AdvReac Type Severity Reaction Status Date / Time azithromycin Allergy Intermediate Vomiting Verified 02/18/25 16:41 latex Allergy Intermediate Irritable Verified 02/18/25 16:41 amoxicillin Allergy Unknown Verified 02/18/25 16:41 aspirin AdvReac Intermediate Verified 02/18/25 16:41 diphenhydramine (From AdvReac Intermediate Anxiety Verified 02/18/25 16:41 Benadryl) hydroxyzine AdvReac Intermediate Anxiety Verified 02/18/25 16:41 lactose AdvReac Intermediate Diarrhea Verified 02/18/25 16:41 phenobarbital AdvReac Intermediate Anxiety Verified 02/18/25 16:41 trazodone AdvReac Intermediate Anxiety Verified 02/18/25 16:41 Review of Systems <Tabitha Suarez MD - Last Filed: 02/21/25 23:24> Review of Systems Narrative: Pertinent positive and negative findings as per HPI Patient History <Tabitha Suarez MD - Last Filed: 02/21/25 23:24> Medical History (Updated 02/18/25 @ 22:05 by Tabitha Suarez MD) 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 Anxiety disorder, unspecified Segmental and somatic dysfunction of abdomen and other regions Segmental and somatic dysfunction of sacral region Pelvic somatic dysfunction Segmental and somatic dysfunction of rib cage Segmental and somatic dysfunction of thoracic region Cervical somatic dysfunction Cranial somatic dysfunction Back stiffness Chronic neck pain Stiff neck BPPV (benign paroxysmal positional vertigo) Establishing care with new doctor, encounter for Genital herpes Seasonal allergies Surgical History Status post delivery (10/15/79) Status post appendectomy Family History Father Stroke Mother Stroke Dementia Sister Stroke Social History marital status: household members: spouse lives independently: Yes caregiver/support person: No occupational status: employed second hand exposure: No alcohol intake: current substance use type: does not use alcohol intake frequency: 0-2 drinks per day Exam <Tabitha Suarez MD - Last Filed: 02/21/25 23:24> Initial Vital Signs Initial Vital Signs: Vital Signs Temperature 99.0 F 02/18/25 16:31 Pulse Rate 85 02/18/25 16:31 Respiratory Rate 18 02/18/25 16:31 Blood Pressure 155/85 H 02/18/25 16:31 Pulse Oximetry 98 02/18/25 16:31 Oxygen Delivery Method Room Air 02/18/25 16:31 General: Anxious, frightened, tearful but good eye contact nonpressured speech HEENT: Moist mucous membranes, normal sclera with reactive pupils, Respiratory: Lungs are clear to auscultation, Full and symmetrical air movement Cardiac: Regular rate and rhythm no murmurs Abdomen: Soft, nontender, no rebound or guarding, no flank pain Skin: Warm and dry, no rashes Neurologic: Grossly neurologically intact with no obvious asymmetries or abnormalities Extremities: No trauma, well perfused Psych: Cooperative, insight and attribution of her anxiety is poor, significant psychomotor agitation, she describes auditory and visual hallucinations associated with awakening from sleep until she is fully awake and reoriented. <Kristie Oglesby DO - Last Filed: 02/19/25 09:49> Initial Vital Signs Initial Vital Signs: Vital Signs Temperature 99.0 F 02/18/25 16:31 Pulse Rate 85 02/18/25 16:31 Respiratory Rate 18 02/18/25 16:31 Blood Pressure 155/85 H 02/18/25 16:31 Pulse Oximetry 98 02/18/25 16:31 Oxygen Delivery Method Room Air 02/18/25 16:31 Course <Tabitha Suarez MD - Last Filed: 02/21/25 23:24> Orders Ordered: Discontinued Medications Olanzapine (Olanzapine Odt 10 Mg Tab) 10 mg PO NOW ONE Stop: 02/18/25 18:58 Last Admin: 02/18/25 19:20 Dose: 10 mg Documented By: ALICIA Olanzapine (Olanzapine Odt 10 Mg Tab) 10 mg PO NOW ONE Stop: 02/18/25 22:13 Last Admin: 02/18/25 23:00 Dose: 10 mg Documented By: ALICIA Vital Signs Vital signs: Vital Signs - 8 hr 02/19/25 09:44 Temperature 97.5 F L Pulse Rate 74 Respiratory Rate 18 Blood Pressure 116/69 Pulse Oximetry 92 <Kristie Oglesby DO - Last Filed: 02/19/25 09:49> Orders Ordered: Discontinued Medications Olanzapine (Olanzapine Odt 10 Mg Tab) 10 mg PO NOW ONE Stop: 02/18/25 18:58 Last Admin: 02/18/25 19:20 Dose: 10 mg Documented By: ALICIA Olanzapine (Olanzapine Odt 10 Mg Tab) 10 mg PO NOW ONE Stop: 02/18/25 22:13 Last Admin: 02/18/25 23:00 Dose: 10 mg Documented By: ALICIA Vital Signs Vital signs: Vital Signs - 8 hr 02/19/25 09:44 Temperature 97.5 F L Pulse Rate 74 Respiratory Rate 18 Blood Pressure 116/69 Pulse Oximetry 92 [facility] - Psych <Tabitha Suarez MD - Last Filed: 02/21/25 23:24> Lab Data 02/19/25 08:40 02/18/25 19:25 Labs: Lab Results 02/18/25 02/18/25 02/18/25 Range/Units 16:50 19:21 19:25 WBC (4.5-11.0) X10^3/uL RBC (4.0-5.2) X10^6/uL Hgb (12.0-16.0) g/dL Hct (36-46) % MCV (80-100) fL MCH (26-34) PG MCHC (30-36) % RDW (11.6-14.8) % Plt Count (150-400) X10^3/uL Neut % (Auto) (50-75) % Lymph % (Auto) (25-40) % Ellis % (Auto) (3-14) % Eos % (Auto) (2-4) % Baso % (Auto) (0-2) % Neut # (Auto) (6608-4744) /uL Lymph # (Auto) (4274-2521) /uL Ellis # (Auto) (0-900) /uL Eos # (Auto) (0-450) /uL Baso # (Auto) (0-100) /uL Sodium 139 (137-145) mmol/L Potassium 4.9 (3.4-5.1) mmol/L Chloride 101 (98-107) mmol/L Carbon Dioxide 28 (22-32) mmol/L BUN 12 (7-17) mg/dL Creatinine 0.79 (0.52-1.04) mg/dL Estimated GFR > 60 (>60) mL/min BUN/Creatinine Ratio 15.2 (6-22) Glucose 100 H (70-99) mg/dL Calcium 9.7 (8.4-10.2) mg/dL Total Bilirubin 0.4 (0.2-1.3) mg/dL AST 55 H (14-36) IU/L ALT 56 H (<35) IU/L Alkaline Phosphatase 103 (38-126) U/L Total Protein 8.2 (6.3-8.2) g/dL Albumin 4.8 (3.5-5.0) g/dL Globulin 3.4 (1.7-4.1) g/dL Albumin/Globulin Ratio 1.4 (1.0-2.8) TSH 1.78 (0.47-4.68) uIU/mL Urine RBC 1-5/hpf (0-5/HPF) Urine WBC 1-5/hpf (0-5/HPF) Ur Squamous Epith Cells 1-5 /hpf (0-5/HPF) Urine Bacteria Occasional (0-1) (None) Ur Culture Indicated? Cult not indicated Vol Urine Centrifuged 10ml (spun) U Opiates 300ng/mL cut Negative (Negative) Ur Oxycodone Screen Negative (Negative) Urine Methadone Screen Negative (Negative) Ur Barbiturates Screen Negative (Negative) U Tricyclic Antidepress Negative (Negative) Ur Phencyclidine Scrn Negative (Negative) Ur Amphetamines Screen Negative (Negative) U Methamphetamines Scrn Negative (Negative) Ur MDMA Scrn (Ecstasy) Negative (Negative) U Benzodiazepines Scrn Positive H (Negative) Urine Cocaine Screen Negative (Negative) U Marijuana (THC) Screen Negative (Negative) Urine pH Normal (Normal) Urine Specific [place] Normal (Normal) Ethyl Alcohol < 10 (<10) mg/dL Ur Creatinine Normal (Normal) SARS-CoV-2 (PCR) Negative (Negative) 02/19/25 Range/Units 08:40 WBC 6.8 (4.5-11.0) X10^3/uL RBC 4.76 (4.0-5.2) X10^6/uL Hgb 15.4 (12.0-16.0) g/dL Hct 44.9 (36-46) % MCV 94.2 (80-100) fL MCH 32.2 (26-34) PG MCHC 34.2 (30-36) % RDW 12.9 (11.6-14.8) % Plt Count 281 (150-400) X10^3/uL Neut % (Auto) 62.3 (50-75) % Lymph % (Auto) 28.8 (25-40) % Ellis % (Auto) 5.8 (3-14) % Eos % (Auto) 1.7 L (2-4) % Baso % (Auto) 1.4 (0-2) % Neut # (Auto) 4200 (4116-0490) /uL Lymph # (Auto) 2000 (7568-2199) /uL Ellis # (Auto) 400 (0-900) /uL Eos # (Auto) 100 (0-450) /uL Baso # (Auto) 100 (0-100) /uL Sodium (137-145) mmol/L Potassium (3.4-5.1) mmol/L Chloride (98-107) mmol/L Carbon Dioxide (22-32) mmol/L BUN (7-17) mg/dL Creatinine (0.52-1.04) mg/dL Estimated GFR (>60) mL/min BUN/Creatinine Ratio (6-22) Glucose (70-99) mg/dL Calcium (8.4-10.2) mg/dL Total Bilirubin (0.2-1.3) mg/dL AST (14-36) IU/L ALT (<35) IU/L Alkaline Phosphatase (38-126) U/L Total Protein (6.3-8.2) g/dL Albumin (3.5-5.0) g/dL Globulin (1.7-4.1) g/dL Albumin/Globulin Ratio (1.0-2.8) TSH (0.47-4.68) uIU/mL Urine RBC (0-5/HPF) Urine WBC (0-5/HPF) Ur Squamous Epith Cells (0-5/HPF) Urine Bacteria (None) Ur Culture Indicated? Vol Urine Centrifuged U Opiates 300ng/mL cut (Negative) Ur Oxycodone Screen (Negative) Urine Methadone Screen (Negative) Ur Barbiturates Screen (Negative) U Tricyclic Antidepress (Negative) Ur Phencyclidine Scrn (Negative) Ur Amphetamines Screen (Negative) U Methamphetamines Scrn (Negative) Ur MDMA Scrn (Ecstasy) (Negative) U Benzodiazepines Scrn (Negative) Urine Cocaine Screen (Negative) U Marijuana (THC) Screen (Negative) Urine pH (Normal) Urine Specific [place] (Normal) Ethyl Alcohol (<10) mg/dL Ur Creatinine (Normal) SARS-CoV-2 (PCR) (Negative) Urine Dip Bedside Urine Glucose Negative Bedside Urine Bilirubin - Negative Bedside Urine Ketone - Negative Urine Specific [place] 1.005 Bedside Urine Occult Blood - Negative Bedside Urine pH 7.5 Bedside Urine Protein - Negative Bedside Urine Urobilinogen - Negative Bedside Urine Nitrite - Negative Bedside Urine Leukocytes ++ 125 Esterase MDM Narrative Medical decision making narrative: CC: Severe anxiety Complicating co-morbidities: Previous diagnosis of generalized anxiety disorder, agoraphobia, major depressive disorder, exceptional sensitivity to all medications Data collected from: patient, has been Medical records reviewed: Notes from [facility] psychiatric admission last week are reviewed. Was noted that they were started on buspirone diazepam and sertraline and with this combination of medications as well as therapy that showed rapid and steady improvement and thought organization, decrease in anxiety intensity and more consistent mood stability. On discharge she has continued only a diazepam 2.5 mg b.i.d. as needed Differential considered: Generalized anxiety disorder, major depression with anxiety and psychomotor agitation, hypomania, acute psychosis Exam documented above, pertinent findings include: Other than psychomotor agitation her exam is benign Lab Test results independently reviewed as above. Pertinent findings: CBC is unremarkable Chemistries are reassuring. AST is minimally elevated at 55, ALT is minimally elevated at 56. Remainder of liver studies are unremarkable TSH is appropriate at 1.78 Urinalysis is unremarkable Urine toxicology screen is positive for benzodiazepines only Alcohol level is undetectable Independently reviewed EKG: Sinus rhythm at a rate of 69. QTC of 428 Consultations: Patient was evaluated by our social services counselor Treatments: Is shared decision-making we opted to try Zyprexa, she has not yet tried antipsychotics, to see if this might help with her psychomotor agitation and overall anxiety Re-evaluations: 1010pm patient is medically cleared After 10 mg of Zyprexa the patient is actually feeling much more calm. Significant decrease in the psychomotor agitation. She notes she was almost able to fall asleep. This is the 1st medication that she has had that she feels is actually been helpful without adverse effects. We did discuss a 2nd dose to see if she could actually fall asleep. She notes that part of the issue these last 6 months has been increased rumination and that is now troubling her the acute anxiety and severe psychomotor agitation has calmed slightly. Discussion: 64-year-old woman with 6 months of significantly increasing anxiety to the point of agoraphobia, interfering with general care, ability to work and ability to feel safe independently at home. She is agreeing to inpatient psychiatric treatment with the hope of stabilizing her mood in a monitored medical setting where she feels safe. [facility], will forward social work evaluation as well as this note. Patient is aware that dealing with her symptoms will likely be a management problem for an extended period of time rather than anything that is going to be fixed in 1-2 days and is willing to stay in a psychiatric care facility working with medications in a structured environment to get back to her usual state of health <Kristie Oglesby, DO - Last Filed: 02/19/25 09:49> Lab Data Labs: Lab Results 02/18/25 02/18/25 02/18/25 Range/Units 16:50 19:21 19:25 WBC (4.5-11.0) X10^3/uL RBC (4.0-5.2) X10^6/uL Hgb (12.0-16.0) g/dL Hct (36-46) % MCV (80-100) fL MCH (26-34) PG MCHC (30-36) % RDW (11.6-14.8) % Plt Count (150-400) X10^3/uL Neut % (Auto) (50-75) % Lymph % (Auto) (25-40) % Ellis % (Auto) (3-14) % Eos % (Auto) (2-4) % Baso % (Auto) (0-2) % Neut # (Auto) (6688-4078) /uL Lymph # (Auto) (2788-6106) /uL Ellis # (Auto) (0-900) /uL Eos # (Auto) (0-450) /uL Baso # (Auto) (0-100) /uL Sodium 139 (137-145) mmol/L Potassium 4.9 (3.4-5.1) mmol/L Chloride 101 (98-107) mmol/L Carbon Dioxide 28 (22-32) mmol/L BUN 12 (7-17) mg/dL Creatinine 0.79 (0.52-1.04) mg/dL Estimated GFR > 60 (>60) mL/min BUN/Creatinine Ratio 15.2 (6-22) Glucose 100 H (70-99) mg/dL Calcium 9.7 (8.4-10.2) mg/dL Total Bilirubin 0.4 (0.2-1.3) mg/dL AST 55 H (14-36) IU/L ALT 56 H (<35) IU/L Alkaline Phosphatase 103 (38-126) U/L Total Protein 8.2 (6.3-8.2) g/dL Albumin 4.8 (3.5-5.0) g/dL Globulin 3.4 (1.7-4.1) g/dL Albumin/Globulin Ratio 1.4 (1.0-2.8) TSH 1.78 (0.47-4.68) uIU/mL Urine RBC 1-5/hpf (0-5/HPF) Urine WBC 1-5/hpf (0-5/HPF) Ur Squamous Epith Cells 1-5 /hpf (0-5/HPF) Urine Bacteria Occasional (0-1) (None) Ur Culture Indicated? Cult not indicated Vol Urine Centrifuged 10ml (spun) U Opiates 300ng/mL cut Negative (Negative) Ur Oxycodone Screen Negative (Negative) Urine Methadone Screen Negative (Negative) Ur Barbiturates Screen Negative (Negative) U Tricyclic Antidepress Negative (Negative) Ur Phencyclidine Scrn Negative (Negative) Ur Amphetamines Screen Negative (Negative) U Methamphetamines Scrn Negative (Negative) Ur MDMA Scrn (Ecstasy) Negative (Negative) U Benzodiazepines Scrn Positive H (Negative) Urine Cocaine Screen Negative (Negative) U Marijuana (THC) Screen Negative (Negative) Urine pH Normal (Normal) Urine Specific [place] Normal (Normal) Ethyl Alcohol < 10 (<10) mg/dL Ur Creatinine Normal (Normal) SARS-CoV-2 (PCR) Negative (Negative) 02/19/25 Range/Units 08:40 WBC 6.8 (4.5-11.0) X10^3/uL RBC 4.76 (4.0-5.2) X10^6/uL Hgb 15.4 (12.0-16.0) g/dL Hct 44.9 (36-46) % MCV 94.2 (80-100) fL MCH 32.2 (26-34) PG MCHC 34.2 (30-36) % RDW 12.9 (11.6-14.8) % Plt Count 281 (150-400) X10^3/uL Neut % (Auto) 62.3 (50-75) % Lymph % (Auto) 28.8 (25-40) % Ellis % (Auto) 5.8 (3-14) % Eos % (Auto) 1.7 L (2-4) % Baso % (Auto) 1.4 (0-2) % Neut # (Auto) 4200 (4832-0196) /uL Lymph # (Auto) 2000 (1903-1818) /uL Ellis # (Auto) 400 (0-900) /uL Eos # (Auto) 100 (0-450) /uL Baso # (Auto) 100 (0-100) /uL Sodium (137-145) mmol/L Potassium (3.4-5.1) mmol/L Chloride (98-107) mmol/L Carbon Dioxide (22-32) mmol/L BUN (7-17) mg/dL Creatinine (0.52-1.04) mg/dL Estimated GFR (>60) mL/min BUN/Creatinine Ratio (6-22) Glucose (70-99) mg/dL Calcium (8.4-10.2) mg/dL Total Bilirubin (0.2-1.3) mg/dL AST (14-36) IU/L ALT (<35) IU/L Alkaline Phosphatase (38-126) U/L Total Protein (6.3-8.2) g/dL Albumin (3.5-5.0) g/dL Globulin (1.7-4.1) g/dL Albumin/Globulin Ratio (1.0-2.8) TSH (0.47-4.68) uIU/mL Urine RBC (0-5/HPF) Urine WBC (0-5/HPF) Ur Squamous Epith Cells (0-5/HPF) Urine Bacteria (None) Ur Culture Indicated? Vol Urine Centrifuged U Opiates 300ng/mL cut (Negative) Ur Oxycodone Screen (Negative) Urine Methadone Screen (Negative) Ur Barbiturates Screen (Negative) U Tricyclic Antidepress (Negative) Ur Phencyclidine Scrn (Negative) Ur Amphetamines Screen (Negative) U Methamphetamines Scrn (Negative) Ur MDMA Scrn (Ecstasy) (Negative) U Benzodiazepines Scrn (Negative) Urine Cocaine Screen (Negative) U Marijuana (THC) Screen (Negative) Urine pH (Normal) Urine Specific [place] (Normal) Ethyl Alcohol (<10) mg/dL Ur Creatinine (Normal) SARS-CoV-2 (PCR) (Negative) Urine Dip Bedside Urine Glucose Negative Bedside Urine Bilirubin - Negative Bedside Urine Ketone - Negative Urine Specific [place] 1.005 Bedside Urine Occult Blood - Negative Bedside Urine pH 7.5 Bedside Urine Protein - Negative Bedside Urine Urobilinogen - Negative Bedside Urine Nitrite - Negative Bedside Urine Leukocytes ++ 125 Esterase MDM Narrative Medical decision making narrative: CC: Severe anxiety Complicating co-morbidities: Previous diagnosis of generalized anxiety disorder, agoraphobia, major depressive disorder, exceptional sensitivity to all medications Data collected from: patient, has been Medical records reviewed: Notes from [facility] psychiatric admission last week are reviewed. Was noted that they were started on buspirone diazepam and sertraline and with this combination of medications as well as therapy that showed rapid and steady improvement and thought organization, decrease in anxiety intensity and more consistent mood stability. On discharge she has continued only a diazepam 2.5 mg b.i.d. as needed Differential considered: Generalized anxiety disorder, major depression with anxiety and psychomotor agitation, hypomania, acute psychosis Exam documented above, pertinent findings include: Other than psychomotor agitation her exam is benign Lab Test results independently reviewed as above. Pertinent findings: CBC is unremarkable Chemistries are reassuring. AST is minimally elevated at 55, ALT is minimally elevated at 56. Remainder of liver studies are unremarkable TSH is appropriate at 1.78 Urinalysis is unremarkable Urine toxicology screen is positive for benzodiazepines only Alcohol level is undetectable Independently reviewed EKG: Sinus rhythm at a rate of 69. QTC of 428 Consultations: Patient was evaluated by our social services counselor Treatments: Is shared decision-making we opted to try Zyprexa, she has not yet tried antipsychotics, to see if this might help with her psychomotor agitation and overall anxiety Re-evaluations: 1010pm patient is medically cleared After 10 mg of Zyprexa the patient is actually feeling much more calm. Significant decrease in the psychomotor agitation. She notes she was almost able to fall asleep. This is the 1st medication that she has had that she feels is actually been helpful without adverse effects. We did discuss a 2nd dose to see if she could actually fall asleep. She notes that part of the issue these last 6 months has been increased rumination and that is now troubling her the acute anxiety and severe psychomotor agitation has calmed slightly. Discussion: 64-year-old woman with 6 months of significantly increasing anxiety to the point of agoraphobia, interfering with general care, ability to work and ability to feel safe independently at home. She is agreeing to inpatient psychiatric treatment with the hope of stabilizing her mood in a monitored medical setting where she feels safe. [facility] has inpatient beds available, will forward social work evaluation as well as this note. Patient is aware that dealing with her symptoms will likely be a management problem for an extended period of time rather than anything that is going to be fixed in 1-2 days and is willing to stay in a psychiatric care facility working with medications in a structured environment to get back to her usual state of health Dr. Oglesby-I have seen evaluated patient myself she appears well this morning took her home medication. CBC actually was not ordered yesterday but is ordered this morning in his within normal limits. She has been accepted to psych facility and she is going voluntarily. Discharge Plan Departure Patient Disposition: Xfer Psychiatric Hosp Clinical Impression: Disturbance of sleep, Psychomotor agitation Anxiety disorder, unspecified Qualifiers: Anxiety disorder type: panic disorder without agoraphobia Qualified Code(s): F41.0 - Panic disorder [episodic paroxysmal anxiety] Prescriptions: No Action clonazepam 0.5 mg tablet 0.5 mg PO TID Qty: 10 0RF quetiapine 25 mg tablet 25 mg PO BEDTIME Qty: 30 0RF eszopiclone [Lunesta] 1 mg tablet 1 mg PO BEDTIME PRN (Reason: sleep) hydroxyzine HCl 50 mg tablet 50 mg PO TID PRN (Reason: anxiety) Qty: 60 0RF pantoprazole [Protonix] 20 mg tablet,delayed release (DR/EC) 20 mg PO DAILY Qty: 30 0RF Referrals: Camelia Schmitt MD [Primary Care Provider, Family Practice]
[2025-02-19 00:25] VITALS: BP 97/63; PULSE 72; RESP 16; O2SAT 94
--- NOTE | 2025-02-19 04:14 | PC.NURSE ---
Paperwork for Voluntary Admission reviewed with patient. She was given a copy after her signature. No further questions at this time. Sent via Right Fax back to [facility] at .
--- NOTE | 2025-02-19 04:18 | PC.NURSE ---
Working on admission to [facility].
--- NOTE | 2025-02-19 04:38 | PC.NURSE ---
Yuri from [facility] stated that Provider will arrive after 0630 am today 02/19/25 to review with hospitalist due to possible benzo withdrawl. They will contact us back after they have made a decision.
[2025-02-19 08:53] LABS: Add Manual Diff / Slide Review NO; Hematocrit 44.9 % (36-46); Hemoglobin 15.4 g/dL (12.0-16.0); Lymphocytes Absolute Auto 2000 /uL (1100-4500); Mean Corpuscular HGB Conc 34.2 % (30-36); Mean Corpuscular Hemoglobin 32.2 PG (26-34); Mean Corpuscular Volume 94.2 fL (80-100); Platelet Count 281 X10^3/uL (150-400)
--- NOTE | 2025-02-19 09:35 | PC.NURSE ---
Accepted at [facility] @[id number] Dr.Danielle Erickson RN #[phone] [facility] [address] ETA 0983
[2025-02-19 09:44] VITALS: BP 116/69; PULSE 74; RESP 18; TEMP 36.4; O2SAT 92
== END 2025-02-19 09:55 ==
PROVIDERS: Emergency Medicine; Emergency Provider Emergency Medicine; PCP Family Medicine
DX: F41.0 Panic disorder [episodic paroxysmal anxiety] (principal); R45.1 Restlessness and agitation; G47.9 Sleep disorder, unspecified
CPT/HCPCS: 36415; 80053; 80305; 80320; 81003; 81015; 84443; 85025; 87635; 93005; 99284